=== PATIENT | female | born 1945 | race Caucasian/White ===

== ENCOUNTER 2023-01-04 14:50 | Emergency (ER) | payer OTHER ==
--- OUTSIDE RECORDS SUMMARY | 2023-01-04 14:58 | XMS REPORT | Continuity of Care Document ---
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 Ibuprofen 2021-03 Yes 400mg Take 400 John sey 200 MG oral 0-05 mg by Seybold Cap 10:57: mouth 2 - 02 times Externa daily l Doxylamine 2021-03 Yes Take by Christi ey Succinate, 0-05 mouth Seybold Sleep, 10:57: nightly - (SLEEP AID 02 Externa OR) l Aspirin 81 2021-03 Yes 81mg Take 81 mg K elsey MG oral 0-05 by mouth Seybold Tablet 10:57: daily - Delayed 02 Externa Response l Ibuprofen 2021-03 Yes 400mg Take 400 John sey 200 MG oral 0-05 mg by Seybold Cap 10:57: mouth 2 - 02 times Externa daily l Doxylamine 2021-03 Yes Take by Christi ey Succinate, 0-05 mouth Seybold Sleep, 10:57: nightly - (SLEEP AID 02 Externa OR) l HYDROcodone 2021-03 Yes [id number] 1{tbl} Q.[id number] Take 1 [place] -Acetaminop 0-03 [id number] tablet by Anapsis hen 10-325 00:00: 3D mouth - MG oral 00 every 8 Externa Tablet hours as l needed for pain Ezetimibe 2021-03 Yes 10mg Take 1 [place] 10 MG oral 0-03 tablet (10 Sey bold Tablet 00:00: mg total) - 00 by mouth Externa daily l HYDROcodone 2021-03 Yes [id number] 1{tbl} Q.[id number] Take 1 [place] -Acetaminop 0-03 [id number] tablet by Seybold hen 10-325 00:00: 3D mouth - MG oral 00 every 8 Externa Tablet hours as l needed for pain Ezetimibe 2021-03 Yes 10mg Take 1 [place] 10 MG oral 0-03 tablet (10 Sey bold Tablet 00:00: mg total) - 00 by mouth Externa daily l HYDROcodone 2021-03 Yes [id number] 1{tbl} Q.[id number] Take 1 [place] -Acetaminop 0-03 [id number] tablet by Seybold hen 10-325 00:00: 3D mouth - MG oral 00 every 8 Externa Tablet hours as l needed for pain Ezetimibe 2021-03 Yes 10mg Take 1 [place] 10 MG oral 0-03 tablet (10 Sey bold Tablet 00:00: mg total) - 00 by mouth Externa daily l Pantoprazol Yes 40mg TAKE 1 Christi ey e Sodium 40 9-20 TABLET (40 Se ybold MG oral 00:00: MG TOTAL) - Tablet 00 BY MOUTH Externa Delayed DAILY l Response Alprazolam Yes .25mg Q.5D Take 1 Christi ey 0.25 MG 9-20 tablet Seybold oral Tablet 00:00: (0.25 mg - 00 total) by Externa mouth 2 l times daily as needed for sleep Pantoprazol 0 Yes 40mg TAKE 1 Christi ey e Sodium 40 9-20 TABLET (40 Se ybold MG oral 00:00: MG TOTAL) - Tablet 00 BY MOUTH Externa Delayed DAILY l Response Alprazolam Yes .25mg Q.5D Take 1 Christi ey 0.25 MG 9-20 tablet Seybold oral Tablet 00:00: (0.25 mg - 00 total) by Externa mouth 2 l times daily as needed for sleep Pantoprazol 2021-0 Yes 40mg TAKE 1 Christi ey e Sodium 40 9-20 TABLET (40 Se ybold MG oral 00:00: MG TOTAL) - Tablet 00 BY MOUTH Externa Delayed DAILY l Response Alprazolam 0 Yes .25mg Q.5D Take 1 Christi ey 0.25 MG 9-20 tablet Seybold oral Tablet 00:00: (0.25 mg - 00 total) by Externa mouth 2 l times daily as needed for sleep predniSONE 0 Yes 2.5mg Take 1 Christi ey 2.5 MG oral 9-12 tablet Seybol d Tablet 00:00: (2.5 mg - 00 total) by Externa mouth l daily FLUTICASONE 0 Yes INSTILL John sey PROPIONATE, 12-04 TWO (2) Seybo ld NASAL, 50 00:00: SPRAY(S) - MCG/ACT 00 INTO EACH Externa nasal NOSTRIL l Suspension ONCE A DAY IN THE MORNING. Pregabalin 2021-0 Yes 1 po q HS Ke lsey (Lyrica) 25 12-04 x 7 days, Sey bold MG oral 00:00: then 1 po - Capsule 00 BID Externa l Acetaminoph 2021- No TAKE 1 John sey en-Codeine 12-04 10-05 TABLET BY y bold #3 300-30 00:00: 00:00 MOUTH - MG oral 00 :00 EVERY 8 Externa Tablet HOURS l NEEDED FOR PAIN Acyclovir 0 Yes TAKE [place] 800 MG oral 12-03 ONE-HALF Seyb old Tablet 00:00: (03/31) - 00 TABLETS Externa (400 MG l TOTAL) BY MOUTH 5 TIMES DAILY. Acyclovir 2021-0 Yes TAKE [place] 800 MG oral 12-03 ONE-HALF Seyb old Tablet 00:00: (03/31) - 00 TABLETS Externa (400 MG l TOTAL) BY MOUTH 5 TIMES DAILY. Acyclovir 2021-0 Yes TAKE [place] 800 MG oral 9- ONE-HALF Seyb old Tablet 00:00: (03/31) - 00 TABLETS Externa (400 MG l TOTAL) BY MOUTH 5 TIMES DAILY. Acyclovir 2021-0 Yes TAKE [place] 800 MG oral - ONE-HALF Seyb old Tablet 00:00: (03/31) - 00 TABLETS Externa (400 MG l TOTAL) BY MOUTH 5 TIMES DAILY. Leflunomide 2021-0 2021- No 10mg Take 1 John sey (Arava) 10 8-24 10-05 tablet (10 Se ybold MG oral 00:00: 00:00 mg total) - Tablet 00 :00 by mouth Externa daily l Clopidogrel 2021-0 Yes TAKE 1 Christi ey Bisulfate 8-21 (ONE) Seybold 75 MG oral 00:00: TABLET BY - Tablet 00 MOUTH Externa DAILY l Clopidogrel 2021-0 Yes TAKE 1 Christi ey Bisulfate 8-21 (ONE) Seybold 75 MG oral 00:00: TABLET BY - Tablet 00 MOUTH Externa DAILY l Clopidogrel 2021-0 Yes TAKE 1 Christi ey Bisulfate 8-21 (ONE) Seybold 75 MG oral 00:00: TABLET BY - Tablet 00 MOUTH Externa DAILY l methylPREDN 0 2021- No 1{melony} Take 1 melony Newsome ISolone 8-18 10-05 by mouth Seybold (Medrol) 4 00:00: 00:00 See Admin - MG oral 00 :00 Instructio [employer] a Tablet ns Use as l Therapy directed. Pack Tramadol Yes TAKE ONE Kelse y HCl 50 MG 7-11 (1) TO TWO Seyb old oral Tablet 00:00: (2) - 00 TABLET(S) Externa BY MOUTH l TWICE A DAY. ROPINIROLE 2021-0 Yes 2mg Take 1 Kelse y HYDROCHLORI 6-20 tablet (2 Sey bold DE 2 MG 00:00: mg total) - oral Tablet 00 by mouth Exte rna nightly l Lisinopril 2021-0 Yes 10mg Take 1 Kelse y 10 MG oral 6-20 tablet (10 Sey bold Tablet 00:00: mg total) - 00 by mouth Externa daily Last l refill. Please call to schedule follow up appointmen t. ROPINIROLE 2021-0 Yes 2mg Take 1 Kelse y HYDROCHLORI 6-20 tablet (2 Sey bold DE 2 MG 00:00: mg total) - oral Tablet 00 by mouth Exte rna nightly l Lisinopril 2021-0 Yes 10mg Take 1 Kelse y 10 MG oral 6-20 tablet (10 Sey bold Tablet 00:00: mg total) - 00 by mouth Externa daily Last l refill. Please call to schedule follow up appointmen t. ROPINIROLE 2021-0 Yes 2mg Take 1 Kelse y HYDROCHLORI 6-20 tablet (2 Sey bold DE 2 MG 00:00: mg total) - oral Tablet 00 by mouth Exte rna nightly l Lisinopril 2021-0 Yes 10mg Take 1 Kelse y 10 MG oral 6-20 tablet (10 Sey bold Tablet 00:00: mg total) - 00 by mouth Externa daily Last l refill. Please call to schedule follow up kyara florentino Aspirin 81 2021-0 Yes 81mg Take 81 mg K elsey MG oral 6-06 by mouth Seybold Tablet 14:03: daily Delayed 06 Response Ibuprofen 2021-0 Yes 400mg Take 400 John sey 200 MG oral 6-06 mg by Seybold Cap 14:03: mouth 2 06 times daily Doxylamine Yes Take by Christi ey Succinate, 6-06 mouth Seybold Sleep, 14:03: nightly (SLEEP AID 06 OR) methylPREDN 2021-0 Yes [id number] 1{melony} Take 1 melony [place] ISolone 6-06 [id number] by mouth Seybol d (Medrol) 4 00:00: See Admin MG oral 00 Instructio Tablet ns Use as Therapy directed. Pack methylPREDN 2021- No [id number] 1{meloyn} Take 1 melony [place] ISolone 6-06 10-05 [id number] by mouth Seybo ld (Medrol) 4 00:00: 00:00 See Admin - MG oral 00 :00 [employer] a Tablet ns Use as l Therapy directed. Pack FLUTICASONE Yes INSTILL John sey PROPIONATE, 5-24 TWO (2) Seybo ld NASAL, 50 00:00: SPRAY(S) MCG/ACT 00 INTO EACH nasal NOSTRIL Suspension ONCE A DAY IN THE MORNING. Alprazolam Yes .25mg Q.5D TAKE 1 Christi ey 0.25 MG 5-09 TABLET Seybold oral Tablet 00:00: (0.25 MG 00 TOTAL) BY MOUTH NEEDED IN THE MORNING AND 1 TABLET (0.25 MG TOTAL) NEEDED IN THE EVENING. Tramadol Yes TAKE ONE Kelse y HCl 50 MG 5-09 (1) TO TWO Seyb old oral Tablet 00:00: (2) 00 TABLET(S) BY MOUTH TWICE A DAY. Acetaminoph Yes TAKE 1 Christi ey en-Codeine 5-09 TABLET BY Seyb old #3 300-30 00:00: MOUTH MG oral 00 EVERY 8 Tablet HOURS NEEDED FOR PAIN Trazodone Yes TAKE 1 [place] HCl 100 MG 4-25 TABLET BY Seyb old oral Tablet 00:00: MOUTH ONCE 00 DAILY AT BEDTIME Trazodone 2021-0 Yes TAKE 1 [place] HCl 100 MG 4-25 TABLET BY Seyb old oral Tablet 00:00: MOUTH ONCE 00 DAILY AT BEDTIME Trazodone 2021-0 Yes TAKE 1 [place] HCl 100 MG 4-25 TABLET BY Seyb old oral Tablet 00:00: MOUTH ONCE - 00 DAILY AT Externa BEDTIME l HYDROcodone Yes [id number] 1{tbl} Q.[id number] Take 1 [place] -Acetaminop 4-14 [id number] tablet by Seybold hen 10-325 00:00: 3D mouth MG oral 00 every 8 Tablet hours as needed for pain HYDROcodone Yes [id number] 1{tbl} Q.[id number] Take 1 [place] -Acetaminop 4-14 [id number] tablet by Seybold hen 10-325 00:00: 3D mouth MG oral 00 every 8 Tablet hours as needed for pain Alprazolam 2021- No .25mg Q.5D TAKE 1 John sey 0.25 MG 4-08 -09 TABLET Seybold oral Tablet 00:00: 00:00 (0.25 MG 00 :00 TOTAL) BY MOUTH NEEDED IN THE MORNING AND 1 TABLET (0.25 MG TOTAL) NEEDED IN THE EVENING. Acyclovir Yes TAKE 1 [place] 800 MG oral 3-31 TABLET BY Sey bold Tablet 00:00: MOUTH 5 00 TIMES DAILY AND THEN NEEDED Acyclovir Yes TAKE 1 [place] 800 MG oral 3-31 TABLET BY Sey bold Tablet 00:00: MOUTH 5 00 TIMES DAILY AND THEN NEEDED Tramadol 2021-0 2021- No TAKE ONE Christi ey HCl 50 MG 3-31 05-09 (1) TO TWO Sey bold oral Tablet 00:00: 00:00 (2) 00 :00 TABLET(S) BY MOUTH TWICE A DAY. ROPINIROLE Yes 2mg TAKE 1 Kelse y HYDROCHLORI 3-20 TABLET (2 Sey bold DE 2 MG 00:00: MG TOTAL) oral Tablet 00 BY MOUTH NIGHTLY Pantoprazol Yes TAKE ONE Ke lsey e Sodium 40 3-20 (1) Seybold MG oral 00:00: TABLET(S) Tablet 00 BY MOUTH Delayed ONCE A Response DAY. ROPINIROLE Yes 2mg TAKE 1 Kelse y HYDROCHLORI 3-20 TABLET (2 Sey bold DE 2 MG 00:00: MG TOTAL) oral Tablet 00 BY MOUTH NIGHTLY Pantoprazol Yes TAKE ONE Ke lsey e Sodium 40 3-20 (1) Seybold MG oral 00:00: TABLET(S) Tablet 00 BY MOUTH Delayed ONCE A Response DAY. Citalopram Yes TAKE ONE John y Hydrobromid 3-16 (1) Seybold e 20 MG 00:00: TABLET(S) oral Tablet 00 BY MOUTH DAILY AT BEDTIME TOGETHER WITH A 10 MG FOR A TOTAL OF 30 MG. Citalopram Yes TAKE ONE John y Hydrobromid 3-16 (1) Seybold e 10 MG 00:00: TABLET(S) oral Tablet 00 BY MOUTH DAILY AT BEDTIME TOGETHER WITH A 20 MG FOR A TOTAL OF 30 MG DAILY. Citalopram Yes TAKE ONE John aquinoy Hydrobromid 3-16 (1) Seybold e 20 MG 00:00: TABLET(S) oral Tablet 00 BY MOUTH DAILY AT BEDTIME TOGETHER WITH A 10 MG FOR A TOTAL OF 30 MG. Citalopram Yes TAKE ONE John aquinoy Hydrobromid 3-16 (1) Seybold e 10 MG 00:00: TABLET(S) oral Tablet 00 BY MOUTH DAILY AT BEDTIME TOGETHER WITH A 20 MG FOR A TOTAL OF 30 MG DAILY. Citalopram Yes TAKE ONE John aquinoy Hydrobromid 3-16 (1) Seybold e 20 MG 00:00: TABLET(S) - oral Tablet 00 BY MOUTH Exte rna DAILY AT l BEDTIME TOGETHER WITH A 10 MG FOR A TOTAL OF 30 MG. Citalopram Yes TAKE ONE John sey Hydrobromid 3-16 (1) Seybold e 10 MG 00:00: TABLET(S) - oral Tablet 00 BY MOUTH Exte rna DAILY AT l BEDTIME TOGETHER WITH A 20 MG FOR A TOTAL OF 30 MG DAILY. Citalopram Yes TAKE ONE John sey Hydrobromid 3-16 (1) Seybold e 10 MG 00:00: TABLET(S) - oral Tablet 00 BY MOUTH Exte rna DAILY AT l BEDTIME TOGETHER WITH A 20 MG FOR A TOTAL OF 30 MG DAILY. Citalopram 2021-0 Yes TAKE ONE John sey Hydrobromid 3-16 (1) Seybold e 10 MG 00:00: TABLET(S) - oral Tablet 00 BY MOUTH Exte rna DAILY AT l BEDTIME TOGETHER WITH A 20 MG FOR A TOTAL OF 30 MG DAILY. Levothyroxi 2021-0 Yes [id number] TAKE ONE [place] ne Sodium 3-08 (1) Seybold 88 MCG oral 00:00: TABLET(S) Tablet 00 BY MOUTH DAILY. Levothyroxi 2021-0 Yes [id number] TAKE ONE [place] ne Sodium 3-08 (1) Seybold 88 MCG oral 00:00: TABLET(S) Tablet 00 BY MOUTH DAILY. Levothyroxi 2021-0 Yes [id number] TAKE ONE [place] ne Sodium 3-08 (1) Seybold 88 MCG oral 00:00: TABLET(S) - Tablet 00 BY MOUTH Externa DAILY. l Levothyroxi 2021-0 Yes [id number] TAKE ONE [place] ne Sodium 3-08 (1) Seybold 88 MCG oral 00:00: TABLET(S) - Tablet 00 BY MOUTH Externa DAILY. l Levothyroxi 2021-0 Yes [id number] TAKE ONE [place] ne Sodium 3-08 (1) Seybold 88 MCG oral 00:00: TABLET(S) - Tablet 00 BY MOUTH Externa DAILY. l Tizanidine 2021-0 Yes 4mg Q.[id number] Take 1 [place] HCl 4 MG 3-07 [id number] tablet (4 Seybold oral Tablet 00:00: 3D mg total) 00 by mouth every 8 hours as needed FLUTICASONE 2021-0 Yes 100ug Use 2 Christi ey PROPIONATE, 3-07 sprays Seybol d NASAL, 50 00:00: (100 mcg MCG/ACT 00 total) in nasal each Suspension nostril in the morning. Tizanidine 2-0 Yes 4mg Q.[id number] Take 1 [place] HCl 4 MG 3-07 [id number] tablet (4 Seybold oral Tablet 00:00: 3D mg total) 00 by mouth every 8 hours as needed Tizanidine 2-0 Yes 4mg Q.[id number] Take 1 [place] HCl 4 MG 3-07 [id number] tablet (4 Seybold oral Tablet 00:00: 3D mg total) - 00 by mouth Externa every 8 l hours as needed Tizanidine 2021-0 Yes 4mg Q.[id number] Take 1 [place] HCl 4 MG 3-07 [id number] tablet (4 Seybold oral Tablet 00:00: 3D mg total) - 00 by mouth Externa every 8 l hours as needed Tizanidine 2021-0 Yes 4mg Q.[id number] Take 1 [place] HCl 4 MG 3-07 [id number] tablet (4 Seybold oral Tablet 00:00: 3D mg total) - 00 by mouth Externa every 8 l hours as needed Lisinopril Yes TAKE 1 Kelse y 10 MG oral 2-23 TABLET (10 Sey bold Tablet 00:00: MG TOTAL) 00 BY MOUTH DAILY Lisinopril 0 Yes TAKE 1 Kelse y 10 MG oral 2-23 TABLET (10 Sey bold Tablet 00:00: MG TOTAL) 00 BY MOUTH DAILY Ibuprofen Yes 400mg Take 400 John sey 200 MG oral 2-18 mg by Seybold Cap 08:54: mouth 2 51 times daily Doxylamine Yes Take by Christi ey Succinate, 2-18 mouth Seybold Sleep, 08:54: nightly (SLEEP AID 51 OR) Aspirin Yes 81mg Take 81 mg Christi ey (KARYN 2-18 by mouth Seybold ASPIRIN EC 08:48: daily LOW DOSE) 52 81 MG OR TBEC Amlodipine Yes [id number] 2.5mg TAKE 1 [place] Besylate 1-17 TABLET Seybold 2.5 MG oral 00:00: (2.5 MG Tablet 00 TOTAL) BY MOUTH EVERY MORNING Amlodipine 2021- Yes [id number] 2.5mg TAKE 1 [place] Besylate 1-17 TABLET Seybold 2.5 MG oral 00:00: (2.5 MG Tablet 00 TOTAL) BY MOUTH EVERY MORNING Amlodipine 2021-0 Yes [id number] 2.5mg TAKE 1 [place] Besylate 1-17 TABLET Seybold 2.5 MG oral 00:00: (2.5 MG - Tablet 00 TOTAL) BY Externa MOUTH l EVERY MORNING Amlodipine Yes [id number] 2.5mg TAKE 1 [place] Besylate 1-17 TABLET Seybold 2.5 MG oral 00:00: (2.5 MG - Tablet 00 TOTAL) BY Externa MOUTH l EVERY MORNING Amlodipine Yes [id number] 2.5mg TAKE 1 [place] Besylate 1-17 TABLET Seybold 2.5 MG oral 00:00: (2.5 MG - Tablet 00 TOTAL) BY Externa MOUTH l EVERY MORNING Citalopram Yes Take 1 Kelse y Hydrobromid 1-14 tablet by Sey bold e 10 MG 00:00: mouth oral Tablet 00 daily at bedtime together with a 20 mg for a total of 30 mg daily. Citalopram Yes Take 1 Kelse y Hydrobromid 1-14 tablet by Sey bold e 10 MG 00:00: mouth oral Tablet 00 daily at bedtime together with a 20 mg for a total of 30 mg daily. Citalopram 2021- No Take 1 Christi ey Hydrobromid 1-14 10-05 tablet by Se ybold e 10 MG 00:00: 00:00 mouth - oral Tablet 00 :00 daily at Exte rna bedtime l together with a 20 mg for a total of 30 mg daily. Doxylamine Yes Take by Christi ey Succinate, 1-10 mouth Seybold Sleep, 15:49: nightly (SLEEP AID 09 OR) Aspirin Yes 81mg Take 81 mg Christi ey (KARYN 1-10 by mouth Seybold ASPIRIN EC 15:49: daily LOW DOSE) 08 81 MG OR TBEC Ibuprofen Yes 400mg Take 400 John sey 200 MG oral 1-10 mg by Seybold Cap 15:49: mouth 2 08 times daily Hydroxychlo Yes [id number] 200mg Take 1 [place] roquine 1-10 tablet Seybold Sulfate 200 00:00: (200 mg MG oral 00 total) by Tablet mouth 2 times daily predniSONE Yes [id number] Take 2 tab [place] 5 MG oral 1-10 for 1 week Seyb old Tablet 00:00: then 1 2 00 for 1 week then 1 tab for 1 week then 1/2 day predniSONE Yes [id number] Take 2 tab [place] 5 MG oral 1-10 for 1 week Seyb old Tablet 00:00: then 03/31 00 for 1 week then 1 tab for 1 week then 1/2 day predniSONE 2021-0 Yes [id number] Take 2 tab [place] 5 MG oral 1-10 for 1 week Seyb old Tablet 00:00: then 03/31 00 for 1 week then 1 tab for 1 week then 1/2 day Levothyroxi 0 Yes [id number] TAKE ONE [place] ne Sodium 1-06 (1) Seybold 88 MCG oral 00:00: TABLET(S) Tablet 00 BY MOUTH DAILY. Levothyroxi 0 Yes [id number] TAKE ONE [place] ne Sodium 1-06 (1) Seybold 88 MCG oral 00:00: TABLET(S) Tablet 00 BY MOUTH DAILY. Levothyroxi Yes [id number] TAKE ONE [place] ne Sodium 1-06 (1) Seybold 88 MCG oral 00:00: TABLET(S) Tablet 00 BY MOUTH DAILY. Levothyroxi 2022- No [id number] TAKE ONE [place] ne Sodium 1-06 10-05 (1) Seybold 88 MCG oral 00:00: 00:00 TABLET(S) - Tablet 00 :00 BY MOUTH Externa DAILY. l Levothyroxi Yes [id number] TAKE ONE [place] ne Sodium 1-05 (1) Seybold 88 MCG oral 00:00: TABLET(S) Tablet 00 BY MOUTH DAILY. HYDROcodone 2020-03 Yes [id number] 1{tbl} Q8H Take 1 [place] -Acetaminop 2-28 tablet by George tapia hen 10-325 00:00: mouth MG oral 00 every 8 Tablet hours as needed for pain FLUTICASONE 2020-03 Yes USE TWO John sey PROPIONATE, 2-17 (2) Seybold NASAL, 50 00:00: SPRAY(S) MCG/ACT 00 IN EACH nasal NOSTRIL Suspension ONCE A DAY. Pantoprazol 2020-03 Yes TAKE ONE Ke lsey e Sodium 40 2-17 (1) Seybold MG oral 00:00: TABLET(S) Tablet 00 BY MOUTH Delayed ONCE A Response DAY. Citalopram 2020-03 Yes TAKE ONE John sey Hydrobromid 2-13 (1) Seybold e 10 MG 00:00: TABLET(S) oral Tablet 00 BY MOUTH DAILY AT BEDTIME TOGETHER WITH A 20 MG FOR A TOTAL OF 30 MG DAILY. Citalopram 2020-03 Yes TAKE ONE John sey Hydrobromid 2-09 (1) Seybold e 20 MG 00:00: TABLET(S) oral Tablet 00 BY MOUTH DAILY AT BEDTIME TOGETHER WITH A 10 MG FOR A TOTAL OF 30 MG. Atorvastati 2020-03 Yes [id number] 40mg TAKE 1 [place] n Calcium 1-26 TABLET (40 Seyb old 40 MG oral 00:00: MG TOTAL) Tablet 00 BY MOUTH DAILY Atorvastati 2020-03 Yes [id number] 40mg TAKE 1 [place] n Calcium 1-26 TABLET (40 Seyb old 40 MG oral 00:00: MG TOTAL) Tablet 00 BY MOUTH DAILY Atorvastati 2020-03 Yes [id number] 40mg TAKE 1 [place] n Calcium 1-26 TABLET (40 Seyb old 40 MG oral 00:00: MG TOTAL) Tablet 00 BY MOUTH DAILY Atorvastati 2020-03 Yes [id number] 40mg TAKE 1 [place] n Calcium 1-26 TABLET (40 Seyb old 40 MG oral 00:00: MG TOTAL) - Tablet 00 BY MOUTH Externa DAILY l Atorvastati 2020-03 Yes [id number] 40mg TAKE 1 [place] n Calcium 1-26 TABLET (40 Seyb old 40 MG oral 00:00: MG TOTAL) - Tablet 00 BY MOUTH Externa DAILY l Atorvastati 2020-03 Yes [id number] 40mg TAKE 1 [place] n Calcium 1-26 TABLET (40 Seyb old 40 MG oral 00:00: MG TOTAL) - Tablet 00 BY MOUTH Externa DAILY l Tramadol 2020-03 Yes TAKE ONE Kelse y HCl 50 MG -24 (1) TO TWO Seyb old oral Tablet 00:00: (2) 00 TABLET(S) BY MOUTH TWICE A DAY. Ibuprofen 2020-03 Yes 400mg Take 400 John sey 200 MG oral 1-15 mg by Seybold Cap 14:58: mouth 2 38 times daily Doxylamine 2020-03 Yes Take by Christi ey Succinate, 1-15 mouth Seybold Sleep, 14:58: nightly (SLEEP AID 38 OR) Melatonin 2020-03- No Take by Christi ey 10 MG oral 1-15 11-15 mouth Seybold Tab 14:58: 00:00 38 :00 Aspirin 2020-03 Yes 81mg Take 81 mg Christi ey (KARYN 1-15 by mouth Seybold ASPIRIN EC 14:53: daily LOW DOSE) 48 81 MG OR TBEC Citalopram 2020-03 Yes TAKE ONE John sey Hydrobromid 1-15 (1) Seybold e 10 MG 00:00: TABLET(S) oral Tablet 00 BY MOUTH DAILY AT BEDTIME TOGETHER WITH A 20 MG FOR A TOTAL OF 30 MG DAILY. Levothyroxi 2020-03 Yes [id number] Take one [place] ne Sodium 1-09 tablet Seybold 88 MCG oral 00:00: daily Tablet 00 Alprazolam 2020-03 Yes TAKE ONE John sey 0.25 MG 1-08 (1) Seybold oral Tablet 00:00: TABLET(S) 00 BY MOUTH TWICE A DAY NEEDED. Alprazolam 2020-03 Yes TAKE ONE John sey 0.25 MG 1-08 (1) Seybold oral Tablet 00:00: TABLET(S) 00 BY MOUTH TWICE A DAY NEEDED. Trazodone 2020-03 Yes TAKE 1 [place] HCl 100 MG 0-25 TABLET BY Seyb old oral Tablet 00:00: MOUTH ONCE 00 DAILY AT BEDTIME Trazodone 2020-03 Yes TAKE 1 [place] HCl 100 MG 0-25 TABLET BY Seyb old oral Tablet 00:00: MOUTH ONCE 00 DAILY AT BEDTIME Tramadol 2020-03 Yes TAKE ONE Kelse y HCl 50 MG 0-21 (1) TO TWO Seyb old oral Tablet 00:00: (2) 00 TABLET(S) BY MOUTH TWICE A DAY. HYDROcodone 2020-03 Yes 1{tbl} Q8H Take 1 Ke lsey -Acetaminop 0-21 tablet by Sey bold hen 10-325 00:00: mouth MG oral 00 every 8 Tablet hours as needed for pain methylPREDN 2020-03 Yes [id number] 1{melony} Take 1 melony [place] ISolone 0-12 [id number] by mouth Seybol d (Medrol) 4 00:00: See Admin MG oral 00 Instructio Tablet ns Use as Therapy directed. Pack methylPREDN 2020-03 2022- No [id number] 1{melony} Take 1 melony [place] ISolone 0-12 01-10 [id number] by mouth Seybo ld (Medrol) 4 00:00: 00:00 See Admin MG oral 00 :00 Instructio Tablet ns Use as Therapy directed. Pack Citalopram 2020-03 Yes Take 1 at Ke lsey Hydrobromid 0-10 HS Seybold e 20 MG 00:00: together oral Tablet 00 with a 10 mg for a total of 30 mg. Ezetimibe 2020-03 Yes 10mg Take 1 [place] 10 MG oral 0-08 tablet (10 Sey bold Tablet 00:00: mg total) 00 by mouth daily Ezetimibe 2020-03 Yes 10mg Take 1 [place] 10 MG oral 0-08 tablet (10 Sey bold Tablet 00:00: mg total) 00 by mouth daily Ezetimibe 2020-03 Yes 10mg Take 1 [place] 10 MG oral 0-08 tablet (10 Sey bold Tablet 00:00: mg total) 00 by mouth daily Ezetimibe 2020-03 Yes 10mg Take 1 [place] 10 MG oral 0-08 tablet (10 Sey bold Tablet 00:00: mg total) 00 by mouth daily Aspirin 2020-03 Yes 81mg Take 81 mg Christi ey (KARYN 0-01 by mouth Seybold ASPIRIN EC 14:31: daily LOW DOSE) 19 81 MG OR TBEC Ibuprofen 2020-03 Yes 400mg Take 400 John sey 200 MG oral 0-01 mg by Seybold Cap 14:31: mouth 2 19 times daily Melatonin 2020-03 Yes Take by Kelse y 10 MG oral 0-01 mouth Seybold Tab 14:31: 19 methylPREDN 2020-03 Yes [id number] 1{melony} Take 1 melony Newsome ISolone 0-01 [id number] by mouth Seybol d (Medrol) 4 00:00: See Admin MG oral 00 Instructio Tablet ns Use as Therapy directed. Pack Pantoprazol Yes TAKE ONE Ke lsey e Sodium 40 9-16 (1) Seybold MG oral 00:00: TABLET(S) Tablet 00 BY MOUTH Delayed ONCE A Response DAY. Pantoprazol Yes TAKE ONE Ke lsey e Sodium 40 9-16 (1) Seybold MG oral 00:00: TABLET(S) Tablet 00 BY MOUTH Delayed ONCE A Response DAY. Citalopram Yes 20mg Take 1 Kelse y Hydrobromid 9-14 tablet (20 Se ybold e 20 MG 00:00: mg total) oral Tablet 00 by mouth daily Cevimeline Yes TAKE 1 TO Ke lsey HCl 30 MG 9-11 3 CAPSULES Seyb old oral 00:00: BY MOUTH Capsule 00 NEEDED FOR DRY MOUTH Cevimeline Yes TAKE 1 TO Ke lsey HCl 30 MG 9-11 3 CAPSULES Seyb old oral 00:00: BY MOUTH Capsule 00 NEEDED FOR DRY MOUTH Tramadol Yes TAKE ONE Kelse y HCl 50 MG 8-30 (1) TO TWO Seyb old oral Tablet 00:00: (2) 00 TABLET(S) BY MOUTH TWICE A DAY. Lisinopril Yes 10mg TAKE 1 Kelse y 10 MG oral 8-25 TABLET (10 Sey bold Tablet 00:00: MG TOTAL) 00 BY MOUTH DAILY Lisinopril Yes 10mg TAKE 1 Kelse y 10 MG oral 8-25 TABLET (10 Sey bold Tablet 00:00: MG TOTAL) 00 BY MOUTH DAILY Lisinopril Yes 10mg TAKE 1 Kelse y 10 MG oral 8-25 TABLET (10 Sey bold Tablet 00:00: MG TOTAL) 00 BY MOUTH DAILY HYDROcodone Yes 1{tbl} Q8H Take 1 Ke lsey -Acetaminop 8-23 tablet by Sey bold hen 10-325 00:00: mouth MG oral 00 every 8 Tablet hours as needed for pain Amlodipine Yes [id number] 2.5mg TAKE 1 [place] Besylate 7-23 TABLET Seybold 2.5 MG oral 00:00: (2.5 MG Tablet 00 TOTAL) BY MOUTH EVERY MORNING Amlodipine Yes [id number] 2.5mg TAKE 1 [place] Besylate 7-23 TABLET Seybold 2.5 MG oral 00:00: (2.5 MG Tablet 00 TOTAL) BY MOUTH EVERY MORNING Amlodipine Yes [id number] 2.5mg TAKE 1 [place] Besylate 7-23 TABLET Seybold 2.5 MG oral 00:00: (2.5 MG Tablet 00 TOTAL) BY MOUTH EVERY MORNING Chlorhexidi Yes RINSE Kelse y ne 7-07 MOUTH WITH Seybold Gluconate 00:00: 15ML (1 0.12 % 00 CAPFUL) mouth/throa FOR 30 t Solution SECONDS MORNING AND EVENING AFTER TOOTHBRUSH ING. EXPECTORAT E AFTER RINSING, DO NOT SWALLOW. Clindamycin Yes TAKE ONE Ke lsey HCl 300 MG 10-03 (1) Seybold oral 00:00: CAPSULE BY Capsule 00 MOUTH EVERY EIGHT HOURS UNTIL ALL TAKEN. THIS MEDICATION MAY CAUSE GASTROINTE STINAL UPSET, IF SYMPTOMS OCCUR CALL T Chlorhexidi Yes RINSE Liz hansen 10-03 MOUTH WITH Seybold Gluconate 00:00: 15ML (1 0.12 % 00 CAPFUL) mouth/throa FOR 30 t Solution SECONDS MORNING AND EVENING AFTER TOOTHBRUSH ING. EXPECTORAT E AFTER RINSING, DO NOT SWALLOW. Clindamycin Yes TAKE ONE Ke lsey HCl 300 MG 10-03 (1) Seybold oral 00:00: CAPSULE BY Capsule 00 MOUTH EVERY EIGHT HOURS UNTIL ALL TAKEN. THIS MEDICATION MAY CAUSE GASTROINTE STINAL UPSET, IF SYMPTOMS OCCUR CALL T Chlorhexidi Yes RINSE Liz hansen 10-03 MOUTH WITH Seybold Gluconate 00:00: 15ML (1 0.12 % 00 CAPFUL) mouth/throa FOR 30 t Solution SECONDS MORNING AND EVENING AFTER TOOTHBRUSH ING. EXPECTORAT E AFTER RINSING, DO NOT SWALLOW. Clindamycin Yes TAKE ONE Ke lsey HCl 300 MG 10-03 (1) Seybold oral 00:00: CAPSULE BY Capsule 00 MOUTH EVERY EIGHT HOURS UNTIL ALL TAKEN. THIS MEDICATION MAY CAUSE GASTROINTE STINAL UPSET, IF SYMPTOMS OCCUR CALL T Chlorhexidi Yes RINSE Liz hansen 10-03 MOUTH WITH Seybold Gluconate 00:00: 15ML (1 0.12 % 00 CAPFUL) mouth/throa FOR 30 t Solution SECONDS MORNING AND EVENING AFTER TOOTHBRUSH ING. EXPECTORAT E AFTER RINSING, DO NOT SWALLOW. Clindamycin Yes TAKE ONE Ke lsey HCl 300 MG 10-03 (1) Seybold oral 00:00: CAPSULE BY Capsule 00 MOUTH EVERY EIGHT HOURS UNTIL ALL TAKEN. THIS MEDICATION MAY CAUSE GASTROINTE STINAL UPSET, IF SYMPTOMS OCCUR CALL T Chlorhexidi Yes RINSE Liz hansen 7-07 MOUTH WITH Seybold Gluconate 00:00: 15ML (1 - 0.12 % 00 CAPFUL) Externa mouth/throa FOR 30 l t Solution SECONDS MORNING AND EVENING AFTER TOOTHBRUSH ING. EXPECTORAT E AFTER RINSING, DO NOT SWALLOW. Clindamycin Yes TAKE ONE Ke lsey HCl 300 MG 10-03 (1) Seybold oral 00:00: CAPSULE BY - Capsule 00 MOUTH Externa EVERY l EIGHT HOURS UNTIL ALL TAKEN. THIS MEDICATION MAY CAUSE GASTROINTE STINAL UPSET, IF SYMPTOMS OCCUR CALL T Chlorhexidi Yes RINSE Liz hansen 7- MOUTH WITH Seybold Gluconate 00:00: 15ML (1 - 0.12 % 00 CAPFUL) Externa mouth/throa FOR 30 l t Solution SECONDS MORNING AND EVENING AFTER TOOTHBRUSH ING. EXPECTORAT E AFTER RINSING, DO NOT SWALLOW. Clindamycin Yes TAKE ONE Ke lsey HCl 300 MG 10-03 (1) Seybold oral 00:00: CAPSULE BY - Capsule 00 MOUTH Externa EVERY l EIGHT HOURS UNTIL ALL TAKEN. THIS MEDICATION MAY CAUSE GASTROINTE STINAL UPSET, IF SYMPTOMS OCCUR CALL T Chlorhexidi Yes RINSE Liz hansen 7- MOUTH WITH Seybold Gluconate 00:00: 15ML (1 - 0.12 % 00 CAPFUL) Externa mouth/throa FOR 30 l t Solution SECONDS MORNING AND EVENING AFTER TOOTHBRUSH ING. EXPECTORAT E AFTER RINSING, DO NOT SWALLOW. Clindamycin Yes TAKE ONE Ke lsey HCl 300 MG 10-03 (1) Seybold oral 00:00: CAPSULE BY - Capsule 00 MOUTH Externa EVERY l EIGHT HOURS UNTIL ALL TAKEN. THIS MEDICATION MAY CAUSE GASTROINTE STINAL UPSET, IF SYMPTOMS OCCUR CALL T Chlorhexidi Yes RINSE Liz hansen 7-07 MOUTH WITH Seybold Gluconate 00:00: 15ML (1 - 0.12 % 00 CAPFUL) Externa mouth/throa FOR 30 l t Solution SECONDS MORNING AND EVENING AFTER TOOTHBRUSH ING. EXPECTORAT E AFTER RINSING, DO NOT SWALLOW. Clindamycin Yes TAKE ONE Ke lsey HCl 300 MG 10-03 (1) Seybold oral 00:00: CAPSULE BY - Capsule 00 MOUTH Externa EVERY l EIGHT HOURS UNTIL ALL TAKEN. THIS MEDICATION MAY CAUSE GASTROINTE STINAL UPSET, IF SYMPTOMS OCCUR CALL T Chlorhexidi Yes RINSE Kelse y ne 7- MOUTH WITH Seybold Gluconate 00:00: 15ML (1 - 0.12 % 00 CAPFUL) Externa mouth/throa FOR 30 l t Solution SECONDS MORNING AND EVENING AFTER TOOTHBRUSH ING. EXPECTORAT E AFTER RINSING, DO NOT SWALLOW. Clindamycin Yes TAKE ONE Ke lsey HCl 300 MG 10-03 (1) Seybold oral 00:00: CAPSULE BY - Capsule 00 MOUTH Externa EVERY l EIGHT HOURS UNTIL ALL TAKEN. THIS MEDICATION MAY CAUSE GASTROINTE STINAL UPSET, IF SYMPTOMS OCCUR CALL T Chlorhexidi Yes RINSE Kelse y ne 7- MOUTH WITH Seybold Gluconate 00:00: 15ML (1 - 0.12 % 00 CAPFUL) Externa mouth/throa FOR 30 l t Solution SECONDS MORNING AND EVENING AFTER TOOTHBRUSH ING. EXPECTORAT E AFTER RINSING, DO NOT SWALLOW. Clindamycin Yes TAKE ONE Ke lsey HCl 300 MG 10-03 (1) Seybold oral 00:00: CAPSULE BY - Capsule 00 MOUTH Externa EVERY l EIGHT HOURS UNTIL ALL TAKEN. THIS MEDICATION MAY CAUSE GASTROINTE STINAL UPSET, IF SYMPTOMS OCCUR CALL T Chlorhexidi Yes RINSE Kelse y ne 7- MOUTH WITH Seybold Gluconate 00:00: 15ML (1 0.12 % 00 CAPFUL) mouth/throa FOR 30 t Solution SECONDS MORNING AND EVENING AFTER TOOTHBRUSH ING. EXPECTORAT E AFTER RINSING, DO NOT SWALLOW. Clindamycin Yes TAKE ONE Ke lsey HCl 300 MG 10-03 (1) Seybold oral 00:00: CAPSULE BY Capsule 00 MOUTH EVERY EIGHT HOURS UNTIL ALL TAKEN. THIS MEDICATION MAY CAUSE GASTROINTE STINAL UPSET, IF SYMPTOMS OCCUR CALL T ROPINIROLE Yes 2mg TAKE 1 Kelse y HYDROCHLORI 6-27 TABLET (2 Sey bold DE 2 MG 00:00: MG TOTAL) oral Tablet 00 BY MOUTH NIGHTLY ROPINIROLE 2020- Yes 2mg TAKE 1 Kelse y HYDROCHLORI 6-27 TABLET (2 Sey bold DE 2 MG 00:00: MG TOTAL) oral Tablet 00 BY MOUTH NIGHTLY ROPINIROLE Yes 2mg TAKE 1 Kelse y HYDROCHLORI 6-27 TABLET (2 Sey bold DE 2 MG 00:00: MG TOTAL) oral Tablet 00 BY MOUTH NIGHTLY Valacyclovi Yes [id number] 500mg Take 1 [place] r HCl 500 6-15 tablet Seybold MG oral 00:00: (500 mg Tablet 00 total) by mouth 2 times daily 1 tablet p.o twice daily for 3-5 days as needed per occurrence . Valacyclovi Yes [id number] 500mg Take 1 [place] r HCl 500 6-15 tablet Seybold MG oral 00:00: (500 mg Tablet 00 total) by mouth 2 times daily 1 tablet p.o twice daily for 3-5 days as needed per occurrence . Valacyclovi Yes [id number] 500mg Take 1 [place] r HCl 500 6-15 tablet Seybold MG oral 00:00: (500 mg Tablet 00 total) by mouth 2 times daily 1 tablet p.o twice daily for 3-5 days as needed per occurrence . Valacyclovi Yes [id number] 500mg Take 1 [place] r HCl 500 6-15 tablet Seybold MG oral 00:00: (500 mg Tablet 00 total) by mouth 2 times daily 1 tablet p.o twice daily for 3-5 days as needed per occurrence . Valacyclovi Yes [id number] 500mg Take 1 [place] r HCl 500 6-15 tablet Seybold MG oral 00:00: (500 mg - Tablet 00 total) by Externa mouth 2 l times daily 1 tablet p.o twice daily for 3-5 days as needed per occurrence . Valacyclovi Yes [id number] 500mg Take 1 [place] r HCl 500 6-15 tablet Seybold MG oral 00:00: (500 mg - Tablet 00 total) by Externa mouth 2 l times daily 1 tablet p.o twice daily for 3-5 days as needed per occurrence . Valacyclovi Yes [id number] 500mg Take 1 [place] r HCl 500 6-15 tablet Seybold MG oral 00:00: (500 mg - Tablet 00 total) by Externa mouth 2 l times daily 1 tablet p.o twice daily for 3-5 days as needed per occurrence . Valacyclovi 0 Yes [id number] 500mg Take 1 [place] r HCl 500 6-15 tablet Seybold MG oral 00:00: (500 mg - Tablet 00 total) by Externa mouth 2 l times daily 1 tablet p.o twice daily for 3-5 days as needed per occurrence . Valacyclovi Yes [id number] 500mg Take 1 [place] r HCl 500 6-15 tablet Seybold MG oral 00:00: (500 mg - Tablet 00 total) by Externa mouth 2 l times daily 1 tablet p.o twice daily for 3-5 days as needed per occurrence . Valacyclovi Yes [id number] 500mg Take 1 [place] r HCl 500 6-15 tablet Seybold MG oral 00:00: (500 mg Tablet 00 total) by mouth 2 times daily 1 tablet p.o twice daily for 3-5 days as needed per occurrence . Valacyclovi 2023- No [id number] 500mg Take 1 [place] r HCl 500 6-15 06-13 tablet Seybold MG oral 00:00: 00:00 (500 mg - Tablet 00 :00 total) by Externa mouth 2 l times daily 1 tablet p.o twice daily for 3-5 days as needed per occurrence . Acyclovir Yes TAKE 1 [facility] 800 MG oral 6-07 TABLET BY Sey bold Tablet 00:00: MOUTH 5 00 TIMES DAILY AND THEN NEEDED Acyclovir Yes TAKE 1 [place] 800 MG oral 6-07 TABLET BY Sey bold Tablet 00:00: MOUTH 5 00 TIMES DAILY AND THEN NEEDED Acyclovir Yes TAKE 1 [place] 800 MG oral 6-07 TABLET BY Sey bold Tablet 00:00: MOUTH 5 00 TIMES DAILY AND THEN NEEDED Alprazolam 2020- No TAKE ONE Ke lsey 0.25 MG 6-07 10-08 (1) Seybold oral Tablet 00:00: 00:00 TABLET(S) 00 :00 BY MOUTH TWICE A DAY NEEDED. Tizanidine Yes TAKE ONE John sey HCl 4 MG 6-01 (1) Seybold oral Tablet 00:00: TABLET(S) 00 BY MOUTH EVERY EIGHT HOURS NEEDED FOR PAIN. Acetaminoph Yes TAKE 1 Christi ey en-Codeine 6-01 TABLET BY Seyb old #3 300-30 00:00: MOUTH MG oral 00 EVERY 8 Tablet HOURS NEEDED FOR PAIN Tizanidine 0 Yes TAKE ONE John sey HCl 4 MG 6-01 (1) Seybold oral Tablet 00:00: TABLET(S) 00 BY MOUTH EVERY EIGHT HOURS NEEDED FOR PAIN. Acetaminoph 0 Yes TAKE 1 Christi ey en-Codeine 6-01 TABLET BY Seyb old #3 300-30 00:00: MOUTH MG oral 00 EVERY 8 Tablet HOURS NEEDED FOR PAIN Tizanidine 0 Yes TAKE ONE John sey HCl 4 MG 6-01 (1) Seybold oral Tablet 00:00: TABLET(S) 00 BY MOUTH EVERY EIGHT HOURS NEEDED FOR PAIN. Acetaminoph Yes TAKE 1 Christi ey en-Codeine 6-01 TABLET BY Seyb old #3 300-30 00:00: MOUTH MG oral 00 EVERY 8 Tablet HOURS NEEDED FOR PAIN Clopidogrel 0 Yes 75mg TAKE 1 Christi ey Bisulfate 5-25 (ONE) Seybold 75 MG oral 00:00: TABLET BY Tablet 00 MOUTH DAILY Clopidogrel 2020-0 1- No 75mg TAKE 1 John sey Bisulfate 5-25 11-15 (ONE) Seybold 75 MG oral 00:00: 00:00 TABLET BY Tablet 00 :00 MOUTH DAILY Trazodone 0 Yes TAKE 1 [place] HCl 100 MG 4-26 TABLET BY Seyb old oral Tablet 00:00: MOUTH ONCE 00 DAILY AT BEDTIME OFLOXACIN, 0 Yes 4 drops Christi ey OPHTH, 0.3 3-24 left ear Seybo ld % 00:00: bid for 7 ophthalmic 00 days Solution Clobetasol 2020-0 Yes 3 drops Christi ey Propionate 3-24 right ear Seyb old 0.05 % 00:00: bid prn apply 00 itching externally Solution OFLOXACIN, 0 Yes 4 drops Christi ey OPHTH, 0.3 3-24 left ear Seybo ld % 00:00: bid for 7 ophthalmic 00 days Solution Clobetasol 2020-0 Yes 3 drops Christi ey Propionate 3-24 right ear Seyb old 0.05 % 00:00: bid prn apply 00 itching externally Solution OFLOXACIN, 2020-0 Yes 4 drops Christi ey OPHTH, 0.3 3-24 left ear Seybo ld % 00:00: bid for 7 ophthalmic 00 days Solution Clobetasol 2020-0 Yes 3 drops Christi ey Propionate 3-24 right ear Seyb old 0.05 % 00:00: bid prn apply 00 itching externally Solution OFLOXACIN, 2020-0 Yes 4 drops Christi ey OPHTH, 0.3 3-24 left ear Seybo ld % 00:00: bid for 7 ophthalmic 00 days Solution Clobetasol 2020-0 Yes 3 drops Christi ey Propionate 3-24 right ear Seyb old 0.05 % 00:00: bid prn apply 00 itching externally Solution OFLOXACIN, 2020-0 Yes 4 drops Christi ey OPHTH, 0.3 3-24 left ear Seybo ld % 00:00: bid for 7 - ophthalmic 00 days Externa Solution l Clobetasol 2020-0 Yes 3 drops Christi ey Propionate 3-24 right ear Seyb old 0.05 % 00:00: bid prn - apply 00 itching Externa externally l Solution OFLOXACIN, 2020-0 Yes 4 drops Christi ey OPHTH, 0.3 3-24 left ear Seybo ld % 00:00: bid for 7 - ophthalmic 00 days Externa Solution l Clobetasol 2020-0 Yes 3 drops Christi ey Propionate 3-24 right ear Seyb old 0.05 % 00:00: bid prn - apply 00 itching Externa externally l Solution OFLOXACIN, 2020-0 Yes 4 drops Christi ey OPHTH, 0.3 3-24 left ear Seybo ld % 00:00: bid for 7 - ophthalmic 00 days Externa Solution l Clobetasol 2020-0 Yes 3 drops Christi ey Propionate 3-24 right ear Seyb old 0.05 % 00:00: bid prn - apply 00 itching Externa externally l Solution OFLOXACIN, 2020-0 Yes 4 drops Christi ey OPHTH, 0.3 3-24 left ear Seybo ld % 00:00: bid for 7 - ophthalmic 00 days Externa Solution l OFLOXACIN, 2020-0 Yes 4 drops Christi ey OPHTH, 0.3 3-24 left ear Seybo ld % 00:00: bid for 7 - ophthalmic 00 days Externa Solution l OFLOXACIN, Yes 4 drops Christi ey OPHTH, 0.3 3-24 left ear Seybo ld % 00:00: bid for 7 - ophthalmic 00 days Externa Solution l OFLOXACIN, Yes 4 drops Christi ey OPHTH, 0.3 3-24 left ear Seybo ld % 00:00: bid for 7 ophthalmic 00 days Solution Clobetasol Yes 3 drops Christi ey Propionate 3-24 right ear Seyb old 0.05 % 00:00: bid prn apply 00 itching externally Solution Atorvastati Yes [id number] 40mg TAKE 1 [place] n Calcium 3-01 TABLET (40 Seyb old 40 MG oral 00:00: MG TOTAL) Tablet 00 BY MOUTH DAILY Atorvastati Yes [id number] 40mg TAKE 1 [place] n Calcium 3-01 TABLET (40 Seyb old 40 MG oral 00:00: MG TOTAL) Tablet 00 BY MOUTH DAILY Ezetimibe 2020- No 10mg Take 1 Kelse y (Zetia) 10 1-07 10-07 tablet (10 Se ybold MG oral Tab 00:00: 00:00 mg total) 00 :00 by mouth daily Gabapentin 2019-03 Yes [id number] TAKE ONE [place] 300 MG oral 2-05 (1) Seybold Cap 00:00: CAPSULE(S) 00 BY MOUTH ONCE A DAY AT BEDTIME. Gabapentin 2019-03- No [id number] TAKE ONE [place] 300 MG oral 2-05 11-15 (1) Seybold Cap 00:00: 00:00 CAPSULE(S) 00 :00 BY MOUTH ONCE A DAY AT BEDTIME. FLUTICASONE 2019-03 Yes USE TWO Ke lsey PROPIONATE, 2-01 (2) Seybold NASAL, 50 00:00: SPRAY(S) MCG/ACT 00 IN EACH nasal NOSTRIL Suspension ONCE A DAY. FLUTICASONE 2019-03 Yes USE TWO Ke lsey PROPIONATE, 2-01 (2) Seybold NASAL, 50 00:00: SPRAY(S) MCG/ACT 00 IN EACH nasal NOSTRIL Suspension ONCE A DAY. Levothyroxi 2019-03 Yes [id number] Take one [place] ne Sodium 1-05 tablet Seybold 88 MCG oral 00:00: daily Tab 00 Citalopram 2020-0 Yes [id number] 10mg Take 1 K elsey Hydrobromid 9-22 tablet (10 Se ybold e 10 MG 00:00: mg total) oral Tab 00 by mouth daily Cyanocobala 2020-0 Yes 1000ug Inject Ke lsey min (VIT 6-29 1,000 mcg Seybol d B12) 1000 00:00: as MCG/ML 00 directed injection once a Solution month Cyanocobala 2019-0 Yes 1000ug Inject Ke lsey min (VIT 6-29 1,000 mcg Seybol d B12) 1000 00:00: as MCG/ML 00 directed injection once a Solution month Cyanocobala 2019-0 Yes 1000ug Inject Ke lsey min (VIT 6-29 1,000 mcg Seybol d B12) 1000 00:00: as MCG/ML 00 directed injection once a Solution month Cyanocobala 0 Yes 1000ug Inject Ke lsey min (VIT 6-29 1,000 mcg Seybol d B12) 1000 00:00: as MCG/ML 00 directed injection once a Solution month Cyanocobala 0 Yes 1000ug Inject Ke lsey min (VIT 6-29 1,000 mcg Seybol d B12) 1000 00:00: as - MCG/ML 00 directed Externa injection once a l Solution month Cyanocobala 2019-0 Yes 1000ug Inject Ke lsey min (VIT 6-29 1,000 mcg Seybol d B12) 1000 00:00: as - MCG/ML 00 directed Externa injection once a l Solution month Cyanocobala 2019-0 Yes 1000ug Inject Ke lsey min (VIT 6-29 1,000 mcg Seybol d B12) 1000 00:00: as - MCG/ML 00 directed Externa injection once a l Solution month Cyanocobala 2019-0 Yes 1000ug Inject Ke lsey min (VIT 6-29 1,000 mcg Seybol d B12) 1000 00:00: as - MCG/ML 00 directed Externa injection once a l Solution month Cyanocobala 2019-0 Yes 1000ug Inject Ke lsey min (VIT 6-29 1,000 mcg Seybol d B12) 1000 00:00: as - MCG/ML 00 directed Externa injection once a l Solution month Cyanocobala 2020-0 Yes 1000ug Inject Ke lsey min (VIT 6-29 1,000 mcg Seybol d B12) 1000 00:00: as MCG/ML 00 directed injection once a Solution month Cyanocobala 2022- No 1000ug Inject K elsey min (VIT 6-29 06-13 1,000 mcg Seybo ld B12) 1000 00:00: 00:00 as - MCG/ML 00 :00 directed Externa injection once a l Solution month Diclofenac Yes 2g Apply 2 g [facility] Sodium 2-28 topically Seybold (VOLTAREN) 00:00: 2 times 1 % 00 daily transdermal Gel Diclofenac 2019-0 Yes 2g Apply 2 g [facility] Sodium 2-28 topically Seybold (VOLTAREN) 00:00: 2 times 1 % 00 daily transdermal Gel Diclofenac 2020-0 Yes 2g Apply 2 g [facility] Sodium 2-28 topically Seybold (VOLTAREN) 00:00: 2 times 1 % 00 daily transdermal Gel Diclofenac 2020-0 Yes 2g Apply 2 g [facility] Sodium 2-28 topically Seybold (VOLTAREN) 00:00: 2 times 1 % 00 daily transdermal Gel Diclofenac 2020-0 Yes 2g Apply 2 g [facility] Sodium 2-28 topically Seybold (VOLTAREN) 00:00: 2 times - 1 % 00 daily Externa transdermal l Gel Diclofenac 2019-0 Yes 2g Apply 2 g [facility] Sodium 2-28 topically Seybold (VOLTAREN) 00:00: 2 times - 1 % 00 daily Externa transdermal l Gel Diclofenac 2019-0 Yes 2g Apply 2 g [facility] Sodium 2-28 topically Seybold (VOLTAREN) 00:00: 2 times - 1 % 00 daily Externa transdermal l Gel Diclofenac 2020-0 Yes 2g Apply 2 g [facility] Sodium 2-28 topically Seybold (VOLTAREN) 00:00: 2 times 1 % 00 daily transdermal Gel ALPRAZolam Yes .25mg Take 0.[address] [facility] (XANAX) 5-23 mg by [facility] MG 09:52: mouth Medical tablet 04 every Center night as needed. traZODone 2018-0 Yes 100mg QD Take [address] [facility] (DESYREL) 5-23 mg by [facility] 100 MG 09:52: mouth Medical tablet 04 nightly. Center aspirin 81 Yes 81mg QD Take [address] MG EC 5-23 by mouth [facility] tablet 09:52: daily. Medical 04 Center citalopram 0 Yes 40mg QD Take [address] [facility] (CELEXA) 40 5-23 by mouth [facility] MG tablet 09:52: daily. Medica l 04 [place] levothyroxi Yes 100ug QD Take [address] ne 5-23 mcg by [facility] (SYNTHROID, 09:52: mouth Medic al LEVOTHROID) 04 daily. Center 100 MCG tablet pantoprazol Yes 40mg QD Take [address] [facility] e 5-23 by mouth [facility] (PROTONIX) 09:52: daily. Medic al 40 MG 04 Center tablet acyclovir Yes Take by [facility] (ZOVIRAX[facility]-23 [facility] 200 MG 09:52: every 4 Medical capsule 04 (four) Center hours while awake. ALPRAZolam Yes 1mg Take [address] [facility] (XANAX) 1 5-23 by mouth [facility] MG tablet 09:52: every Medical 04 night as Center needed for Anxiety. amLODIPine Yes 2.5mg QD Take 2.[address] [facility] [address] [facility] (NORVASC) 5-23 mg by [facility] 2.5 MG 09:52: mouth Medical tablet 04 daily. [place] atorvastati Yes 40mg QD Take [address] [facility] n (LIPITOR) 5-23 by mouth [facility] 40 MG 09:52: daily. Medical tablet 04 [place] ciprofloxac Yes 500mg Q.5D Take [address] in HCl 5-23 mg by [facility] (CIPRO) 500 09:52: mouth 2 Med ical MG tablet 04 (two) Center times daily. clobetasol 2018-0 Yes Q.5D Apply [facility] (CLOBEX) 5-23 topically [facility] 0.05 % 09:52: 2 (two) Medical lotion 04 times Center daily. clopidogrel Yes 75mg QD Take [address] [facility] (PLAVIX) 75 5-23 by mouth [facility] mg tablet 09:52: daily. Medica l 04 [place] cyanocobala Yes Inject as [facility] min, 5-23 directed. [facility] vitamin 09:52: Medical B-12, (B-12 04 Center COMPLIANCE INJ) diclofenac 2019-0 Yes Q.25D Apply [facility] % Gel 5-23 topically [facility] 09:52: 4 (four) Medical 04 times Center daily. fluticasone 2019-0 Yes 1{spray QD [address] [facility] propionate 5-23 } Nasal [facility] (FLONASE) 09:52: route Medical 50 04 daily. Center mcg/actuati on nasal spray HYDROcodone 2019-0 Yes 1{tbl} Take [address] [facility] [address] [facility] -acetaminop 5-23 tablet by Cristian escobedo (NORCO 09:52: mouth Medica l 5-325) 04 every 6 Center 5-325 mg (six) per tablet hours as needed for Pain. hydroxychlo 2019-0 Yes QD Take by [facility] roquine 5-23 [facility] (PLAQUENIL) 09:52: daily. Medi greg 200 mg 04 Center tablet ibuprofen 2019-0 Yes 200mg Take [address] [facility] (ADVIL,MOTR 5-23 mg by [facility] IN) 200 MG 09:52: mouth Medica l tablet 04 every 6 Center (six) hours as needed for Pain. lisinopril 2019-0 Yes 10mg QD Take [address] (PRINIVIL,Z 5-23 by mouth [facility] ESTRIL) 10 09:52: daily. Medic al MG tablet 04 Center rOPINIRole 2019-0 Yes 1mg [id number] Take [address] [facility] (REQUIP) 1 5-23 [id number] by mouth 3 [facility] MG tablet 09:52: 3D (three) Medic al 04 times Center daily. tiZANidine 2019-0 Yes 4mg Take [address] [facility] [address] [facility] 1 MG 5-23 by mouth [facility] halftab 09:52: every 6 Medical half tablet 04 (six) Center hours as needed. traMADol 2019-0 Yes 50mg Take [address] [facility] (ULTRAM) 50 5-23 by mouth [facility] mg tablet 09:52: every 6 Medic al 04 (six) Center hours as needed for Pain. diphenhydra 2019-0 Yes Take by [facility] mine HCl 5-23 mouth. [facility] (BENADRYL 09:52: Medical ALLERGY 04 Center ORAL) diphenhydra 2019-0 Yes Take by [facility] mine HCl 5-23 mouth. [facility] (ZZZQUIL 09:52: Medical ORAL) Center Vital Signs Vital Name Observation Time Observation Value Comments Source Systolic blood 2022-09-09 20:31:00 121 mm[Hg] [facility] Seybold - pressure External Diastolic blood 2022-09-09 20:31:00 54 mm[Hg] Kelse y Seybold - pressure External Heart rate 2022-09-09 20:31:00 87 /min [facility] S eybold - External Body temperature 2022-09-09 20:31:00 36.56 Ana Christi ey Seybold - External Respiratory rate 2022-09-09 20:31:00 15 /min Christi ey Seybold - External Body height 2022-09-09 20:31:00 157.5 cm [facility] Maldonado eybold - External Body weight 2022-09-09 20:31:00 62.596 kg [facility] Maldonado eybold - External BMI 2022-09-09 20:31:00 25.24 kg/m2 [facility] Maldonado eybold - External Oxygen saturation in 2022-09-09 20:31:00 99 /min [facility] Aquinoybold - Arterial blood by External Pulse oximetry Systolic blood 2022-07-07 21:14:00 130 mm[Hg] [facility] Seybold - pressure External Diastolic blood 2022-07-07 21:14:00 58 mm[Hg] Kelse y Seybold - pressure External Heart rate 2022-07-07 21:14:00 62 /min [facility] Maldonado eybold - External Body temperature 2022-07-07 21:14:00 36.44 Ana Christi ey Seybold - External Respiratory rate 2022-07-07 21:14:00 16 /min Christi ey Seybold - External Body height 2022-07-07 21:14:00 157.5 cm [facility] Maldonado eybold - External Body weight 2022-07-07 21:14:00 61.598 kg [facility] S eybold - External BMI 2022-07-07 21:14:00 24.84 kg/m2 [facility] S eybold - External Oxygen saturation in 2022-07-07 21:14:00 94 /min [facility] Seybold - Arterial blood by External Pulse oximetry Body height 2022-01-01 15:57:00 157.5 cm [facility] Maldonado eybold - External Body weight 2022-01-01 15:57:00 65.318 kg [facility] Maldonado eybold - External BMI 2022-01-01 15:57:00 26.34 kg/m2 [facility] Maldonado eybold - External Systolic blood 2021-04-08 21:44:00 142 mm[Hg] [facility] Seybold pressure Diastolic blood 2021-04-08 21:44:00 58 mm[Hg] Kelse y Seybold pressure Heart rate 2021-04-08 21:44:00 78 /min [place] S eybold Respiratory rate 2021-04-08 21:44:00 16 /min Christi ey Seybold Body height 2021-04-08 21:44:00 157.5 cm [facility] S eybold Body weight 2021-04-08 21:44:00 63.685 kg [facility] Maldonado eybold BMI 2021-04-08 21:44:00 25.68 kg/m2 [facility] S eybold Systolic blood 2021-02-11 20:51:00 142 mm[Hg] [facility] Seybold pressure Diastolic blood 2021-02-11 20:51:00 56 mm[Hg] Kelse y Seybold pressure Heart rate 2021-02-11 20:51:00 74 /min [facility] Maldonado eybold Body temperature 2021-02-11 20:51:00 37 Ana Christi ey Seybold Respiratory rate 2021-02-11 20:51:00 16 /min Christi ey Seybold Body height 2021-02-11 20:51:00 157.5 cm [facility] Maldonado eybold Body weight 2021-02-11 20:51:00 62.596 kg [facility] Maldonado eybold BMI 2021-02-11 20:51:00 25.24 kg/m2 [facility] Maldonado eybold Oxygen saturation in 2021-02-11 20:51:00 99 /min [facility] Aquinoybold Arterial blood by Pulse oximetry Height 2013-02-02 04:00:00 157.48 CM Weight 2013-02-02 04:00:00 54.43 KG Procedures Procedure Date / Time Performing Clinician Source Performed LUMBAR SPINE 2 VIEWS 2021-09-02 19:38:29 Lachelle Schwarz BILAT SHOULDER 3 VIEW 2020-12-28 20:26:42 Lachelle Schwarz (ORTHO) LEFT HEART CARDIAC CATH 2013-02-04 00:00:00 [facility] LT HEART ANGIOCARDIOGRAM 2013-02-04 00:00:00 [facility] COR ARTERIOGRAM-2 CATH 2013-02-04 00:00:00 [facility] APPLICATION OF SPLINT 2013-02-02 00:00:00 [facility] Encounters Start End Encounter Admission Attending Care Care Encounter Source Date/Time Date/Time Type Type Clinicians Facility Department ID 2023-01-01 2023-01-01 Outpatient MERCEDEZ WILSON [id number] [place] 00:00:00 00:00:00 EMMANUEL Seybol d 2022-12-12 2022-12-12 Outpatient MERCEDEZ ATKINSON [id number] [place] 00:00:00 00:00:00 DONYALE Seybol d 2022-12-12 2022-12-12 Outpatient MERCEDEZ DSOUZA [id number] [place] 00:00:00 00:00:00 VICK Seybol d 2022-12-04 2022-12-04 Outpatient MERCEDEZ WILSON [id number] [place] 00:00:00 00:00:00 EMMANUEL Seybol d 2022-11-21 2022-11-21 Outpatient MERCEDEZ ATKINSON [id number] [place] 00:00:00 00:00:00 DONYALE Seybol d 2022-11-17 2022-11-17 Outpatient MERCEDEZ OZUNA [id number] [place] 00:00:00 00:00:00 MEGAN Seybol d 2022-11-03 2022-11-03 Outpatient MERCEDEZ DSOUZA [id number] [place] 00:00:00 00:00:00 VICK Seybol d 2022-10-22 2022-10-22 Outpatient MERCEDEZ DSOUZA [id number] [place] 00:00:00 00:00:00 VICK Seybol d 2022-10-20 2022-10-20 Outpatient LAITHMERCEDEZ TAPIA [id number] [place] 00:00:00 00:00:00 MEGAN Seybol d 2022-09-17 2022-09-17 Outpatient MERCEDEZ DSOUZA [id number] [place] 00:00:00 00:00:00 VICK Seybol d 2022-09-15 2022-09-15 Outpatient PREZAMERCEDEZ Maldonado [id number] [place] 00:00:00 00:00:00 EMMANUEL Seybol d 2022-09-15 2022-09-15 Outpatient PREMERCEDEZ JONES [id number] [place] 00:00:00 00:00:00 EMMANUEL Seybol d 2022-09-15 2022-09-15 Outpatient MERCEDEZ NEWSOME [id number] [place] 00:00:00 00:00:00 Seybol d 2022-09-15 2022-09-15 Outpatient MERCEDEZ WILSON [id number] [place] 00:00:00 00:00:00 EMMANUEL Seybol d 2022-09-15 2022-09-15 Outpatient PREZAMERCEDEZ Maldonado [id number] [place] 00:00:00 00:00:00 EMMANUEL Seybol d 2022-09-10 2022-09-10 Outpatient MERCEDEZ DSOUZA [id number] [place] 00:00:00 00:00:00 VICK Seybol d 2022-09-10 2022-09-10 Outpatient MERCEDEZ DSOUZA [id number] [place] 00:00:00 00:00:00 VICK Seybol d 2022-09-10 2022-09-10 Outpatient MERCEDEZ CARMEN [id number] [place] 00:00:00 00:00:00 ONI Seybol d 2022-09-10 2022-09-10 Outpatient MERCEDEZ LYNN [id number] [place] 00:00:00 00:00:00 MNOIQUE Seybol d 2022-09-09 2022-09-09 Outpatient MERCEDEZ OZUNA [id number] [place] 15:15:00 15:15:00 MEGAN Seybol d 2022-09-09 2022-09-09 Outpatient LAITHMERCEDEZ TAPIA [id number] [place] 15:00:00 15:00:00 MEGAN Seybol d 2022-09-09 2022-09-09 Outpatient MERCEDEZ DSOUZA [id number] [place] 00:00:00 00:00:00 VICK Seybol d 2022-09-09 2022-09-09 Outpatient MERCEDEZ NEWSOME [id number] [place] 00:00:00 00:00:00 Seybol d 2022-09-09 2022-09-09 Outpatient MERCEDEZ LYNN [id number] [place] 00:00:00 00:00:00 MONIQUE Seybol d 2022-09-07 2022-09-07 Outpatient MERCEDEZ LYNN [id number] [place] 00:00:00 00:00:00 MONIQUE Seybol d 2022-08-28 2022-08-28 Outpatient MERCEDEZ OZUNA [id number] [place] 15:30:00 15:30:00 MEGAN Seybol d 2022-08-19 2022-08-19 Outpatient MERCEDEZ LYNN [id number] [place] 00:00:00 00:00:00 MONIQUE Seybol d 2022-08-17 2022-08-17 Outpatient MERCEDEZ ATKINSON [id number] [place] 00:00:00 00:00:00 DONYALE Seybol d 2022-08-14 2022-08-14 Outpatient MIRZAITEA [facility] NEWSOME [id number] [place] 00:00:00 00:00:00 DAVONTE HANSEN 2022-08-14 2022-08-14 Outpatient MERCEDEZ ATKINSON [id number] [place] 00:00:00 00:00:00 DONYALE Seybol d 2022-08-10 2022-08-10 Outpatient MERCEDEZ LYNN [id number] [place] 00:00:00 00:00:00 MONIQUE Seybol d 2022-08-08 2022-08-08 Outpatient MERCEDEZ DSOUZA [id number] [place] 00:00:00 00:00:00 VICK Seybol d 2022-07-31 2022-07-31 Outpatient MIRZAITEHRA [facility]OME [id number] [place] 00:00:00 00:00:00 DAVONTE HANSEN willie 2022-07-27 2022-07-27 Outpatient MERCEDEZ ATKINSON [id number] [place] 00:00:00 00:00:00 DONYALE Seybol d 2022-07-23 2022-07-23 Outpatient MERCEDEZ DSOUZA [id number] [place] 00:00:00 00:00:00 VICK Seybol d 2022-07-23 2022-07-23 Outpatient CURTISMERCEDEZ [id number] [place] 00:00:00 00:00:00 YARY Seybo ld 2022-07-21 2022-07-21 Outpatient MERCEDEZ CARMEN [id number] [place] 00:00:00 00:00:00 ONI Seybol d 2022-07-17 2022-07-17 Outpatient MERCEDEZ LYNN [id number] [place] 00:00:00 00:00:00 MONIQUE Seybol d 2022-07-16 2022-07-16 Outpatient MERCEDEZ DSOUZA [id number] [place] 00:00:00 00:00:00 VICK Seybol d 2022-07-16 2022-07-16 Outpatient MERCEDEZ LYNN [id number] [place] 00:00:00 00:00:00 MONIQUE Seybol d 2022-07-07 2022-07-07 Outpatient LAB90 MERCEDEZ NEWSOME [id number] [place] 17:25:00 17:25:00 Seybol d 2022-07-07 2022-07-07 Outpatient MERCEDEZ CARMEN [id number] [place] 15:45:00 15:45:00 ONI Seybol d 2022-07-05 2022-07-05 Outpatient MERCEDEZ DSOUZA [id number] [place] 00:00:00 00:00:00 VICK Seybol d 2022-07-03 2022-07-03 Outpatient MERCEDEZ ATKINSON [id number] [place] 00:00:00 00:00:00 DONYALE Seybol d 2022-06-11 2022-06-11 Outpatient BA NEWSOME [id number] [place] 00:00:00 00:00:00 MD PRADEEP Seybol d 2022-06-10 2022-06-10 Outpatient MERCEDEZ LYNN [id number] [place] 00:00:00 00:00:00 MONIQUE Seybol d 2022-06-10 2022-06-10 Outpatient MERCEDEZ ATKINSON [id number] [place] 00:00:00 00:00:00 DONYALE Seybol d 2022-06-10 2022-06-10 Outpatient MERCEDEZ CURTIS [id number] [place] 00:00:00 00:00:00 YARY Seybo ld 2022-06-10 2022-06-10 Outpatient MERCEDEZ DSOUAZ [id number] [place] 00:00:00 00:00:00 VICK Seybol d 2022-06-05 2022-06-05 Outpatient MERCEDEZ LYNN [id number] [place] 00:00:00 00:00:00 MONIQUE Seybol d 2022-06-05 2022-06-05 Outpatient MERCEDEZ ATKINSON [id number] [place] 00:00:00 00:00:00 DONYALE Seybol d 2022-05-28 2022-05-28 Outpatient MERCEDEZ CURTIS [id number] [place] 00:00:00 00:00:00 YARY Seybo ld 2022-05-28 2022-05-28 Outpatient MERCEDEZ DSOUZA [id number] [place] 00:00:00 00:00:00 VICK Seybol d 2022-05-28 2022-05-28 Outpatient MERCEDEZ ATKINSON [id number] [place] 00:00:00 00:00:00 DONYALE Seybol d 2022-05-16 2022-05-16 Outpatient MERCEDEZ DSOUZA [id number] [place] 15:00:00 15:00:00 VICK Seybol d 2022-05-15 2022-05-15 Outpatient BA NEWSOME [id number] [place] 00:00:00 00:00:00 MD PRADEEP Seybol d 2022-05-13 2022-05-13 Outpatient MERCEDEZ LYNN [id number] [place] 00:00:00 00:00:00 MONIQUE Seybol d 2022-05-13 2022-05-13 Outpatient MERCEDEZ ATKINSON [id number] [place] 00:00:00 00:00:00 DONYALE Seybol d 2022-05-08 2022-05-08 Outpatient MIRZAITEHRA [facility] NEWSOME [id number] [place] 15:00:00 15:00:00 DAVONTE HANSEN 2022-05-08 2022-05-08 Outpatient MERCEDEZ LYNN [id number] [place] 00:00:00 00:00:00 MONIQUE Seybol d 2022-05-05 2022-05-05 Outpatient MERCEDEZ DSOUZA [id number] [place] 00:00:00 00:00:00 VICK Seybol d 2022-05-05 2022-05-05 Outpatient MERCEDEZ DAVIS [id number] [place] 00:00:00 00:00:00 WESAM Seybol d 2022-05-05 2022-05-05 Outpatient JAROD COTTON [id number] [place] 00:00:00 00:00:00 Seybol d 2022-05-05 2022-05-05 Outpatient JAROD COTTON [id number] [place] 00:00:00 00:00:00 Seybol d 2022-05-05 2022-05-05 Outpatient MERCEDEZ DSOUZA [id number] [place] 00:00:00 00:00:00 VICK Seybol d 2022-05-02 2022-05-02 Outpatient MERCEDEZ DSOUZA [id number] [place] 16:30:00 16:30:00 VICK Seybol d 2022-04-15 2022-04-15 Outpatient AB NEWSOME [id number] [place] 00:00:00 00:00:00 MD PRADEEP Seybol d 2022-04-14 2022-04-14 Outpatient SHANEMERCEDEZ [id number] [place] 00:00:00 00:00:00 MONIQUE Seybol d 2022-04-14 2022-04-14 Outpatient MERCEDEZ CURTIS [id number] [place] 00:00:00 00:00:00 YARY Seybo ld 2022-04-02 2022-04-02 Outpatient JAROD COTTON [id number] [place] 00:00:00 00:00:00 Seybol d 2022-04-02 2022-04-02 Outpatient MIRZAPHILIP NEWSOME [id number] [place] 00:00:00 00:00:00 DAVONTE HANSEN George tapia 2022-04-02 2022-04-02 Outpatient MERCEDEZ DSOUZA [id number] [place] 00:00:00 00:00:00 VICK Seybol d 2022-03-17 2022-03-17 Outpatient GLENNYZAPHILIP NEWSOME [id number] [place] 00:00:00 00:00:00 MARIUM HANSENKvng tapia 2022-03-17 2022-03-17 Outpatient MERCEDEZ DSOUZA [id number] [place] 00:00:00 00:00:00 VICK Seybol d 2022-03-17 2022-03-17 Outpatient MERCEDEZ ATKINSON [id number] [place] 00:00:00 00:00:00 DONYALE Seybol d 2022-03-15 2022-03-15 Outpatient MERCEDEZ ATKINSON [id number] [place] 00:00:00 00:00:00 DONYALE Seybol d 2022-03-15 2022-03-15 Outpatient MIRZAITELEXY NEWSOME [id number] [place] 00:00:00 00:00:00 DAVONTE HANSEN George bold 2022-02-05 2022-02-05 Outpatient JAROD COTTON [id number] [place] 14:00:00 14:00:00 Seybol d 2022-01-31 2022-01-31 Outpatient ONWUCHURUBA MERCEDEZ MERCEDEZ [id number] [place] 16:00:00 16:00:00 SHO bold 2022-01-31 2022-01-31 Outpatient LIANNA [facility] NEWSOME [id number] [place] 15:30:00 15:30:00 VICK Seybol d 2022-01-23 2022-01-23 Outpatient ZAIDAURORAKishore MER[facility]EZ NEWSOME [id number] [place] 00:00:00 00:00:00 DAVONTE HANSEN bold 2022-01-22 2022-01-22 Outpatient MERCEDEZ NEWSOME [id number] [place] 15:30:00 15:30:00 Seybol d 2022-01-22 2022-01-22 Outpatient MERCEDEZ NEWSOME [id number] [place] 14:30:00 14:30:00 Seybol d 2022-01-22 2022-01-22 Outpatient MERCEDEZ NEWSOME [id number] [place] 14:00:00 14:00:00 Seybol d 2022-01-22 2022-01-22 Outpatient MERCEDEZ NEWSOME [id number] [place] 13:00:00 13:00:00 Seybol d 2022-01-22 2022-01-22 Outpatient GLENNYDEVAURORAKishore [facility]EZ NEWSOME [id number] [place] 00:00:00 00:00:00 DAVONTE HANSEN bold 2022-01-01 2022-01-01 Outpatient MERCEDEZ VALLEJO [id number] [place] 10:40:00 10:40:00 OLADAPO Seybol d 2022-01-01 2022-01-01 Outpatient MERCEDEZ NEWSOME [id number] [place] 10:35:00 10:35:00 Seybol d 2021-12-31 2021-12-31 Outpatient MERCEDEZ NEWSOME [id number] [place] 15:15:00 15:15:00 Seybol d 2021-12-16 2021-12-16 Outpatient MERCEDEZ VALLEJO [id number] [place] 13:50:00 13:50:00 OLADAPO Seybol d 2021-12-13 2021-12-13 Outpatient MERCEDEZ VALLEJO [id number] [place] 00:00:00 00:00:00 OLADAPO Seybol d 2021-12-06 2021-12-06 Outpatient MERCEDEZ DSOUZA [id number] [place] 00:00:00 00:00:00 VICK Seybol d 2021-12-04 2021-12-04 Outpatient MERCEDEZ NEWSOME [id number] [place] 10:40:00 10:40:00 Seybol d 2021-12-04 2021-12-04 Office Yury Barbararony BEAUCHAMP [id number] [place] 09:30:00 10:00:00 Visit MEDICAL 350.1.13.13 Seybold DIAGNOSTI 1.2.7.2.686 [facility] [id number] 2021-11-25 2021-11-25 Outpatient MERCEDEZ DSOUZA [id number] [place] 16:00:00 16:00:00 VICK Seybol d 2021-11-20 2021-11-20 Telemedici YURY Dsouza [id number] [place] 15:45:00 15:56:33 [facility] 350.1.13.13 Se ybold 1.2.7.2.686 [id number] 2021-11-13 2021-11-13 Outpatient MERCEDEZ SCHWARZ [id number] [place] 00:00:00 00:00:00 LACHELLE Seybol d 2021-11-05 2021-11-05 Outpatient MERCEDEZ NEWSOME [id number] [place] 15:20:00 15:20:00 Seybol d 2021-11-05 2021-11-05 Outpatient MERCEDEZ NEWSOME [id number] [place] 14:40:00 14:40:00 Seybol d 2021-10-21 2021-10-21 Outpatient MERCEDEZ NEWSOME [id number] [place] 16:00:00 16:00:00 Seybol d 2021-10-21 2021-10-21 Outpatient MERCEDEZ NEWSOME [id number] [place] 15:00:00 15:00:00 Seybol d 2021-10-08 2021-10-08 Outpatient TRED45 MERCEDEZ NEWSOME [id number] [place] 15:45:00 15:45:00 Seybol d 2021-10-08 2021-10-08 Outpatient ZAIDITELEXY [facility]EZ NEWSOME [id number] [place] 15:30:00 15:30:00 NEDAVONTE 2021-09-13 2021-09-13 Outpatient MERCEDEZ SCHWARZ [id number] [place] 15:30:00 15:30:00 LACHELLE Seybol d 2021-09-02 2021-09-02 Outpatient MERCEDEZ NEWSOME [id number] [place] 14:30:00 14:30:00 Seybol d 2021-09-02 2021-09-02 Office LESIA Schwarz [id number] [place] 14:00:00 14:20:00 Visit Lachelle Unger MEDICAL & 350.1.13.13 Seybold DIAGNOSTI 1.2.7.2.686 [facility] [place] [id number] 2021-08-04 2021-08-04 Telemedici CHRISTEL BISHOP [id number] [place] 16:15:00 16:15:00 ne [facility] 350.1.13.13 Se ybold 1.2.7.2.686 [id number] 2021-08-04 2021-08-04 Outpatient MERCEDEZ GOLDSTEIN [id number] [place] 13:55:00 13:55:00 EVISIT Seybol d 2021-07-26 2021-07-26 Outpatient MERCEDEZ DSOUZA [id number] [place] 15:00:00 15:00:00 VICK Seybol d 2021-07-26 2021-07-26 Outpatient MERCEDEZ DSOUZA [id number] [place] 00:00:00 00:00:00 VICK Seybol d 2021-06-15 2021-06-15 Outpatient MERCEDEZ ATKINSON [id number] [place] 00:00:00 00:00:00 DONYALE Seybol d 2021-06-12 2021-06-12 Outpatient MERCEDEZ LYNN [id number] [place] 00:00:00 00:00:00 MONIQUE Seybol d 2021-06-11 2021-06-11 Outpatient MERCEDEZ LYNN [id number] [place] 00:00:00 00:00:00 MONIQUE Seybol d 2021-06-10 2021-06-10 Outpatient NOAHMERCEDEZ POON [id number] [place] 15:00:00 15:00:00 FAYYAZ Seybol d 2021-06-09 2021-06-09 Outpatient MERCEDEZ CISNEROS [id number] [place] 00:00:00 00:00:00 ROCKY Seybol d 2021-06-03 2021-06-03 Outpatient MERCEDEZ CURTIS [id number] [place] 00:00:00 00:00:00 YARY Seybo ld 2021-06-03 2021-06-03 Outpatient MERCEDEZ DSOUZA [id number] [place] 00:00:00 00:00:00 VICK Seybol d 2021-06-03 2021-06-03 Outpatient MERCEDEZ DSOUZA [id number] [place] 00:00:00 00:00:00 VICK Seybol d 2021-06-03 2021-06-03 Outpatient MERCEDEZ LYNN [id number] [place] 00:00:00 00:00:00 MONIQUE Seybol d 2021-05-22 2021-05-22 Outpatient MIRZAITEHRA MERCEDEZ NEWSOME [id number] [place] 00:00:00 00:00:00 DAVONTE HANSEN 2021-05-21 2021-05-21 Outpatient DQA23-HEQ MERCEDEZ NEWSOME [id number] [place] 08:50:00 08:50:00 Seybol d 2021-05-21 2021-05-21 Outpatient TESTINGMERCEDEZ [id number] [place] 08:30:00 08:30:00 [facility] 2021-05-21 2021-05-21 Outpatient MERCEDEZ LYNN [id number] [place] 00:00:00 00:00:00 MONIQUE Seybol d 2021-05-21 2021-05-21 Outpatient SHANE, MERCEDEZ NEWSOME [id number] [place] 00:00:00 00:00:00 MONIQUE Seybol d 2021-05-21 2021-05-21 Outpatient SHANE, MERCEDEZ NEWSOME [id number] [place] 00:00:00 00:00:00 MONIQUE Seybol d 2021-05-20 2021-05-20 Outpatient MIRZAITEA MERCEDEZ NEWSOME [id number] [place] 00:00:00 00:00:00 JADE, DAVONTE Topete bold 2021-05-19 2021-05-19 Outpatient AHMERCEDEZ POON [id number] [place] 00:00:00 00:00:00 FAYYAZ Seybol d 2021-05-17 2021-05-17 Outpatient MERCEDEZ LYNN [id number] [place] 15:30:00 15:30:00 MONIQUE Seybol d 2021-05-17 2021-05-17 Outpatient MERCEDEZ LYNN [id number] [place] 09:30:00 09:30:00 MONIQUE Seybol d 2021-05-16 2021-05-16 Outpatient SHANE, MERCEDEZ NEWSOME [id number] [place] 00:00:00 00:00:00 MONIQUE Seybol d 2021-05-16 2021-05-16 Outpatient MERCEDEZ CUENCA [id number] [place] 00:00:00 00:00:00 FAYYAZ Seybol d 2021-05-11 2021-05-11 Outpatient MERCEDEZ CUENCA [id number] [place] 00:00:00 00:00:00 FAYYAZ Seybol d 2021-05-04 2021-05-04 Outpatient MERCEDEZ DSOUZA [id number] [place] 00:00:00 00:00:00 VICK Seybol d 2021-04-23 2021-04-23 Outpatient GLENNYZAPHILIP NEWSOME [id number] [place] 15:30:00 15:30:00 JADE, JAYNECLAIR Topete bold 2021-04-22 2021-04-22 Outpatient MERCEDEZ NEWSOME [id number] [place] 00:00:00 00:00:00 Seybol d 2021-04-19 2021-04-19 Outpatient SHANE MERCEDEZ NEWSOME [id number] [place] 00:00:00 00:00:00 MONIQUE Seybol d 2021-04-19 2021-04-19 Outpatient MERCEDEZ LYNN MERCEDEZ [id number] [place] 00:00:00 00:00:00 MONIQUE Seybol d 2021-04-18 2021-04-18 Outpatient MERCEDEZ NEWSOME [id number] [place] 15:40:00 15:40:00 Seybol d 2021-04-18 2021-04-18 Outpatient MERCEDEZ NEWSOME [id number] [place] 15:20:00 15:20:00 Seybol d 2021-04-17 2021-04-17 Outpatient MIRZAITEHRA MERCEDEZ NEWSOME [id number] [place] 15:30:00 15:30:00 DAVONTE HANSEN shalini willie 2021-04-16 2021-04-16 Outpatient MERCEDEZ LYNN [id number] [place] 00:00:00 00:00:00 MONIQUE Seybol d 2021-04-15 2021-04-15 Outpatient MIRZAITEHRA MERCEDEZ NEWSOEM [id number] [place] 00:00:00 00:00:00 DAVONTE HANSEN willie 2021-04-12 2021-04-12 Outpatient SHANE MERCEDEZ NEWSOME [id number] [place] 16:45:00 16:45:00 MONIQUE Seybol d 2021-04-12 2021-04-12 Outpatient MERCEDEZ LYNN [id number] [place] 00:00:00 00:00:00 MONIQUE Seybol d 2021-04-12 2021-04-12 Outpatient MERCEDEZ LYNN [id number] [place] 00:00:00 00:00:00 MONIQUE Seybol d 2021-04-11 2021-04-11 Outpatient MERCEDEZ CUENCA [id number] [place] 00:00:00 00:00:00 FAYYAZ Seybol d 2021-04-09 2021-04-09 Outpatient MERCEDEZ CISNEROS [id number] [place] 00:00:00 00:00:00 ROCKY Seybol d 2021-04-08 2021-04-08 Office LESIA Cuenca [id number] [place] 15:30:00 16:00:00 Visit roman HERNANDEZ [facility].1.13.13 Seybold DIAGNOSTI 1.2.7.2.686 [place] [id number] 2021-04-03 2021-04-03 Outpatient MERCEDEZ LYNN [id number] [place] 00:00:00 00:00:00 MONIQUE Seybol d 2021-04-03 2021-04-03 Outpatient MERCEDEZ LYNN [id number] [place] 00:00:00 00:00:00 MONIQUE Seybol d 2021-04-02 2021-04-02 Outpatient MERCEDEZ CISNEROS [id number] [place] 00:00:00 00:00:00 ROCKY Seybol d 2021-03-27 2021-03-27 Outpatient MERCEDEZ CUENCA [id number] [place] 00:00:00 00:00:00 FAYYAZ Seybol d 2021-03-26 2021-03-26 Outpatient MERCEDEZ DSOUZA [id number] [place] 00:00:00 00:00:00 VICK Seybol d 2021-03-26 2021-03-26 Outpatient MERCEDEZ CUENCA [id number] [place] 00:00:00 00:00:00 FAYYAZ Seybol d 2021-03-20 2021-03-20 Outpatient MERCEDEZ DSOUZA [id number] [place] 00:00:00 00:00:00 VICK Seybol d 2021-03-15 2021-03-15 Outpatient MERCEDEZ CURTIS [id number] [place] 00:00:00 00:00:00 YARY Seybo ld 2021-03-15 2021-03-15 Outpatient MERCEDEZ ATKINSON [id number] [place] 00:00:00 00:00:00 DONYALE Seybol d 2021-03-14 2021-03-14 Outpatient MERCEDEZ VIERA [id number] [place] 14:45:00 14:45:00 KEMAL Seybo ld 2021-03-11 2021-03-11 Outpatient MERCEDEZ DSOUZA [id number] [place] 15:30:00 15:30:00 VICK Seybol d 2021-03-11 2021-03-11 Outpatient SCHWARZMERCEDEZ [id number] [place] 15:00:00 15:00:00 LACHELLE Seybol d 2021-03-10 2021-03-10 Outpatient MERCEDEZ CISNEROS [id number] [place] 00:00:00 00:00:00 ROCKY Seybol d 2021-03-07 2021-03-07 Outpatient MERCEDEZ LYNN [id number] [place] 00:00:00 00:00:00 MONIQUE Seybol d 2021-03-05 2021-03-05 Outpatient MERCEDEZ CISNEROS [id number] [place] 00:00:00 00:00:00 ROCKY Seybol d 2021-02-20 2021-02-20 Outpatient MERCEDEZ DSOUZA [id number] [place] 00:00:00 00:00:00 VICK Seybol d 2021-02-20 2021-02-20 Outpatient GLENNYZAPHILIP NEWSOME [id number] [place] 00:00:00 00:00:00 DAVONTE HANSEN willie 2021 2021 Outpatient MERCEDEZ DSOUZA [id number] [place] 00:00:00 00:00:00 VICK Seybol d 2021-02-15 2021-02-15 Outpatient MIRZAITEHRA MERCEDEZ NEWSOME [id number] [place] 00:00:00 00:00:00 DAVONTE HANSEN bold 2021-02-11 2021-02-11 Office LESIA Lynn [id number] [place] 14:43:26 15:13:26 Visit Monique HERNANDEZ & 350.1.13.13 Seybold DIAGNOSTI 1.2.7.2.686 [facility] [id number] 2021-02-08 2021-02-08 Outpatient MERCEDEZ LYNN [id number] [place] 14:00:00 14:00:00 MONIQUE Seybol d 2021-02-08 2021-02-08 Outpatient MERCEDEZ LYNN [id number] [place] 13:30:00 13:30:00 MONIQUE Seybol d 2021-02-08 2021-02-08 Outpatient MERCEDEZ SCHWARZ [id number] [place] 11:40:00 11:40:00 LACHELLE Seybol d 2021-02-04 2021-02-04 Outpatient LAB45 MERCEDEZ NEWSOME [id number] [place] 17:00:00 17:00:00 Seybol d 2021-01-23 2021-01-23 Outpatient MERCEDEZ DSOUZA [id number] [place] 00:00:00 00:00:00 VICK Seybol d 2021-01-08 2021-01-08 Outpatient MERCEDEZ SCHWARZ [id number] [place] 00:00:00 00:00:00 LACHELLE Seybol d 2021-01-06 2021-01-06 Outpatient MERCEDEZ CISNEROS [id number] [place] 00:00:00 00:00:00 ROCKY Seybol d 2021-01-03 2021-01-03 Outpatient MERCEDEZ CISNEROS [id number] [place] 00:00:00 00:00:00 ROCKY Seybol d 2020-12-28 2020-12-28 Outpatient MERCEDEZ NEWSOME [id number] [place] 15:15:00 15:15:00 Seybol d 2020-12-28 2020-12-28 Office LESIA Schwarz [id number] [place] 14:09:20 14:29:20 Visit Lachelle Unger MEDICAL & 350.1.13.13 Seybold DIAGNOSTI 1.2.7.2.686 [facility] [id number] 2020-12-11 2020-12-11 Outpatient MERCEDEZ CISNEROS [id number] [place] 00:00:00 00:00:00 ROCKY Seybol d 2020-12-10 2020-12-10 Outpatient MERCEDEZ NEWSOME [id number] [place] 15:00:00 15:00:00 Seybol d 2020-12-10 2020-12-10 Outpatient MERCEDEZ MERCEDEZ [id number] [place] 13:00:00 13:00:00 Seybol d 2020-11-05 2020-11-05 Outpatient MERCEDEZ DSOUZA MERCEDEZ [id number] [place] 15:30:00 15:30:00 VICK Seybol d 2020-10-11 2020-10-11 Outpatient MERCEDEZ CISNEROS MERCEDEZ [id number] [place] 15:45:00 15:45:00 ROCKY Seybol d 2020-10-10 2020-10-10 Outpatient MIRZAITEHRA MERCEDEZ MERCEDEZ [id number] [place] 15:30:00 15:30:00 JADE MARIUMKvng tapia 2013-02-02 2013-02-05 Outpatient E MAGI, [facility] TELE [id number] [place] 03:02:00 19:03:00 [facility] Results Test Description Test Time Test Comments Results Result Comments Source URINALYSIS W/ MICROSCOPIC 2017-05-28 02:42:00 Test Item Value Reference Range Interpretation Comme nts COLOR (BEAKER) (test code = 470) Yellow CLARITY (BEAKER) (test code = 469) Clear SPECIFIC GRAVITY UA (BEAKER) (test code = 468) 1.010 1.001-1 .035 PH UA (BEAKER) (test code = 467) 7.5 5.0-8.0 PROTEIN UA (BEAKER) (test code = 464) Negative Negative GLUCOSE UA (BEAKER) (test code = 365) Negative Negative KETONES UA (BEAKER) (test code = 371) Negative Negative BILIRUBIN UA (BEAKER) (test code = 462) Negative Negative BLOOD UA (BEAKER) (test code = 461) Negative Negative NITRITE UA (BEAKER) (test code = 465) Negative Negative LEUKOCYTE ESTERASE UA (BEAKER) (test code = 466) Negative Negat nirav UROBILINOGEN UA (BEAKER) (test code = 463) 0.2 mg/dL 0.2-1.0 BACTERIA (BEAKER) (test code = 517) None Seen RBC UA-MANUAL (BEAKER) (test code = 1659) None Seen /HPF WBC UA-MANUAL (BEAKER) (test code = 1661) <5 /HPF SQUAMOUS EPITHELIAL MANUAL (BEAKER) (test code = 1663) None Seen /H PF SOURCE(BEAKER) (test code = 2795) RAD, ABDOMEN/KUB 1 VIEW [id number] 02:40:00Reason for exam:->EMESISReason for exam:->ABDOMINAL PAINFINAL REPORT Exam: Abdomen 2 views Comparison: None. Reason for exam: Abdominalpain and emesis. Findings: Two views of the abdomen were obtained. There is a moderate to large amount of retained stool in the colon. There is no bowel obstruction. There is no free subdiaphragmatic air. There are surgical clips in the right upper quadrant and left pelvis. The visualized lung bases are clear. Impression: Moderate to large amount of retained stool. No bowel obstruction. Signed: Claudia Lawrence MDReport Verified Date/Time: 05/28/2017 02:40:49 Reading Location: [address] TransitionalReading Room COMPREHENSIVE METABOLIC [id number] 01:47:00 Test Item Value Reference Range Interpretation Comments TOTAL PROTEIN 7.0 gm/dL 6.0-8.5 (BEAKER) (test code = 770) ALBUMIN (BEAKER) 3.9 g/dL 3.5-5.0 (test code = 1145) ALKALINE PHOSPHATASE 87 U/L 30-115 (BEAKER) (test code = 346) BILIRUBIN TOTAL 0.3 mg/dL 0.1-1.2 (BEAKER) (test code = 377) SODIUM (BEAKER) (test 140 meq/L 135-148 code = 381) POTASSIUM (BEAKER) 3.4 meq/L 3.6-5.5 L (test code = 379) CHLORIDE (BEAKER) 105 meq/L 98-106 (test code = 382) CO2 (BEAKER) (test 25 meq/L 20-29 code = 355) BLOOD UREA NITROGEN 7 mg/dL 10-26 L (BEAKER) (test code = 354) CREATININE (BEAKER) 0.80 mg/dL 0.50-1.20 (test code = 358) GLUCOSE RANDOM 129 mg/dL 70-110 H (BEAKER) (test code = 652) CALCIUM (BEAKER) 9.2 mg/dL 8.5-10.5 (test code = 697) AST (SGOT) (BEAKER) 11 U/L 5-40 (test code = 353) ALT (SGPT) (BEAKER) 12 U/L 5-50 (test code = 347) EGFR (BEAKER) (test 71 mL/min/1.73 ESTIMA SHARMILA GFR IS code = 1092) sq m NOT ACCURATE CREATININE CLEARANCE IN PREDICTING GLOMERULAR FILTRATION RATE . ESTIMATED GFR I S NOT APPLICABLE FOR DIALYSIS PATIEN TS. [id number] 01:45:00 Test Item Value Reference Range Interpretation Comments LIPASE (BEAKER) (test code = 749) 17 U/L 6-51 [id number] 01:41:00 Test Item Value Reference Range Interpretation Comments PHOSPHORUS (BEAKER) (test code = 2.3 mg/dL 2.5-4.5 L 604) [id number] 01:36:00 Test Item Value Reference Range Interpretation Comments MAGNESIUM (BEAKER) (test code = 2.0 mg/dL 1.5-3.0 627) [id number] 01:36:00 Test Item Value Reference Range Interpretation Comments AMYLASE (BEAKER) (test code = 349) 52 U/L 30-110 CBC W/PLT COUNT & AUTO [id number] 01:25:00 Test Item Value Reference Range Interpretation Comments WHITE BLOOD CELL COUNT (BEAKER) 5.2 K/ L 4.0-10.0 (test code = 775) RED BLOOD CELL COUNT (BEAKER) 3.96 M/ L 4.00-5.00 L (test code = 761) HEMOGLOBIN (BEAKER) (test code = 11.4 GM/DL 12.0-15.0 L 410) HEMATOCRIT (BEAKER) (test code = 33.9 % 36.0-45.0 L 411) MEAN CORPUSCULAR VOLUME (BEAKER) 85.7 fL 82.0-99.0 (test code = 753) MEAN CORPUSCULAR HEMOGLOBIN 28.9 pg 27.0-33.0 (BEAKER) (test code = 751) MEAN CORPUSCULAR HEMOGLOBIN CONC 33.7 GM/DL 32.0-36.0 (BEAKER) (test code = 752) RED CELL DISTRIBUTION WIDTH 13.0 % 10.3-14.2 (BEAKER) (test code = 412) PLATELET COUNT (BEAKER) (test 323 K/CU MM 150-430 code = 756) MEAN PLATELET VOLUME (BEAKER) 7.3 fL 6.5-10.5 (test code = 754) NUCLEATED RED BLOOD CELLS 0 /100 WBC 0-0 (BEAKER) (test code = 413) NEUTROPHILS RELATIVE PERCENT 61 % (BEAKER) (test code = 429) LYMPHOCYTES RELATIVE PERCENT 29 % (BEAKER) (test code = 430) MONOCYTES RELATIVE PERCENT 7 % (BEAKER) (test code = 431) EOSINOPHILS RELATIVE PERCENT 2 % (BEAKER) (test code = 432) BASOPHILS RELATIVE PERCENT 1 % (BEAKER) (test code = 437) NEUTROPHILS ABSOLUTE COUNT 3.20 K/ L 1.80-8.00 (BEAKER) (test code = 670) LYMPHOCYTES ABSOLUTE COUNT 1.50 K/ L 1.48-4.50 (BEAKER) (test code = 414) MONOCYTES ABSOLUTE COUNT (BEAKER) 0.30 K/ L 0.00-1.30 (test code = 415) EOSINOPHILS ABSOLUTE COUNT 0.10 K/ L 0.00-0.50 (BEAKER) (test code = 416) BASOPHILS ABSOLUTE COUNT (BEAKER) 0.00 K/ L 0.00-0.20 (test code = 417)
[2023-01-04 15:58] LABS: Specific Gravity 1.008 (1.005-1.030); Urine Bacteria <20 /HPF (<20); Urine Bilirubin NEGATIVE (Negative); Urine Blood 3+ (Negative); Urine Clarity Extremely Turbid (Clear); Urine Color Dark-Yellow (Yellow); Urine Glucose NEGATIVE (Negative); Urine Protein TRACE (Negative); Urine RBC >50 /HPF (None Seen); Urine Urobilinogen Normal (Normal); Urine WBC Clump Many /HPF (None Seen); Urine pH 5.5 (5.0-7.0)
--- NOTE | 2023-01-04 17:09 | EDPHYS ---
Physician Documentation [facility] Name: Kayla Tamayo Age: 77 yrs Sex: Female : 1945 Arrival Date: 01/04/2023 Time: 14:50 Bed 12 Private MD: Carl Berg ED Physician Julio Cesar Kelly HPI: 01/04 17:42 This 77 yrs old Female presents to ER via Ambulatory with complaints of Urinary Problem.kb 17:42 The patient presents with urinary symptoms, dysuria, frequency, urgency. Onset: The kb symptoms/episode began/occurred 1 week(s) ago. Modifying factors: The symptoms are alleviated by nothing, the symptoms are aggravated by urinating. Associated signs and symptoms: Pertinent positives: dysuria, urinary frequency, Pertinent negatives: fever. Severity of symptoms: At their worst the symptoms were moderate, in the emergency department the symptoms are unchanged. The patient has not experienced similar symptoms in the past. The patient has not recently seen a physician. Pt reports urinary frequency, urgency, dysuria for one week. States she started taking AZO but is still having symptoms. Historical: - Allergies: 15:01 Morphine; hb 15:01 PENICILLINS; hb 15:01 Codeine; hb 15:01 Salogens; hb 15:01 Sulfa (Sulfonamide Antibiotics); hb 15:06 leflunomide; hb 15:06 oxybutynin; hb - Home Meds: 15:01 Acyclovir Oral [Active]; hb 15:08 alprazolam 0.25 mg Oral tablet 2 times per day [Active]; amlodipine 2.5 mg tablet daily hb [Active]; aspirin 81 mg Oral tablet,chewable [Active]; atorvastatin 40 mg oral tablet daily [Active]; citalopram 20 mg tablet daily [Active]; ezetimibe 10 mg oral tablet daily [Active]; fluticasone propionate 50 mcg/actuation intranasal spray, suspension daily [Active]; hydrocodone-acetaminophen 10-325 mg Oral tablet every 8 hours [Active]; ibuprofen 200 mg Oral capsule twice a day [Active]; levothyroxine 88 mcg capsule [Active]; lisinopril 10 mg Oral tablet daily [Active]; pantoprazole 40 mg oral tablet, delayed release (enteric coated) daily [Active]; prednisone 2.5 mg Oral tablet daily [Active]; pregabalin 25 mg Oral capsule 2 times per day [Active]; ropinirole 2 mg oral tablet 2 tabs nightly [Active]; tizanidine 4 mg oral tablet as needed [Active]; tramadol 50 mg Oral tablet 100 mg 2 times per day [Active]; trazodone 100 mg Oral tablet nightly [Active]; - Immunization history:: Adult Immunizations up to date. - Social history:: Smoking status: Patient denies any tobacco usage or history of. ROS: 17:41 Constitutional: Negative for fever, chills, and weight loss, kb 17:41 : Positive for urinary symptoms, urinary frequency, burning with urination, urgency, 17:41 All other systems are negative, Exam: 17:41 Constitutional: This is a well developed, well nourished patient who is awake, alert, kb and in no acute distress. Head/Face: Normocephalic, atraumatic. ENT: Moist Mucous membranes Cardiovascular: Regular rate Respiratory: Respirations even and unlabored. No increased work of breathing. Talking in full sentences Abdomen/GI: Soft, non-tender. No distention Skin: Warm, dry with normal turgor. Normal color. MS/ Extremity: Pulses equal, no cyanosis. Neurovascular intact. Full, normal range of motion. Neuro: Awake and alert, GCS 15, oriented to person, place, time, and situation. Moves all extremities. Normal gait. Vital Signs: 14:59 BP 107 / 55; Pulse 62; Resp 16; Temp 97.9(TE); Pulse Ox 95% on R/A; Weight 58.97 kg; hb Height 5 ft. 2 in. ; Pain 10/10; 14:59 Body Mass Index 23.78 (58.97 kg, 157.48 cm) hb 14:59 Pain Scale: Adult hb MDM: 15:03 Patient medically screened. kb 17:41 Differential diagnosis: uti, pyelonephritis, kidney stone. Data reviewed: vital signs, kb nurses notes. Test considered but Not performed: Labs: cbc, basic considered, but pt is afebrile, nontoxic in appearance and tolerating po intake. Will treat with oral antibiotics. CT: CT considered, but pt has no flank pain. Counseling: I had a detailed discussion with the patient and/or guardian regarding the historical points, exam findings, and any diagnostic results supporting the discharge/admit diagnosis, lab results, the need for outpatient follow up, a family practitioner, to return to the emergency department if symptoms worsen or persist or if there are any questions or concerns that arise at home. 01/04 15:03 Order name: Urinalysis w/ reflexes; Complete Time: 16:29 kb 01/04 16:31 Order name: Urine Culture EDMS Administered Medications: 17:32 Drug: Ciprofloxacin PO 500 mg PO once Route: PO; ll1 17:34 Follow up: Response: No adverse reaction ll1 17:32 Drug: Acetaminophen PO 1000 mg PO once Route: PO; ll1 17:34 Follow up: Response: No adverse reaction ll1 Disposition: 18:09 Co-signature as Attending Physician, Julio Cesar Kelly MD I reviewed the patient's care rn provided by the Advanced Practice Provider and agree with the diagnosis and treatment plan. Disposition Summary: 01/04/23 17:08 Discharge Ordered Notes: Location: Home kb Condition: Stable kb Diagnosis - UTI/ Urinary tract infection, site not specified kb Followup: kb - With: Emergency Department - When: As needed - Reason: Worsening of condition Followup: kb - With: Private Physician - When: 2 - 3 days - Reason: Recheck today's complaints, Continuance of care, Re-evaluation by your physician Discharge Instructions: - Discharge Summary Sheet kb - Urinary Tract Infection, Adult, [id number] kb Forms: - Medication Reconciliation Form kb - Thank You Letter kb - Antibiotic Education kb - Prescription Opioid Use kb - Patient Portal Instructions kb - Leadership Thank You Letter kb Prescriptions: - Cipro 500 mg Oral Tablet - take 1 tablet ORAL route every 12 hours for 7 days; 14 tablet; Refills: 0, kb Product Selection Permitted Signatures: Dispatcher [employer] EDMS Roselyn Oswald, MATILDA HASSAN-Julio Cesar Latif MD MD rn Baxter, Heather, RN Chris Roche RN RN ll1
--- NOTE | 2023-01-04 17:09 | ER ---
Nurse's Notes [facility] Name: Kayla Tamayo Age: 77 yrs Sex: Female : 1945 Arrival Date: 01/04/2023 Time: 14:50 Bed 12 Private MD: Carl Berg Diagnosis: UTI/ Urinary tract infection, site not specified Presentation: 01/04 14:59 Chief complaint: Suprapubic pain and pain with urination x 10 days, dizziness x 3 days. hb Coronavirus screen: At this time, the client does not indicate any symptoms associated with coronavirus-19. Ebola Screen: No symptoms or risks identified at this time. Initial Sepsis Screen: Does the patient meet any 2 criteria? No. Patient's initial sepsis screen is negative. Does the patient have a suspected source of infection? No. Patient's initial sepsis screen is negative. Risk Assessment: Do you want to hurt yourself or someone else? Patient reports no desire to harm self or others. Onset of symptoms was December 27, 2022. 14:59 Method Of Arrival: Ambulatory hb 14:59 Acuity: ESTRELLA 3 hb Triage Assessment: 17:30 General: Appears in no apparent distress. Behavior is calm, cooperative, appropriate ll1 for age. Pain: Complains of pain in pelvis Quality of pain is described as aching. Neuro: Reports dizziness, headache. : Reports burning with urination. Historical: - Allergies: 15:01 Morphine; hb 15:01 PENICILLINS; hb 15:01 Codeine; hb 15:01 Salogens; hb 15:01 Sulfa (Sulfonamide Antibiotics); hb 15:06 leflunomide; hb 15:06 oxybutynin; hb - Home Meds: 15:01 Acyclovir Oral [Active]; hb 15:08 alprazolam 0.25 mg Oral tablet 2 times per day [Active]; amlodipine 2.5 mg tablet daily hb [Active]; aspirin 81 mg Oral tablet,chewable [Active]; atorvastatin 40 mg oral tablet daily [Active]; citalopram 20 mg tablet daily [Active]; ezetimibe 10 mg oral tablet daily [Active]; fluticasone propionate 50 mcg/actuation intranasal spray, suspension daily [Active]; hydrocodone-acetaminophen 10-325 mg Oral tablet every 8 hours [Active]; ibuprofen 200 mg Oral capsule twice a day [Active]; levothyroxine 88 mcg capsule [Active]; lisinopril 10 mg Oral tablet daily [Active]; pantoprazole 40 mg oral tablet, delayed release (enteric coated) daily [Active]; prednisone 2.5 mg Oral tablet daily [Active]; pregabalin 25 mg Oral capsule 2 times per day [Active]; ropinirole 2 mg oral tablet 2 tabs nightly [Active]; tizanidine 4 mg oral tablet as needed [Active]; tramadol 50 mg Oral tablet 100 mg 2 times per day [Active]; trazodone 100 mg Oral tablet nightly [Active]; - Immunization history:: Adult Immunizations up to date. - Social history:: Smoking status: Patient denies any tobacco usage or history of. Screenin:33 [facility] ED Fall Risk Assessment (Adult) Score/Fall Risk Level 0 - 2 = Low Risk ll1 Oriented to surroundings, Maintained a safe environment, Educated pt \T\ family on fall prevention, incl call for assistance when getting out of bed, Hourly rounding (assess needs \T\ fall precautionary measures) done. Abuse screen: Denies threats or abuse. Nutritional screening: No deficits noted. Tuberculosis screening: No symptoms or risk factors identified. Assessment: 17:32 Reassessment: No changes from previously documented assessment. Patient and/or family ll1 updated on plan of care and expected duration. Pain level reassessed. Patient is alert, oriented x 3, equal unlabored respirations, skin warm/dry/pink. Vital Signs: 14:59 BP 107 / 55; Pulse 62; Resp 16; Temp 97.9(TE); Pulse Ox 95% on R/A; Weight 58.97 kg; hb Height 5 ft. 2 in. ; Pain 10/10; 14:59 Body Mass Index 23.78 (58.97 kg, 157.48 cm) hb 14:59 Pain Scale: Adult hb ED Course: 14:55 Patient arrived in ED. mr 14:55 Carl Berg DO is Private Physician. mr 15:01 Triage completed. hb 15:02 [facility] kb 15:03 Julio Cesar Kelly MD is Attending Physician. kb 15:06 Arm band placed on. hb 15:20 Urinalysis w/ reflexes Sent. hb 17:34 Patient has correct armband on for positive identification. Bed in low position. Call ll1 light in reach. Provided Education on: n/a. 17:34 No provider procedures requiring assistance completed. Patient did not have IV access ll1 during this emergency room visit. Administered Medications: 17:32 Drug: Ciprofloxacin PO 500 mg PO once Route: PO; ll1 17:34 Follow up: Response: No adverse reaction ll1 17:32 Drug: Acetaminophen PO 1000 mg PO once Route: PO; ll1 17:34 Follow up: Response: No adverse reaction ll1 Medication: 17:35 VIS not applicable for this client. ll1 Outcome: 17:08 Discharge ordered by . kb 17:34 Discharged to home ambulatory, ll1 17:34 Condition: stable 17:34 Discharge instructions given to patient, family, Instructed on discharge instructions, follow up and referral plans. medication usage, Demonstrated understanding of instructions, follow-up care, medications, Prescriptions given X 1, 17:35 Patient left the ED. ll1 Signatures: Roselyn Oswald, MO-C TRUCK CHAUFFEUR-Keysha Newton, Reg Reg mr Alyssa Oglesby, RN RN Chris Knox RN RN ll1
[2023-01-04] MEDS ORDERED: CIPROFLOXACIN HCL 500 MG TAB ONE (17:40)
[2023-01-04] MEDS ORDERED: ACETAMINOPHEN 500 MG TAB ONE (17:40)
[2023-01-04 18:18] VITALS: BP 107/55; TEMP 97.9; O2SAT 95
== END 2023-01-04 17:35 | disposition home or self-care (01) ==
LOC: ER 14:50
DX: N39.0 Urinary tract infection, site not specified (principal); Z88.0 Allergy status to penicillin; Z88.2 Allergy status to sulfonamides; Z88.5 Allergy status to narcotic agent; Z88.8 Allergy status to other drugs, medicaments and biological substances
CPT/HCPCS: 81001; 87086; 87088; 99283

== ENCOUNTER 2023-01-26 15:37 | Emergency (ER) | payer OTHER ==
--- OUTSIDE RECORDS SUMMARY | 2023-01-26 15:44 | XMS REPORT | Continuity of Care Document ---
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 bold oral Tablet [...] MOUTH Delayed ONCE A Response DAY. ROPINIROLE 0 Yes 2mg TAKE 1 Kelse y HYDROCHLORI 3-20 TABLET (2 Sey bold DE 2 MG 00:00: MG TOTAL) oral Tablet 00 BY MOUTH NIGHTLY Pantoprazol 0 Yes TAKE ONE Ke lsey e Sodium 40 3-20 (1) Seybold MG oral 00:00: TABLET(S) Tablet 00 BY MOUTH Delayed ONCE A Response DAY. Citalopram Yes TAKE ONE John sey Hydrobromid 3-16 (1) Seybold e 20 MG [...] John sey Hydrobromid 3-16 (1) Seybold e 20 MG [...] John sey Hydrobromid 3-16 (1) Seybold e 20 MG [...] 30 MG DAILY. Citalopram Yes TAKE ONE Jonh sey Hydrobromid 3-16 (1) Seybold e 10 [...] A TOTAL OF 30 MG DAILY. Levothyroxi Yes [id number] TAKE ONE [place] ne Sodium 3-08 (1) Seybold 88 MCG oral 00:00: TABLET(S) Tablet 00 BY MOUTH DAILY. Levothyroxi 0 Yes [id number] TAKE ONE [place] ne Sodium 3-08 (1) Seybold 88 MCG oral 00:00: TABLET(S) Tablet 00 BY MOUTH DAILY. Levothyroxi 0 Yes [id number] TAKE ONE [place] ne Sodium 3-08 (1) Seybold 88 MCG oral 00:00: TABLET(S) - Tablet 00 BY MOUTH Externa DAILY. l Levothyroxi 2022-0 Yes [id number] TAKE ONE [place] ne Sodium 3-08 (1) Seybold 88 MCG oral 00:00: TABLET(S) - Tablet 00 BY MOUTH Externa DAILY. l Levothyroxi 2022-0 Yes [id number] TAKE ONE [place] ne Sodium 3-08 (1) Seybold 88 MCG oral 00:00: TABLET(S) - Tablet 00 BY MOUTH Externa DAILY. l Tizanidine 2022-0 Yes 4mg [id number] Take 1 [place] HCl 4 MG 3-07 [id number] tablet (4 Seybold oral Tablet 00:00: 3D mg total) 00 by mouth every 8 hours as needed FLUTICASONE 2022-0 Yes 100ug Use 2 Christi ey PROPIONATE, 3-07 sprays Seybol d NASAL, 50 00:00: (100 mcg MCG/ACT 00 total) in nasal each Suspension nostril in the morning. Tizanidine 2022-0 Yes 4mg Q.[id number] Take 1 [place] HCl 4 MG 3-07 [id number] tablet (4 Seybold oral Tablet 00:00: 3D mg total) 00 by mouth every 8 hours as needed Tizanidine 2022-0 Yes 4mg [id number] Take 1 [place] HCl 4 MG 3-07 [id number] tablet (4 Seybold oral Tablet 00:00: 3D mg total) - 00 by mouth Externa every 8 l hours as needed Tizanidine 2022-0 Yes 4mg Q.[id number] Take 1 [place] HCl 4 MG 3-07 [id number] tablet (4 Seybold oral Tablet 00:00: 3D mg total) - 00 by mouth Externa every 8 l hours as needed Tizanidine 2022-0 Yes 4mg Q.[id number] Take 1 [place] HCl 4 MG 3-07 [id number] tablet (4 Seybold oral Tablet 00:00: 3D mg total) - 00 by mouth Externa every 8 l hours as needed Lisinopril 2022-0 Yes TAKE 1 Kelse y 10 MG oral 2-23 TABLET (10 Sey bold Tablet 00:00: MG TOTAL) 00 BY MOUTH DAILY Lisinopril 2022-0 Yes TAKE 1 Kelse y 10 MG [...] 52 81 MG OR TBEC Amlodipine Yes [id number] 2.5mg TAKE 1 [place] Besylate 1-17 TABLET Seybold 2.5 MG oral 00:00: (2.5 MG Tablet 00 TOTAL) BY MOUTH EVERY MORNING Amlodipine Yes [id number] 2.5mg TAKE 1 [place] Besylate 1-17 TABLET Seybold 2.5 MG oral 00:00: (2.5 MG Tablet 00 TOTAL) BY MOUTH EVERY MORNING Amlodipine Yes [id number] 2.5mg TAKE 1 [place] Besylate 1-17 TABLET Seybold 2.5 MG oral 00:00: (2.5 MG - Tablet 00 TOTAL) BY Externa MOUTH l EVERY MORNING Amlodipine Yes [id number] 2.5mg TAKE 1 [place] Besylate 1-17 TABLET Seybold 2.5 MG oral 00:00: (2.5 MG - Tablet 00 TOTAL) BY Externa MOUTH l EVERY MORNING Amlodipine Yes [id number] 2.5mg TAKE 1 [place] Besylate 1-17 TABLET [...] a total of 30 mg daily. Citalopram 2021-0 2021- No Take 1 Christi ey Hydrobromid 1-14 10-05 tablet by Se ybold e 10 MG 00:00: 00:00 mouth - oral Tablet 00 :00 daily at Exte rna bedtime l together with a 20 mg for a total of 30 mg daily. Doxylamine Yes Take by Christi ey Succinate, 1-10 mouth Seybold Sleep, 15:49: nightly (SLEEP AID 09 OR) Aspirin 2021-0 Yes 81mg Take 81 mg Christi ey (KARYN 1-10 by mouth Seybold ASPIRIN EC 15:49: daily LOW DOSE) 08 81 MG OR TBEC Ibuprofen Yes 400mg Take 400 John sey 200 MG oral 1-10 mg by Seybold Cap 15:49: mouth 2 08 times daily Hydroxychlo 2021-0 Yes [id number] 200mg Take 1 [place] roquine 1-10 tablet Seybold Sulfate 200 00:00: (200 mg MG oral 00 total) by Tablet mouth 2 times daily predniSONE 2021-0 Yes [id number] Take 2 tab [place] 5 MG oral 1-10 for 1 week Seyb old Tablet 00:00: then 03 30/2 00 for 1 week then 1 tab for 1 week then 1/2 day predniSONE 2021-0 Yes [id number] Take 2 tab [place] 5 MG oral 1-10 for 1 week Seyb old Tablet 00:00: then 1 1/2 00 for 1 week then 1 tab for 1 week then 1/2 day predniSONE 2021-0 Yes [id number] Take 2 tab [place] 5 MG oral 1-10 for 1 week Seyb old Tablet 00:00: then 1 /2 00 for 1 week then 1 tab for 1 week then 1/2 day Levothyroxi 2021-0 Yes [id number] TAKE ONE [place] ne Sodium 1-06 (1) Seybold 88 MCG oral 00:00: TABLET(S) Tablet 00 BY MOUTH DAILY. Levothyroxi 2021-0 Yes [id number] TAKE ONE [place] ne Sodium 1-06 (1) Seybold 88 MCG oral 00:00: TABLET(S) Tablet 00 BY MOUTH DAILY. Levothyroxi 2021-0 Yes [id number] TAKE ONE [place] ne Sodium 1-06 (1) Seybold 88 MCG oral 00:00: TABLET(S) Tablet 00 BY MOUTH DAILY. Levothyroxi 2021- No [id number] TAKE ONE [place] ne Sodium 1-06 10-05 (1) Seybold 88 MCG oral 00:00: 00:00 TABLET(S) - Tablet 00 :00 BY MOUTH Externa DAILY. l Levothyroxi Yes [id number] TAKE ONE [place] ne Sodium 1-05 (1) Seybold 88 MCG oral 00:00: TABLET(S) Tablet 00 BY MOUTH DAILY. HYDROcodone 2020-03 Yes [id number] 1{tbl} Q8H Take 1 [place] -Acetaminop 2-28 tablet by Sey bold hen 10-325 00:00: [...] DAY. Citalopram 2020-03 Yes TAKE ONE John y Hydrobromid 2-13 (1) Seybold e 10 MG 00:00: TABLET(S) oral Tablet 00 BY MOUTH DAILY AT BEDTIME TOGETHER WITH A 20 MG FOR A TOTAL OF 30 MG DAILY. Citalopram 2020-03 Yes TAKE ONE John george Hydrobromid 2-09 (1) Seybold e 20 MG 00:00: TABLET(S) oral Tablet 00 BY MOUTH DAILY AT BEDTIME TOGETHER WITH A 10 MG FOR A TOTAL OF 30 MG. Atorvastati 2020-03 Yes [id number] 40mg TAKE 1 [place] n Calcium 1-26 TABLET (40 Seyb old 40 MG oral 00:00: MG TOTAL) Tablet 00 BY MOUTH DAILY Atorvastati 2020-03 Yes [id number] 40mg TAKE 1 [place] n Calcium 1-26 TABLET (40 Seyb old 40 MG oral 00:00: MG TOTAL) Tablet 00 BY MOUTH DAILY Atorvastati 2020-03 Yes [id number] 40mg TAKE 1 [place] n Calcium 1-26 TABLET (40 Seyb old 40 MG oral 00:00: MG TOTAL) Tablet 00 BY MOUTH DAILY Atorvastati 2020-03 Yes [id number] 40mg TAKE 1 [place] n Calcium 1-26 TABLET (40 Seyb old 40 MG oral 00:00: MG TOTAL) - Tablet 00 BY MOUTH Externa DAILY l Atorvastati 2020-03 Yes [id number] 40mg TAKE 1 [place] n Calcium 1-26 TABLET (40 Seyb old 40 MG oral 00:00: MG TOTAL) - Tablet 00 BY MOUTH Externa DAILY l Atorvastati 2020-03 Yes [id number] 40mg TAKE 1 [place] n Calcium 1-26 TABLET (40 Seyb old 40 MG oral 00:00: MG TOTAL) - Tablet 00 BY MOUTH Externa DAILY l Tramadol 2020-03 Yes TAKE ONE Kelse y HCl 50 MG 1-24 (1) TO TWO Seyb old oral Tablet 00:00: (2) 00 TABLET(S) BY MOUTH TWICE A DAY. Ibuprofen 2020-03 Yes 400mg Take 400 John sey 200 MG oral 1-15 mg by Seybold Cap 14:58: mouth 2 38 times daily Doxylamine 2020-03 Yes Take by Christi ey Succinate, 1-15 mouth Seybold Sleep, 14:58: nightly (SLEEP AID 38 OR) Melatonin 2020-03- Take by Christi ey 10 MG oral [...] OF 30 MG DAILY. Levothyroxi 2020-03 Yes [id number] Take one [place] ne Sodium 1-09 tablet [...] as needed for pain methylPREDN 2020-03 Yes [id number] 1{melony} Take 1 melony [place] ISolone 0-12 [id number] by mouth Seybol d (Medrol) 4 00:00: See Admin MG oral 00 Instructio Tablet ns Use as Therapy directed. Pack methylPREDN 2020-032- No [id number] 1{melony} Take 1 melony [place] ISolone 0-12 01-10 [id number] by mouth Seybo ld (Medrol) 4 00:00: [...] Seybold Tab 14:31: 19 methylPREDN 2020-03 Yes [id number] 1{melony} Take 1 melony [place] ISolone 0-01 [id number] by mouth Seybol d (Medrol) 4 00:00: [...] hours as needed for pain Amlodipine Yes [id number] 2.5mg TAKE 1 [place] Besylate 7-23 TABLET Seybold 2.5 MG oral 00:00: (2.5 MG Tablet 00 TOTAL) BY MOUTH EVERY MORNING Amlodipine Yes [id number] 2.5mg TAKE 1 [place] Besylate 7-23 TABLET Seybold 2.5 MG oral 00:00: (2.5 MG Tablet 00 TOTAL) BY MOUTH EVERY MORNING Amlodipine Yes [id number] 2.5mg TAKE 1 [place] Besylate 7-23 TABLET Seybold 2.5 MG oral 00:00: (2.5 MG Tablet 00 TOTAL) BY MOUTH EVERY MORNING Chlorhexidi Yes RINSE Liz loya ne 7- MOUTH WITH Seybold Gluconate 00:00: [...] SYMPTOMS OCCUR CALL T Chlorhexidi Yes RINSE Johnse y ne 7- MOUTH WITH Seybold Gluconate 00:00: 15ML (1 0.12 % 00 CAPFUL) mouth/throa FOR 30 t Solution SECONDS MORNING AND EVENING AFTER TOOTHBRUSH ING. EXPECTORAT E AFTER RINSING, DO NOT SWALLOW. Clindamycin Yes TAKE ONE Ke lsey HCl 300 MG 7-07 (1) Seybold oral 00:00: CAPSULE BY Capsule 00 MOUTH EVERY EIGHT HOURS UNTIL ALL TAKEN. THIS MEDICATION MAY CAUSE GASTROINTE STINAL UPSET, IF SYMPTOMS OCCUR CALL T Chlorhexidi Yes RINSE Liz watters - MOUTH WITH Seybold Gluconate 00:00: 15ML (1 [...] OCCUR CALL T Chlorhexidi Yes RINSE Liz watters 10-03 MOUTH WITH Seybold Gluconate 00:00: 15ML [...] OCCUR CALL T Chlorhexidi Yes RINSE Liz watters 10-03 MOUTH WITH Seybold Gluconate 00:00: 15ML [...] OCCUR CALL T Chlorhexidi Yes RINSE Liz watters 10-03 MOUTH WITH Seybold Gluconate 00:00: 15ML (1 - 0.12 % 00 CAPFUL) Externa mouth/throa FOR 30 l t Solution SECONDS MORNING AND EVENING AFTER TOOTHBRUSH ING. EXPECTORAT E AFTER RINSING, DO NOT SWALLOW. Clindamycin Yes TAKE ONE Ke lsey HCl 300 MG 7-07 (1) Seybold oral 00:00: CAPSULE BY - Capsule 00 MOUTH Externa EVERY l EIGHT HOURS UNTIL ALL TAKEN. THIS MEDICATION MAY CAUSE GASTROINTE STINAL UPSET, IF SYMPTOMS OCCUR CALL T Chlorhexidi Yes RINSE Kelse shalini ne 7-07 MOUTH WITH Seybold Gluconate 00:00: 15ML (1 - 0.12 % 00 CAPFUL) Externa mouth/throa FOR 30 l t Solution SECONDS MORNING AND EVENING AFTER TOOTHBRUSH ING. EXPECTORAT E AFTER RINSING, DO NOT SWALLOW. Clindamycin Yes TAKE ONE Ke lsey HCl 300 MG 7-07 (1) Seybold oral 00:00: CAPSULE BY - Capsule 00 MOUTH Externa EVERY l EIGHT HOURS UNTIL ALL TAKEN. THIS MEDICATION MAY CAUSE GASTROINTE STINAL UPSET, IF SYMPTOMS OCCUR CALL T Chlorhexidi Yes RINSE Johnse y ne 7-07 MOUTH WITH Seybold Gluconate 00:00: 15ML (1 - 0.12 % 00 CAPFUL) Externa mouth/throa FOR 30 l t Solution SECONDS MORNING AND EVENING AFTER TOOTHBRUSH ING. EXPECTORAT E AFTER RINSING, DO NOT SWALLOW. Clindamycin Yes TAKE ONE Ke lsey HCl 300 MG - (1) Seybold oral 00:00: CAPSULE BY - Capsule 00 MOUTH Externa EVERY l EIGHT HOURS UNTIL ALL TAKEN. THIS MEDICATION MAY CAUSE GASTROINTE STINAL UPSET, IF SYMPTOMS OCCUR CALL T Chlorhexidi Yes RINSE Johnse shalini ne 7-07 MOUTH WITH Seybold Gluconate 00:00: 15ML (1 - 0.12 % 00 CAPFUL) Externa mouth/throa FOR 30 l t Solution SECONDS MORNING AND EVENING AFTER TOOTHBRUSH ING. EXPECTORAT E AFTER RINSING, DO NOT SWALLOW. Clindamycin Yes TAKE ONE Ke lsey HCl 300 MG 7-07 (1) Seybold oral 00:00: CAPSULE BY - Capsule 00 MOUTH Externa EVERY l EIGHT HOURS UNTIL ALL TAKEN. THIS MEDICATION MAY CAUSE GASTROINTE STINAL UPSET, IF SYMPTOMS OCCUR CALL T Chlorhexidi Yes RINSE Kelse y ne 7-07 MOUTH WITH Seybold Gluconate 00:00: 15ML (1 - 0.12 % 00 CAPFUL) Externa mouth/throa FOR 30 l t Solution SECONDS MORNING AND EVENING AFTER TOOTHBRUSH ING. EXPECTORAT E AFTER RINSING, DO NOT SWALLOW. Clindamycin Yes TAKE ONE Ke lsey HCl 300 MG - (1) Seybold oral 00:00: CAPSULE BY - Capsule 00 MOUTH Externa EVERY l EIGHT HOURS UNTIL ALL TAKEN. THIS MEDICATION MAY CAUSE GASTROINTE STINAL UPSET, IF SYMPTOMS OCCUR CALL T Chlorhexidi Yes RINSE Kelse y ne 7-07 [...] T Chlorhexidi Yes RINSE Kelse y ne 7-07 [...] Tablet 00 BY MOUTH NIGHTLY Valacyclovi Yes [id number] 500mg Take 1 [place] r HCl 500 6-15 tablet Seybold MG oral 00:00: (500 mg Tablet 00 total) by mouth 2 times daily 1 tablet p.o twice daily for 3-5 days as needed per occurrence . Valacyclovi Yes [id number] 500mg Take 1 [place] r HCl 500 6-15 tablet Seybold MG oral 00:00: (500 mg Tablet 00 total) by mouth 2 times daily 1 tablet p.o twice daily for 3-5 days as needed per occurrence . Valacyclovi Yes [id number] 500mg Take 1 [place] r HCl 500 6-15 tablet Seybold MG oral 00:00: (500 mg Tablet 00 total) by mouth 2 times daily 1 tablet p.o twice daily for 3-5 days as needed per occurrence . Valacyclovi Yes [id number] 500mg Take 1 [place] r HCl 500 6-15 tablet Seybold MG oral 00:00: (500 mg Tablet 00 total) by mouth 2 times daily 1 tablet p.o twice daily for 3-5 days as needed per occurrence . Valacyclovi Yes [id number] 500mg Take 1 [place] r HCl 500 6-15 tablet Seybold MG oral 00:00: (500 mg - Tablet 00 total) by Externa mouth 2 l times daily 1 tablet p.o twice daily for 3-5 days as needed per occurrence . Valacyclovi Yes [id number] 500mg Take 1 [place] r HCl 500 6-15 tablet Seybold MG oral 00:00: (500 mg - Tablet 00 total) by Externa mouth 2 l times daily 1 tablet p.o twice daily for 3-5 days as needed per occurrence . Valacyclovi Yes [id number] 500mg Take 1 [place] r HCl 500 6-15 tablet Seybold MG oral 00:00: (500 mg - Tablet 00 total) by Externa mouth 2 l times daily 1 tablet p.o twice daily for 3-5 days as needed per occurrence . Valacyclovi Yes [id number] 500mg Take 1 [place] r HCl 500 6-15 tablet Seybold MG oral 00:00: (500 mg - Tablet 00 total) by Externa mouth 2 l times daily 1 tablet p.o twice daily for 3-5 days as needed per occurrence . Valacyclovi 0 Yes [id number] 500mg Take 1 [place] r HCl 500 6-15 tablet Seybold MG oral 00:00: (500 mg - Tablet 00 total) by Externa mouth 2 l times daily 1 tablet p.o twice daily for 3-5 days as needed per occurrence . Valacyclovi 2020-0 Yes [id number] 500mg Take 1 [place] r HCl 500 6-15 tablet Seybold MG oral 00:00: (500 mg Tablet 00 total) by mouth 2 times daily 1 tablet p.o twice daily for 3-5 days as needed per occurrence . Valacyclovi 2020-0 2023- No [id number] 500mg Take 1 [place] r HCl 500 [...] 00 TIMES DAILY AND THEN NEEDED Acyclovir 0 Yes TAKE 1 [place] 800 MG oral 6-07 TABLET BY Sey bold Tablet 00:00: MOUTH 5 00 TIMES DAILY AND THEN NEEDED Acyclovir 0 Yes TAKE 1 [place] 800 MG oral 6-07 TABLET BY Sey bold Tablet 00:00: MOUTH 5 00 TIMES DAILY AND THEN NEEDED Alprazolam 0 2020- No TAKE ONE Ke lsey 0.25 [...] 8 Tablet HOURS NEEDED FOR PAIN Tizanidine Yes TAKE ONE John sey HCl [...] ophthalmic 00 days Externa Solution l OFLOXACIN, 2021-0 Yes 4 drops Christi ey OPHTH, 0.3 [...] apply 00 itching externally Solution Atorvastati Yes [id number] 40mg TAKE 1 [place] n Calcium 3-01 TABLET (40 Seyb old 40 MG oral 00:00: MG TOTAL) Tablet 00 BY MOUTH DAILY Atorvastati Yes [id number] 40mg TAKE 1 [place] n Calcium 3-01 TABLET (40 Seyb old 40 MG oral 00:00: MG TOTAL) Tablet 00 BY MOUTH DAILY Ezetimibe 2020- No 10mg Take 1 Kelse y (Zetia) 10 1-07 10-07 tablet (10 Se ybold MG oral Tab 00:00: 00:00 mg total) 00 :00 by mouth daily Gabapentin 2019-03 Yes [id number] TAKE ONE [place] 300 MG oral 2-05 (1) Seybold Cap 00:00: CAPSULE(S) 00 BY MOUTH ONCE A DAY AT BEDTIME. Gabapentin 2019-03- No [id number] TAKE ONE [place] 300 MG oral 2-05 [...] Suspension ONCE A DAY. Levothyroxi 2019-03 Yes [id number] Take one [place] ne Sodium 1-05 tablet Seybold 88 MCG oral 00:00: daily Tab 00 Citalopram Yes [id number] 10mg Take 1 K elsey Hydrobromid 9-22 tablet (10 Se ybold e 10 MG 00:00: mg total) oral Tab 00 by mouth daily Cyanocobala 2019-0 Yes 1000ug Inject Ke lsey [...] Solution month Cyanocobala 2022- No 1000ug Inject Torie chan min (VIT 6- 1,000 mcg Seybo ld B12) 1000 00:00: 00:00 as - MCG/ML 00 :00 directed Externa injection once a l Solution month Diclofenac 2019- Yes 2g Apply 2 g Ke lsey [...] 04 every Center night as needed. traZODone Yes 100mg QD Take [address] [facility] (DESYREL) 5-23 mg by [facility] 100 MG 09:52: mouth Medical tablet 04 nightly. Center aspirin 81 2018- Yes 81mg QD Take [address] MG EC 5-23 by mouth [facility] tablet 09:52: daily. Medical 04 Center citalopram Yes 40mg QD Take [address] (CELEXA) 40 5-23 by mouth Luke s MG tablet 09:52: daily. Medica l 04 Center levothyroxi Yes 100ug QD Take 100 C [...] MG 09:52: mouth Medical tablet 04 daily. [place] atorvastati Yes 40mg QD Take [address] [facility] n (LIPITOR) 5-23 by mouth Luke s 40 MG 09:52: daily. Medical tablet 04 [place] ciprofloxac Yes 500mg Q.5D Take [address] in HCl 5-23 mg by [facility] (CIPRO) 500 09:52: mouth 2 Med ical MG tablet 04 (two) Center times daily. clobetasol 0 Yes Q.5D Apply [facility] (CLOBEX) 5-23 topically [facility] 0.05 % 09:52: 2 (two) Medical lotion 04 times Center daily. clopidogrel Yes 75mg QD Take [address] [facility] (PLAVIX) 75 5-23 by mouth Luke s mg tablet 09:52: daily. Medica l 04 [place] cyanocobala Yes Inject as [facility] [...] 09:52: daily. Medic al MG tablet 04 [place] rOPINIRole 2019-0 Yes 1mg Q.[id number] Take [address] [facility] (REQUIP) 1 5-23 [id number] by mouth 3 [facility] MG tablet 09:52: [...] 5-23 mouth. [facility] (ZZZQUIL 09:52: Medical ORAL) 04 Center ALPRAZolam Yes .25mg Take 0.[address] (XANAX) 5-23 mg by [facility] 0.25 MG 09:52: mouth Medical tablet 04 every Center night as needed. traZODone Yes 100mg QD Take [address] [facility] (DESYREL) 5-23 mg by [facility] 100 MG 09:52: mouth Medical tablet 04 nightly. [place] aspirin 81 Yes 81mg QD Take [address] MG EC 5-23 by mouth [facility] tablet 09:52: daily. Medical 04 Center citalopram Yes 40mg QD Take [address] (CELEXA) 40 5-23 by mouth Luke s MG tablet 09:52: daily. Medica l 04 [place] levothyroxi Yes 100ug QD Take [address] ne 5-23 mcg by [facility] (SYNTHROID, 09:52: mouth Medic al LEVOTHROID) 04 daily. [place] 100 MCG tablet pantoprazol Yes 40mg QD [...] MG 09:52: mouth Medical tablet 04 daily. [place] atorvastati Yes 40mg QD Take [address] [facility] n (LIPITOR) 5-23 by mouth Luke s 40 MG 09:52: daily. Medical tablet 04 [place] ciprofloxac 0 Yes 500mg Q.5D Take [address] in HCl 5-23 mg by [facility] (CIPRO) 500 09:52: mouth 2 Med ical MG tablet 04 (two) Center times daily. clobetasol 2018-0 Yes Q.5D Apply [facility] (CLOBEX) 5-23 topically [facility] 0.05 % 09:52: 2 (two) Medical lotion 04 times Center daily. clopidogrel 2019-0 Yes 75mg QD Take [address] [facility] (PLAVIX) 75 5-23 by mouth Luke s mg tablet 09:52: daily. Medica l 04 Center cyanocobala 2018-0 Yes Inject as [facility] min, 5-23 directed. [facility] vitamin 09:52: Medical B-12, (B-12 04 Center COMPLIANCE INJ) diclofenac 2018-0 Yes Q.25D Apply [facility] % Gel 5-23 topically [facility] 09:52: 4 (four) Medical 04 times Center daily. fluticasone 2019-0 Yes 1{spray QD [address] [facility] propionate 5-23 } Nasal [facility] (FLONASE) 09:52: route Medical 50 04 daily. Center mcg/actuati on nasal spray HYDROcodone 2018-0 Yes 1{tbl} Take [address] -acetaminop 5-23 tablet by Cristian escobedo (NORCO 09:52: mouth Medica l 5-325) 04 every 6 Center 5-325 mg (six) per tablet hours as needed for Pain. hydroxychlo 2019-0 Yes QD Take by [facility] roquine 5-23 mouth [facility] (PLAQUENIL) 09:52: daily. Medi greg 200 mg 04 Center tablet ibuprofen 2018-0 Yes 200mg Take [address] [facility] (ADVIL,MOTR 5-23 mg by [facility] IN) 200 MG 09:52: mouth Medica l tablet 04 every 6 Center (six) hours as needed for Pain. lisinopril 2019-0 Yes 10mg QD Take [address] (PRINIVIL,Z 5-23 by mouth Luke [facility] ESTRIL) 10 09:52: daily. Medic al MG tablet 04 Center rOPINIRole 2019-0 Yes 1mg Q.[id number] Take [address] [facility] (REQUIP) 1 5-23 [id number] by mouth 3 [facility] MG tablet 09:52: [...] Center hours as needed for Pain. diphenhydra 2018-0 Yes Take by [facility] mine HCl 5-23 mouth. [facility] (BENADRYL 09:52: Medical ALLERGY 04 Center ORAL) diphenhydra 2018-0 Yes Take by [facility] mine HCl 5-23 mouth. [facility] (ZZZQUIL 09:52: Medical ORAL) 04 Center Immunizations Ordered Immunization Filled Date Status Comments Sour ce Name Immunization Name Pneumococcal Vaccine, 2018-01-14 Completed John sey Seybold Polysaccharide 00:00:00 Pneumococcal Vaccine, 2018-01-14 Completed John sey Seybold Polysaccharide 00:00:00 Pneumococcal Vaccine, 2018-01-14 Completed John sey Seybold Polysaccharide 00:00:00 Pneumococcal Vaccine, 2018-01-14 Completed John sey Seybold Polysaccharide 00:00:00 Pneumococcal Vaccine, 2018-01-14 Completed John sey Seybold Polysaccharide 00:00:00 Pneumococcal Vaccine, 2018-01-14 Completed Ojhn sey Seybold Polysaccharide 00:00:00 - External Pneumococcal Vaccine, 2018-01-14 Completed John sey Seybold Polysaccharide 00:00:00 - External Pneumococcal Vaccine, 2018-01-14 Completed John sey Seybold Polysaccharide 00:00:00 - External Pneumococcal Vaccine, 2018-01-14 Completed John sey Seybold Polysaccharide 00:00:00 - External Pneumococcal Vaccine, 2018-01-14 Completed John sey Seybold Polysaccharide 00:00:00 - External Pneumococcal Vaccine, 2018-01-14 Completed John sey Seybold Polysaccharide 00:00:00 - External Pneumococcal Vaccine, 2016-06-13 Completed John sey Seybold Conjugate 13 00:00:00 Pneumococcal Vaccine, 2016-06-13 Completed John sey Seybold Conjugate 13 00:00:00 Pneumococcal Vaccine, 2016-06-13 Completed John sey Seybold Conjugate 13 00:00:00 Pneumococcal Vaccine, 2016-06-13 Completed John sey Seybold Conjugate 13 00:00:00 Pneumococcal Vaccine, 2016-06-13 Completed John sey Seybold Conjugate 13 00:00:00 Pneumococcal Vaccine, 2016-06-13 Completed John sey Seybold Conjugate 13 00:00:00 - External Pneumococcal Vaccine, 2016-06-13 Completed John sey Seybold Conjugate 13 00:00:00 - External Pneumococcal Vaccine, 2016-06-13 Completed John sey Seybold Conjugate 13 00:00:00 - External Pneumococcal Vaccine, 2016-06-13 Completed John sey Seybold Conjugate 13 00:00:00 - External Pneumococcal Vaccine, 2016-06-13 Completed John sey Seybold Conjugate 13 00:00:00 - External Pneumococcal Vaccine, 2016-06-13 Completed John sey Seybold Conjugate 13 00:00:00 - External Tdap- (Boostrix, 2016-02-04 Completed [place] S eybold Adacel) 00:00:00 Tdap- (Boostrix, 2016-02-04 Completed [place] S eybold Adacel) 00:00:00 Tdap- (Boostrix, 2016-02-04 Completed [place] S eybold Adacel) 00:00:00 Tdap- (Boostrix, 2016-02-04 Completed [place] S eybold Adacel) 00:00:00 Tdap- (Boostrix, 2016-02-04 Completed [place] S eybold Adacel) 00:00:00 Tdap- (Boostrix, 2016-02-04 Completed [place] S eybold Adacel) 00:00:00 - External Tdap- (Boostrix, 2016-02-04 Completed [place] S eybold Adacel) 00:00:00 - External Tdap- (Boostrix, 2016-02-04 Completed [place] S eybold Adacel) 00:00:00 - External Tdap- (Boostrix, 2016-02-04 Completed [place] S eybold Adacel) 00:00:00 - External Tdap- (Boostrix, 2016-02-04 Completed [place] S eybold Adacel) 00:00:00 - External Tdap- (Boostrix, 2016-02-04 Completed [place] S eybold Adacel) 00:00:00 - External Tdap- (Boostrix, Unknown Completed Mecredez S eybold Adacel) - External Pneumococcal Vaccine, Unknown Completed John sey Seybold Conjugate 13 - External Pneumococcal Vaccine, Unknown Completed John sey Seybold Polysaccharide - External Vital Signs Vital Name Observation Time Observation [...] Body height 2022-09-09 20:31:00 157.5 cm [facility] S eybold - External Body weight 2022-09-09 20:31:00 62.596 kg [facility] S eybold - External BMI 2022-09-09 20:31:00 25.24 kg/m2 [place] S eybold - External Oxygen saturation in 2022-09-09 20:31:00 99 /min [facility] Seybold - Arterial blood by External Pulse oximetry Systolic blood 2022-07-07 21:14:00 130 mm[Hg] [facility] Seybold - pressure External Diastolic blood 2022-07-07 21:14:00 58 mm[Hg] Johnse y Seybold - pressure External Heart rate 2022-07-07 21:14:00 62 /min [place] S eybold - External Body temperature 2022-07-07 21:14:00 36.44 Ana Christi ey Seybold - External Respiratory rate 2022-07-07 21:14:00 16 /min Christi ey Seybold - External Body height 2022-07-07 21:14:00 157.5 cm [facility] S eybold - External Body weight 2022-07-07 21:14:00 61.598 kg [place] S eybold - External BMI 2022-07-07 21:14:00 24.84 kg/m2 Mercedez S eybold - External Oxygen saturation in 2022-07-07 21:14:00 94 /min Mercedez Seybold - Arterial blood by External Pulse oximetry Body height 2022-01-01 15:57:00 157.5 cm Mercedez S eybold - External Body weight 2022-01-01 15:57:00 65.318 kg Mercedez Maldonado eybold - External BMI 2022-01-01 15:57:00 26.34 kg/m2 Mercedez S eybold - External Systolic blood 2021-04-08 21:44:00 142 mm[Hg] Mercedez Seybold pressure Diastolic blood 2021-04-08 21:44:00 58 mm[Hg] Kelse y Seybold pressure Heart rate 2021-04-08 21:44:00 78 /min Mercedez S eybold Respiratory rate 2021-04-08 21:44:00 16 /min Christi ey Seybold Body height 2021-04-08 21:44:00 157.5 cm Mercedez S eybold Body weight 2021-04-08 21:44:00 63.685 kg Mercedez S eybold BMI 2021-04-08 21:44:00 25.68 kg/m2 Mercedez [...] saturation in 2021-02-11 20:51:00 99 /min Mercedez Clancy Arterial blood by Pulse oximetry Height 2013-02-02 04:00:00 157.48 CM Weight 2013-02-02 04:00:00 54.43 KG Procedures Procedure Date / Time Performing Clinician Source Performed LUMBAR SPINE 2 VIEWS 2021-09-02 19:38:29 Lachelle Schwarz BILAT SHOULDER 3 VIEW 2020-12-28 20:26:42 Lachelle Schwarz (ORTHO) LEFT HEART CARDIAC CATH 2013-02-04 00:00:00 [facility] LT HEART ANGIOCARDIOGRAM 2013-02-04 00:00:00 [facility] COR ARTERIOGRAM-2 CATH 2013-02-04 00:00:00 [facility] APPLICATION OF SPLINT 2013-02-02 00:00:00 [facility] Plan of Care Planned Activity Planned Date Details Comments Source Encounters Start End Encounter Admission Attending Care Care Encounter Source Date/Time Date/Time Type Type Clinicians Facility Department ID 2023-02-09 2023-02-09 Outpatient MIRDEVITEHRA MERCEDEZ RUTH [id number] [place] 15:15:00 15:15:00 DAVONTE WATTERS 2023-01-26 2023-01-26 Outpatient MERCEDEZ DSOUZA [id number] [place] 15:45:00 15:45:00 VICK Seybol d 2023-01-26 2023-01-26 Outpatient KATHERYN SHAH [id number] [place] 12:45:00 12:45:00 Seybol d 2023-01-26 2023-01-26 Outpatient MERCEDEZ WILSON [id number] [place] 00:00:00 00:00:00 EMMANUEL Seybol d 2023-01-26 2023-01-26 Outpatient MERCEDEZ DSOUZA [id number] [place] 00:00:00 00:00:00 VICK Seybol d 2023-01-16 2023-01-16 Outpatient MERCEDEZ DSOUZA [id number] [place] 00:00:00 00:00:00 VICK Seybol d 2023-01-12 2023-01-12 Outpatient MERCEDEZ DSOUZA [id number] [place] 00:00:00 00:00:00 VICK Seybol d 2023-01-11 2023-01-11 Outpatient MERCEDEZ DSOUZA [id number] [place] 00:00:00 00:00:00 VICK Seybol d 2023-01-09 2023-01-09 Outpatient MERCEDEZ DSOUZA [id number] [place] 00:00:00 00:00:00 VICK Seybol d 2023-01-01 2023-01-01 Outpatient MERCEDEZ WILSON [id number] [place] 00:00:00 00:00:00 EMMANUEL Seybol d 2022-12-12 2022-12-12 Outpatient MERCEDEZ ATKINSON [id number] [place] 00:00:00 00:00:00 DONYALE Seybol d 2022-12-12 2022-12-12 Outpatient MERCEDEZ DSOUZA [id number] [place] 00:00:00 00:00:00 VICK Seybol d 2022-12-04 2022-12-04 Outpatient MERCEDEZ WILSON [id number] [place] 00:00:00 00:00:00 EMMANUEL Seybol d 2022-11-21 2022-11-21 Outpatient MERCEDEZ ATKINSON [id number] [place] 00:00:00 00:00:00 DONYALE Seybol d 2022-11-17 2022-11-17 Outpatient LAITHMERCEDEZ Fox [id number] [place] 00:00:00 00:00:00 MEGAN Seybol d 2022-11-03 2022-11-03 Outpatient MERCEDEZ DSOUZA [id number] [place] 00:00:00 00:00:00 VICK Seybol d 2022-10-22 2022-10-22 Outpatient MERCEDEZ DSOUZA [id number] [place] 00:00:00 00:00:00 VICK Seybol d 2022-10-20 2022-10-20 Outpatient LAITHMERCEDEZ TAPIA [id number] [place] 00:00:00 00:00:00 MEGAN Seybol d 2022-09-17 2022-09-17 Outpatient MERCEDEZ DSOUZA [id number] [place] 00:00:00 00:00:00 VICK Seybol d 2022-09-15 2022-09-15 Outpatient MERCEDEZ WILSON [id number] [place] 00:00:00 00:00:00 EMMANUEL Seybol d 2022-09-15 2022-09-15 Outpatient MERCEDEZ WILSON [id number] [place] 00:00:00 00:00:00 EMMANUEL Seybol d 2022-09-15 2022-09-15 Outpatient MERCEDEZ RUTH [id number] [place] 00:00:00 00:00:00 Seybol d 2022-09-15 2022-09-15 Outpatient MERCEDEZ WILSON [id number] [place] 00:00:00 00:00:00 EMMANUEL Seybol d 2022-09-15 2022-09-15 Outpatient MERCEDEZ WILSON [id number] [place] 00:00:00 00:00:00 EMMANUEL Seybol d 2022-09-10 2022-09-10 Outpatient MERCEDEZ DSOUZA [id number] [place] 00:00:00 00:00:00 VICK Seybol d 2022-09-10 2022-09-10 Outpatient MERCEDEZ DSOUZA [id number] [place] 00:00:00 00:00:00 VICK Seybol d 2022-09-10 2022-09-10 Outpatient MERCEDEZ CARMEN [id number] [place] 00:00:00 00:00:00 ONI Seybol d 2022-09-10 2022-09-10 Outpatient MERCEDEZ LYNN [id number] [place] 00:00:00 00:00:00 MONIQUE Seybol d 2022-09-09 2022-09-09 Outpatient MERCEDEZ OZUNA [id number] [place] 15:15:00 15:15:00 MEGAN Seybol d 2022-09-09 2022-09-09 Outpatient MERCEDEZ OZUNA [id number] [place] 15:00:00 15:00:00 MEGAN Seybol d 2022-09-09 2022-09-09 Outpatient MERCEDEZ DSOUZA [id number] [place] 00:00:00 00:00:00 VICK Seybol d 2022-09-09 2022-09-09 Outpatient MERCEDEZ RUTH [id number] [place] 00:00:00 00:00:00 Seybol d 2022-09-09 2022-09-09 Outpatient MERCEDEZ LYNN [id number] [place] 00:00:00 00:00:00 MONIQUE Seybol d 2022-09-07 2022-09-07 Outpatient MERCEDEZ LYNN [id number] [place] 00:00:00 00:00:00 MONIQUE Seybol d 2022-08-28 2022-08-28 Outpatient MERCEDEZ OZUNA [id number] [place] 15:30:00 15:30:00 MEGAN Seybol d 2022-08-19 2022-08-19 Outpatient MERCEDEZ LYNN [id number] [place] 00:00:00 00:00:00 MONIQUE Seybol d 2022-08-17 2022-08-17 Outpatient MERCEDEZ ATKINSON [id number] [place] 00:00:00 00:00:00 DONYALE Seybol d 2022-08-14 2022-08-14 Outpatient MIRZAPHILIP RUTH [id number] [place] 00:00:00 00:00:00 DAVONTE WATTERS bold 2022-08-14 2022-08-14 Outpatient MERCEDEZ ATKINSON [id number] [place] 00:00:00 00:00:00 DONYALE Seybol d 2022-08-10 2022-08-10 Outpatient MERCEDEZ LYNN [id number] [place] 00:00:00 00:00:00 MONIQUE Seybol d 2022-08-08 2022-08-08 Outpatient MERCEDEZ DSOUZA [id number] [place] 00:00:00 00:00:00 VICK Seybol d 2022-07-31 2022-07-31 Outpatient MIRZAITELEXY RUTH [id number] [place] 00:00:00 00:00:00 DAVONTE WATTERS Sey bold 2022-07-27 2022-07-27 Outpatient MERCEDEZ ATKINSON [id number] [place] 00:00:00 00:00:00 DONYALE Seybol d 2022-07-23 2022-07-23 Outpatient MERCEDEZ DSOUZA [id number] [place] 00:00:00 00:00:00 VICK Seybol d 2022-07-23 2022-07-23 Outpatient MERCEDEZ CURTIS [id number] [place] 00:00:00 00:00:00 YARY Seybo ld 2022-07-21 2022-07-21 Outpatient MERCEDEZ CARMEN [id number] [place] 00:00:00 00:00:00 ONI Seybol d 2022-07-17 2022-07-17 Outpatient MERCEDEZ LYNN [id number] [place] 00:00:00 00:00:00 MONIQUE Seybol d 2022-07-16 2022-07-16 Outpatient MERCEDEZ DSOUZA [id number] [place] 00:00:00 00:00:00 VICK Seybol d 2022-07-16 2022-07-16 Outpatient MERCEDEZ LYNN [id number] [place] 00:00:00 00:00:00 MONIQUE Seybol d 2022-07-07 2022-07-07 Outpatient LAB90 MERCEDEZ RUTH [id number] [place] 17:25:00 17:25:00 Seybol d 2022-07-07 2022-07-07 Outpatient MERCEDEZ CARMEN [id number] [place] 15:45:00 15:45:00 ONI Seybol d 2022-07-05 2022-07-05 Outpatient MERCEDEZ DSOUZA [id number] [place] 00:00:00 00:00:00 VICK Seybol d 2022-07-03 2022-07-03 Outpatient MERCEDEZ ATKINSON [id number] [place] 00:00:00 00:00:00 DONYALE Seybol d 2022-06-11 2022-06-11 Outpatient BA RUTH [id number] [place] 00:00:00 00:00:00 MD PRADEEP Seybol d 2022-06-10 2022-06-10 Outpatient MERCEDEZ LYNN [id number] [place] 00:00:00 00:00:00 MONIQUE Seybol d 2022-06-10 2022-06-10 Outpatient MERCEDEZ ATKINSON [id number] [place] 00:00:00 00:00:00 DONYALE Seybol d 2022-06-10 2022-06-10 Outpatient MERCEDEZ CURTIS [id number] [place] 00:00:00 00:00:00 YARY Seybo ld 2022-06-10 2022-06-10 Outpatient MERCEDEZ DSOUZA [id number] [place] 00:00:00 00:00:00 VICK Seybol d 2022-06-05 2022-06-05 Outpatient MERCEDEZ LYNN [id number] [place] 00:00:00 00:00:00 MONIQUE Seybol d 2022-06-05 2022-06-05 Outpatient MERCEDEZ ATKINSON [id number] [place] 00:00:00 00:00:00 DONYALE Seybol d 2022-05-28 2022-05-28 Outpatient MERCEDEZ CURTIS [id number] [place] 00:00:00 00:00:00 YARY Seybo ld 2022-05-28 2022-05-28 Outpatient MERCEDEZ DSOUZA [id number] [place] 00:00:00 00:00:00 VICK Seybol d 2022-05-28 2022-05-28 Outpatient MERCEDEZ ATKINSON [id number] [place] 00:00:00 00:00:00 DONYALE Seybol d 2022-05-16 2022-05-16 Outpatient MERCEDEZ DSOUZA [id number] [place] 15:00:00 15:00:00 VICK Seybol d 2022-05-15 2022-05-15 Outpatient BA RUTH [id number] [place] 00:00:00 00:00:00 MD PRADEEP Seybol d 2022-05-13 2022-05-13 Outpatient MERCEDEZ LYNN [id number] [place] 00:00:00 00:00:00 MONIQUE Seybol d 2022-05-13 2022-05-13 Outpatient MERCEDEZ ATKINSON [id number] [place] 00:00:00 00:00:00 DONYALE Seybol d 2022-05-08 2022-05-08 Outpatient MIRJEFF RUTH [id number] [place] 15:00:00 15:00:00 JADEDAVONTE bold 2022-05-08 2022-05-08 Outpatient MERECDEZ LYNN [id number] [place] 00:00:00 00:00:00 MONIQUE Seybol d 2022-05-05 2022-05-05 Outpatient LIANNA, MERCEDEZ RUTH [id number] [place] 00:00:00 00:00:00 VICK Seybol d 2022-05-05 2022-05-05 Outpatient MOHAMEDMERCEDEZ [id number] [place] 00:00:00 00:00:00 WESAM Seybol d 2022-05-05 2022-05-05 Outpatient COTTON, JAROD RUTH [id number] [place] 00:00:00 00:00:00 Seybol d 2022-05-05 2022-05-05 Outpatient COTTON, JAROD RUTH [id number] [place] 00:00:00 00:00:00 Seybol d 2022-05-05 2022-05-05 Outpatient LIANNAMERCEDEZ WAHL [id number] [place] 00:00:00 00:00:00 VICK Seybol d 2022-05-02 2022-05-02 Outpatient MERCEDEZ DSOUZA [id number] [place] 16:30:00 16:30:00 VICK Seybol d 2022-04-15 2022-04-15 Outpatient MYKELSEYONL MERCEDEZ RUTH [id number] [place] 00:00:00 00:00:00 MD PRADEEP Seybol d 2022-04-14 2022-04-14 Outpatient CURTISMERCEDEZ [id number] [place] 00:00:00 00:00:00 YARY Seybo ld 2022-04-14 2022-04-14 Outpatient MERCEDEZ LYNN [id number] [place] 00:00:00 00:00:00 MONIQUE Seybol d 2022-04-02 2022-04-02 Outpatient COTTON, JAROD RUTH [id number] [place] 00:00:00 00:00:00 Seybol d 2022-04-02 2022-04-02 Outpatient MIRZAITEHRA MERCEDEZ RUTH [id number] [place] 00:00:00 00:00:00 DAVONTE WATTERS bold 2022-04-02 2022-04-02 Outpatient LIANNA, MERCEDEZ RUTH [id number] [place] 00:00:00 00:00:00 VICK Seybol d 2022-03-17 2022-03-17 Outpatient MIRZAITEHRA MERCEDEZ RUTH [id number] [place] 00:00:00 00:00:00 NEDAVONTE Seshalini bold 2022-03-17 2022-03-17 Outpatient LIANNAMERCEDEZ [id number] [place] 00:00:00 00:00:00 VICK Seybol d 2022-03-17 2022-03-17 Outpatient MERCEDEZ ATKINSON [id number] [place] 00:00:00 00:00:00 DONYALE Seybol d 2022-03-15 2022-03-15 Outpatient MERCEDEZ ATKINSON [id number] [place] 00:00:00 00:00:00 DONYALE Seybol d 2022-03-15 2022-03-15 Outpatient MIRZAITEHRA MERCEDEZ RUTH [id number] [place] 00:00:00 00:00:00 DAVONTE WATTERS Seshalini bold 2022-02-05 2022-02-05 Outpatient ENZOJOANIEAnuradha RUTH [id number] [place] 14:00:00 14:00:00 Seybol d 2022-01-31 2022-01-31 Outpatient ONWUCHURUBA MERCEDEZ RUTH [id number] [place] 16:00:00 16:00:00 , SHO Sey bold 2022-01-31 2022-01-31 Outpatient MERCEDEZ DSOUZA [id number] [place] 15:30:00 15:30:00 VIKC Seybol d 2022-01-23 2022-01-23 Outpatient MIRZAITEHRA MERCEDEZ RUTH [id number] [place] 00:00:00 00:00:00 DAVONTE WATTERS George bold 2022-01-22 2022-01-22 Outpatient MERCEDEZ RUTH [id number] [place] 15:30:00 15:30:00 Seybol d 2022-01-22 2022-01-22 Outpatient MERCEDEZGEORGE RUTH [id number] [place] 14:30:00 14:30:00 Seybol d 2022-01-22 2022-01-22 Outpatient MERCEDEZ RUTH [id number] [place] 14:00:00 14:00:00 Seybol d 2022-01-22 2022-01-22 Outpatient MERCEDEZ RUTH [id number] [place] 13:00:00 13:00:00 Seybol d 2022-01-22 2022-01-22 Outpatient MIRZAITEHRA MERCEDEZ RUTH [id number] [place] 00:00:00 00:00:00 DAVONTE WATTERS 2022-01-01 2022-01-01 Outpatient MERCEDEZ VALLEJO [id number] [place] 10:40:00 10:40:00 OLADAPO Seybol d 2022-01-01 2022-01-01 Outpatient MERCEDEZ RUTH [id number] [place] 10:35:00 10:35:00 Seybol d 2021-12-31 2021-12-31 Outpatient MERCEDEZ RUTH [id number] [place] 15:15:00 15:15:00 Seybol d 2021-12-16 2021-12-16 Outpatient MERCEDEZ VALLEJO [id number] [place] 13:50:00 13:50:00 OLADAPO Seybol d 2021-12-13 2021-12-13 Outpatient MERCEDEZ VALLEJO [id number] [place] 00:00:00 00:00:00 OLADAPO Seybol d 2021-12-06 2021-12-06 Outpatient MERCEDEZ DSOUZA [id number] [place] 00:00:00 00:00:00 VICK Seybol d 2021-12-04 2021-12-04 Outpatient MERCEDEZ RUTH [id number] [place] 10:40:00 10:40:00 Seybol d 2021-12-04 2021-12-04 Office Jarod Cotton [id number] [place] 09:30:00 10:00:00 Visit [facility] & 350.1.13.13 Seybold DIAGNOSTI [id number] [facility] [id number] 2021-11-25 2021-11-25 Outpatient MERCEDEZ DSOUZA [id number] [place] 16:00:00 16:00:00 VICK Seybol d 2021-11-20 2021-11-20 Telemedici YURY Dsouza [id number] [place] 15:45:00 15:56:33 ne [facility] [id number] Se ybold [id number] [id number] 2021-11-13 2021-11-13 Outpatient MERCEDEZ SCHWARZ [id number] [place] 00:00:00 00:00:00 LACHELLE Seybol d 2021-11-05 2021-11-05 Outpatient MERCEDEZ RUTH [id number] [place] 15:20:00 15:20:00 Seybol d 2021-11-05 2021-11-05 Outpatient MERCEDEZ RUTH [id number] [place] 14:40:00 14:40:00 Seybol d 2021-10-21 2021-10-21 Outpatient MERCEDEZ RUTH [id number] [place] 16:00:00 16:00:00 Seybol d 2021-10-21 2021-10-21 Outpatient MERCEDEZ RUTH [id number] [place] 15:00:00 15:00:00 Seybol d 2021-10-08 2021-10-08 Outpatient TRED45 MERCEDEZ RUTH [id number] [place] 15:45:00 15:45:00 Seybol d 2021-10-08 2021-10-08 Outpatient MIRZAITEHRA MERCEDEZ RUTH [id number] [place] 15:30:00 15:30:00 NEDAVONTE 2021-09-13 2021-09-13 Outpatient MERCEDEZ SCHWARZ [id number] [place] 15:30:00 15:30:00 LACHELLE Seybol d 2021-09-02 2021-09-02 Outpatient MERCEDEZ RUTH [id number] [place] 14:30:00 14:30:00 Seybol d 2021-09-02 2021-09-02 Office LESIA Schwarz [id number] [place] 14:00:00 14:20:00 Visit Lachelle [facility] & 350.1.13.13 Seybold DIAGNOSTI 1.2.7.2.686 [facility] [place] [id number] 2021-08-04 2021-08-04 Telemedici EDNACHRISTEL [id number] [id number] [place] 16:15:00 16:15:00 [facility] [id number] Se ybold [id number] [id number] 2021-08-04 2021-08-04 Outpatient MERCEDEZ GOLDSTEIN [id number] [place] 13:55:00 13:55:00 EVISIT Seybol d 2021-07-26 2021-07-26 Outpatient MERCEDEZ DSOUZA [id number] [place] 15:00:00 15:00:00 VICK Seybol d 2021-07-26 2021-07-26 Outpatient MERCEDEZ DSOUZA [id number] [place] 00:00:00 00:00:00 VICK Seybol d 2021-06-15 2021-06-15 Outpatient MERCEDEZ ATKINSON [id number] [place] 00:00:00 00:00:00 DONYALE Seybol d 2021-06-12 2021-06-12 Outpatient MERCEDEZ LYNN [id number] [place] 00:00:00 00:00:00 MONIQUE Seybol d 2021-06-11 2021-06-11 Outpatient MERCEDEZ LYNN [id number] [place] 00:00:00 00:00:00 MONIQUE Seybol d 2021-06-10 2021-06-10 Outpatient MERCEDEZ CUENCA [id number] [place] 15:00:00 15:00:00 FAYYAZ Seybol d 2021-06-09 2021-06-09 Outpatient MERCEDEZ CISNEROS [id number] [place] 00:00:00 00:00:00 ROCKY Seybol d 2021-06-03 2021-06-03 Outpatient CURTISMERCEDEZ SANCHEZ [id number] [place] 00:00:00 00:00:00 YARY Seybo ld 2021-06-03 2021-06-03 Outpatient MERCEDEZ DSOUZA [id number] [place] 00:00:00 00:00:00 VICK Seybol d 2021-06-03 2021-06-03 Outpatient MERCEDEZ DSOUZA [id number] [place] 00:00:00 00:00:00 VICK Seybol d 2021-06-03 2021-06-03 Outpatient MERCEDEZ LYNN [id number] [place] 00:00:00 00:00:00 MONIQUE Seybol d 2021-05-22 2021-05-22 Outpatient MIRZAPHILIP RUTH [id number] [place] 00:00:00 00:00:00 DAVONTE WATTERS 2021-05-21 2021-05-21 Outpatient ELO57-HRV MERCEDEZ RUTH [id number] [place] 08:50:00 08:50:00 Seybol d 2021-05-21 2021-05-21 Outpatient TESTINGMERCEDEZ [id number] [place] 08:30:00 08:30:00 [facility]-21 2021-05-21 Outpatient MERCEDEZ LYNN [id number] [place] 00:00:00 00:00:00 MONIQUE Seybol d 2021-05-21 2021-05-21 Outpatient MERCEDEZ LYNN [id number] [place] 00:00:00 00:00:00 MONIQUE Seybol d 2021-05-21 2021-05-21 Outpatient MERCEDEZ LYNN [id number] [place] 00:00:00 00:00:00 MONIQUE Seybol d 2021-05-20 2021-05-20 Outpatient MIRZAPHILIP RUTH [id number] [place] 00:00:00 00:00:00 DAVONTE WATTERS 2021-05-19 2021-05-19 Outpatient MERCEDEZ CUENCA [id number] [place] 00:00:00 00:00:00 FAYYAZ Seybol d 2021-05-17 2021-05-17 Outpatient MERCEDEZ LYNN [id number] [place] 15:30:00 15:30:00 MONIQUE Seybol d 2021-05-17 2021-05-17 Outpatient MERCEDEZ LYNN [id number] [place] 09:30:00 09:30:00 MONIQUE Seybol d 2021-05-16 2021-05-16 Outpatient MERCEDEZ LYNN [id number] [place] 00:00:00 00:00:00 MONIQUE Seybol d 2021-05-16 2021-05-16 Outpatient MERCEDEZ CUENCA [id number] [place] 00:00:00 00:00:00 FAYYAZ Seybol d 2021-05-11 2021-05-11 Outpatient MERCEDEZ CUENCA [id number] [place] 00:00:00 00:00:00 FAYYAZ Seybol d 2021-05-04 2021-05-04 Outpatient MERCEDEZ DSOUZA [id number] [place] 00:00:00 00:00:00 VICK Seybol d 2021-04-23 2021-04-23 Outpatient MIRZAITEHRA MERCEDEZ RUTH [id number] [place] 15:30:00 15:30:00 DAVONTE WATTERS 2021-04-22 2021-04-22 Outpatient MERCEDEZ RUTH [id number] [place] 00:00:00 00:00:00 Seybol d 2021-04-19 2021-04-19 Outpatient MERCEDEZ LYNN [id number] [place] 00:00:00 00:00:00 MONIQUE Seybol d 2021-04-19 2021-04-19 Outpatient MERCEDEZ LYNN [id number] [place] 00:00:00 00:00:00 MONIQUE Seybol d 2021-04-18 2021-04-18 Outpatient MERCEDEZ RUTH [id number] [place] 15:40:00 15:40:00 Seybol d 2021-04-18 2021-04-18 Outpatient MERCEDEZ RUTH [id number] [place] 15:20:00 15:20:00 Seybol d 2021-04-17 2021-04-17 Outpatient DESTINEE MERCEDEZ RUHT [id number] [place] 15:30:00 15:30:00 DAVONTE WATTERS 2021-04-16 2021-04-16 Outpatient SHANE MERCEDEZ RUTH [id number] [place] 00:00:00 00:00:00 MONIQUE Seybol d 2021-04-15 2021-04-15 Outpatient GREYKishore MERCEDEZ RUTH [id number] [place] 00:00:00 00:00:00 DAVONTE WATTERS 2021-04-12 2021-04-12 Outpatient MERCEDEZ LYNN [id number] [place] 16:45:00 16:45:00 MONIQUE Seybol d 2021-04-12 2021-04-12 Outpatient MERCEDEZ LYNN [id number] [place] 00:00:00 00:00:00 MONIQUE Seybol d 2021-04-12 2021-04-12 Outpatient MERCEDEZ LYNN [id number] [place] 00:00:00 00:00:00 MONIQUE Seybol d 2021-04-11 2021-04-11 Outpatient MERCEDEZ CUENCA [id number] [place] 00:00:00 00:00:00 SHUKRI Seybol d 2021-04-09 2021-04-09 Outpatient MERCEDEZ CISNEROS [id number] [place] 00:00:00 00:00:00 ROCKY Seybol d 2021-04-08 2021-04-08 Office LESIA Cuenca [id number] [place] 15:30:00 16:00:00 Visit Shukri HERNANDEZ & 350.1.13.13 Seybold DIAGNOSTI [id number] [facility] [id number] 2021-04-03 2021-04-03 Outpatient MERCEDEZ LYNN [id number] [place] 00:00:00 00:00:00 MONIQUE Seybol d 2021-04-03 2021-04-03 Outpatient MERCEDEZ LYNN [id number] [place] 00:00:00 00:00:00 MONIQUE Seybol d 2021-04-02 2021-04-02 Outpatient MERCEDEZ CISNEROS [id number] [place] 00:00:00 00:00:00 ROCKY Seybol d 2021-03-27 2021-03-27 Outpatient MERCEDEZ CUENCA [id number] [place] 00:00:00 00:00:00 FAYYAZ Seybol d 2021-03-26 2021-03-26 Outpatient LIANNAMERCEDEZ WAHL [id number] [place] 00:00:00 00:00:00 VICK Seybol d 2021-03-26 2021-03-26 Outpatient MERCEDEZ CUENCA [id number] [place] 00:00:00 00:00:00 FAYYAZ Seybol d 2021-03-20 2021-03-20 Outpatient MERCEDEZ DSOUZA [id number] [place] 00:00:00 00:00:00 VICK Seybol d 2021-03-15 2021-03-15 Outpatient CURTISMERCEDEZ SANCHEZ [id number] [place] 00:00:00 00:00:00 YARY Seybo ld 2021-03-15 2021-03-15 Outpatient MERCEDEZ ATKINSON [id number] [place] 00:00:00 00:00:00 DONYALE Seybol d 2021-03-14 2021-03-14 Outpatient MERCEDEZ VIERA [id number] [place] 14:45:00 14:45:00 KEMAL Seybo ld 2021-03-11 2021-03-11 Outpatient MERCEDEZ DSOUZA [id number] [place] 15:30:00 15:30:00 VICK Seybol d 2021-03-11 2021-03-11 Outpatient MERCEDEZ SCHWARZ [id number] [place] 15:00:00 15:00:00 LACHELLE Seybol d 2021-03-10 2021-03-10 Outpatient MERCEDEZ CISNEROS [id number] [place] 00:00:00 00:00:00 ROCKY Seybol d 2021-03-07 2021-03-07 Outpatient MERCEDEZ LYNN [id number] [place] 00:00:00 00:00:00 MONIQUE Seybol d 2021-03-05 2021-03-05 Outpatient MERCEDEZ CISNEROS [id number] [place] 00:00:00 00:00:00 ROCKY Seybol d 2021-02-20 2021-02-20 Outpatient MERCEDEZ DSOUZA [id number] [place] 00:00:00 00:00:00 VICK Seybol d 2021-02-20 2021-02-20 Outpatient DESTINEE RUTH [id number] [place] 00:00:00 00:00:00 DAVONTE WATTERS George tapia 2021 2021 Outpatient MERCEDEZ DSOUZA [id number] [place] 00:00:00 00:00:00 VICK Seybol d 2021-02-15 2021-02-15 Outpatient DESTINEE RUTH [id number] [place] 00:00:00 00:00:00 DAVONTE WATTERS willie 2021-02-11 2021-02-11 Office Shane LESIA BEAUCHAMP [id number] [place] 14:43:26 15:13:26 Visit Monique HERNANDEZ & [id number] Sey[facility] DIAGNOSTI [id number] [facility] [id number] 2021-02-08 2021-02-08 Outpatient MERCEDEZ LYNN [id number] [place] 14:00:00 14:00:00 MONIQUE Seybol d 2021-02-08 2021-02-08 Outpatient MERCEDEZ LYNN [id number] [place] 13:30:00 13:30:00 MONIQUE Seybol d 2021-02-08 2021-02-08 Outpatient MERCEDEZ SCHWARZ [id number] [place] 11:40:00 11:40:00 LACHELLE Seybol d 2021-02-04 2021-02-04 Outpatient LAB45 [facility]EZ RUTH [id number] [place] 17:00:00 17:00:00 Seybol d 2021-01-23 2021-01-23 Outpatient LIANNA, MERCEDEZ RUTH [id number] [place] 00:00:00 00:00:00 VICK Seybol d 2021-01-08 2021-01-08 Outpatient DANIELLA [facility] RUTH [id number] [place] 00:00:00 00:00:00 LACHELLE Seybol d 2021-01-06 2021-01-06 Outpatient AMELIA [facility] RUTH [id number] [place] 00:00:00 00:00:00 ROCKY Seybol d 2021-01-03 2021-01-03 Outpatient AMELIA [facility] RUTH [id number] [place] 00:00:00 00:00:00 ROCKY Seybol d 2020-12-28 2020-12-28 Outpatient MERCEDEZ RUTH [id number] [place] 15:15:00 15:15:00 Seybol d 2020-12-28 2020-12-28 Office LESIA Schwarz [id number] [place] 14:09:20 14:29:20 Visit Lachelle Unger [facility] & 350...13 Seybold DIAGNOSTI [id number] [facility] [id number] 2020-12-11 2020-12-11 Outpatient AMELIA, MERCEDEZ RUTH [id number] [place] 00:00:00 00:00:00 ROCKY Seybol d 2020-12-10 2020-12-10 Outpatient MERCEDEZ RUTH [id number] [place] 15:00:00 15:00:00 Seybol d 2020-12-10 2020-12-10 Outpatient MERCEDEZ RUTH [id number] [place] 13:00:00 13:00:00 Seybol d 2020-11-05 2020-11-05 Outpatient MERCEDEZ DSOUZA [id number] [place] 15:30:00 15:30:00 VICK Seybol d 2020-10-11 2020-10-11 Outpatient AMELIA, MERCEDEZ RUTH [id number] [place] 15:45:00 15:45:00 ROCKY Seybol d 2020-10-10 2020-10-10 Outpatient DESTINEE MERCEDEZ MER[facility]Z [id number] [place] 15:30:00 15:30:00 DAVONTE WATTERS 2013-02-02 2013-02-05 Outpatient MIGUEL EMERY TELE [id number] [place] 03:02:00 19:03:00 [facility] Results Test Description Test Time Test Comments [...] code = 2795) RAD, ABDOMEN/KUB 1 VIEW [id number] 02:40:00Reason for exam:->EMESISReason for exam:->ABDOMINAL PAINFINAL REPORT [...] MDReport Verified Date/Time: 05/28/2017 02:40:49 Reading Location: [address] TransitionalReading Room [facility] [id number] 01:47:00 Test Item Value Reference Range Interpretation [...] S NOT APPLICABLE FOR DIALYSIS PATIEN TS. [id number] 01:45:00 Test Item Value Reference Range Interpretation Comments LIPASE (BEAKER) (test code = 749) 17 U/L 6-51 [id number] 01:41:00 Test Item Value Reference Range Interpretation Comments PHOSPHORUS (BEAKER) (test code = 2.3 mg/dL 2.5-4.5 L 604) [id number] 01:36:00 Test Item Value Reference Range Interpretation Comments MAGNESIUM (BEAKER) (test code = 2.0 mg/dL 1.5-3.0 627) [id number] 01:36:00 Test Item Value Reference Range Interpretation Comments AMYLASE (BEAKER) (test code = 349) 52 U/L 30-110 CBC W/PLT COUNT & AUTO [id number] 01:25:00 Test Item Value Reference Range Interpretation [...]
[2023-01-26] MEDS ORDERED: ONDANSETRON 4 MG/2 ML VIAL ONE (16:46)
[2023-01-26] MEDS ORDERED: NA CHLORIDE 0.9% 1,000 ML ONE (16:46)
[2023-01-26 16:55] LABS: Lymphocytes % 24.4 % (15.3-44.8); MCV 85.8 fL (80-100); MPV 7.5 fL (7.6-11.3); Platelets 322 thou/uL (152-406); RBC Red Blood Cell Count 4.44 M/uL (3.86-4.86)
[2023-01-26 17:06] LABS: Specific Gravity 1.009 (1.005-1.030); Urine Bacteria <20 /HPF (<20); Urine Bilirubin NEGATIVE (Negative); Urine Blood Negative (Negative); Urine Clarity Clear (Clear); Urine Color Light-Yellow (Yellow); Urine Glucose NEGATIVE (Negative); Urine Protein NEGATIVE (Negative); Urine RBC <5 /HPF (None Seen); Urine Urobilinogen Normal (Normal); Urine pH 6.5 (5.0-7.0)
[2023-01-26 17:15] LABS: Albumin 4.2 g/dL (3.4-5.0); Bilirubin Total 0.5 mg/dL (0.2-1.0); Potassium 3.6 mEq/L (3.5-5.1); Protein, Total 8.1 g/dL (6.4-8.2)
--- NOTE | 2023-01-26 18:18 | ER ---
Nurse's Notes [facility] Name: Kayla Tamayo Age: 77 yrs Sex: Female : 1945 Arrival Date: 01/26/2023 Time: 15:37 Bed 8 Private MD: Diagnosis: Diarrhea, unspecified Presentation: 01/26 15:53 Chief complaint: Patient states: she has had diarrhea for 3 to 4 days now. patient also ap3 reports frequent urination. Coronavirus screen: At this time, the client does not indicate any symptoms associated with coronavirus-19. Ebola Screen: No symptoms or risks identified at this time. Initial Sepsis Screen: Does the patient meet any 2 criteria? No. Patient's initial sepsis screen is negative. Does the patient have a suspected source of infection? Yes: Dysuria/Frequency/Urgency/UTI. Risk Assessment: Do you want to hurt yourself or someone else? Patient reports no desire to harm self or others. Onset of symptoms was January 22, 2023. 15:53 Method Of Arrival: Ambulatory ap3 15:53 Acuity: ESTRELLA 3 ap3 Triage Assessment: 15:56 General: Appears in no apparent distress. Behavior is calm, cooperative, appropriate ap3 for age. Pain: Denies pain. Neuro: Level of Consciousness is awake, alert, obeys commands, Oriented to person, place, time. Cardiovascular: Patient's skin is warm and dry. Respiratory: Airway is patent Respiratory effort is even, unlabored, Respiratory pattern is regular, symmetrical. GI: Reports diarrhea, Patient currently denies abdominal pain. : Reports urinary frequency. 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 - Social history:: Smoking status: Patient denies any tobacco usage or history of. Screenin:57 [facility] ED Fall Risk Assessment (Adult) History of falling in the last 3 months, ap3 including since admission No falls in past 3 months (0 pts). Abuse screen: Denies threats or abuse. Nutritional screening: No deficits noted. Tuberculosis screening: No symptoms or risk factors identified. Assessment: 16:27 Reassessment: Pt ambulated to bathroom with steady gate. jl7 18:15 Reassessment: Dr. Jenkins at bedside discussing results and POC. jl7 18:30 Reassessment: Patient and/or family updated on plan of care and expected duration. Pain mb9 level reassessed. Patient is alert, oriented x 3, equal unlabored respirations, skin warm/dry/pink. Patient states feeling better. Patient states symptoms have improved. Vital Signs: 15:53 BP 155 / 87; Pulse 72; Resp 18; Temp 98.4; Pulse Ox 98% on R/A; Weight 58.97 kg; ap3 17:48 BP 159 / 60; Pulse 62; Resp 15; Pulse Ox 100% ; jl7 ED Course: 15:38 Patient arrived in ED. rg4 15:55 Triage completed. ap3 15:57 Adrian Jenkins MD is Attending Physician. ec2 15:57 Arm band placed on right wrist. ap3 16:27 Yulia Herrmann, BEAR is Primary Nurse. jl7 16:40 Initial lab(s) drawn, by me, sent to lab. Inserted saline lock: 20 gauge in right jl7 antecubital area, using aseptic technique. Blood collected. 17:49 Patient has correct armband on for positive identification. Provided Education on: use jl7 of call [place]. 18:45 No provider procedures requiring assistance completed. IV discontinued, intact, mb9 bleeding controlled, No redness/swelling at site. Pressure dressing applied. Administered Medications: 16:30 Drug: NS 0.9% IV 1000 ml IV at 1 bolus Per protocol; 1000 mL bolus Route: IV; Rate: 1 jl7 bolus; Site: right antecubital; 17:48 Not Given (Patient Refused): ondansetron 4 mg IVP once; over 2 minutes jl7 Medication: 17:49 VIS not applicable for this client. jl7 Outcome: 18:17 Discharge ordered by . ec2 18:44 Discharged to home ambulatory, mb9 18:44 Condition: stable 18:44 Discharge instructions given to patient, Instructed on discharge instructions, follow up and referral plans. Demonstrated understanding of instructions, follow-up care, 18:45 Patient left the ED. mb9 Signatures: Joy Monique4 Yulia Herrmann RN RN jl7 Adamaris Freeman RN RN ap3 Keysha Mock RN RN mb9 Adrian Jenkins MD MD ec2
--- NOTE | 2023-01-26 18:18 | EDPHYS ---
Physician Documentation [facility] Name: Kayla Tamayo Age: 77 yrs Sex: Female : 1945 Arrival Date: 01/26/2023 Time: 15:37 Bed 8 Private MD: ED Physician Adrian Jenkins HPI: 01/26 16:15 This 77 yrs old Female presents to ER via Ambulatory with complaints of ec2 Diarrhea. 16:15 Patient arrives today due to concern for diarrhea. Patient states that she been having ec2 loose stool for the past 4 days, states up to 15 times per day. Patient reports no issues with p.o. intake, no nausea or vomiting or abdominal pain. Does report increased urinary frequency. Patient reports otherwise surgical history pertinent for hysterectomy and cholecystectomy.. 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 - Social history:: Smoking status: Patient denies any tobacco usage or history of. ROS: 16:15 Constitutional: as per hpi ec2 Exam: 16:15 Constitutional: GEN: NAD Head: atraumatic Eyes: EOMI Ears: External ears are ec2 normal. CV: regular rate LUNGS: no respiratory distress ABD: non-distended, soft, nontender, no guarding, not rigid SKIN: no evidence of rashes MSK: no evidence of trauma NEURO: moves all extremities equally Vital Signs: 15:53 BP 155 / 87; Pulse 72; Resp 18; Temp 98.4; Pulse Ox 98% on R/A; Weight 58.97 kg; ap3 17:48 BP 159 / 60; Pulse 62; Resp 15; Pulse Ox 100% ; jl7 MDM: 15:57 Patient medically screened. ec2 16:15 ED course: Patient arrives today due to concern for diarrhea. Examination remarkable ec2 for well-appearing nontoxic individual is otherwise in no acute distress with a generally benign abdomen. Will obtain lab work, urine studies, fecal testing, treat the patient with crystalloid. Currently considering dehydration/JENNY, electrolyte disturbances, infectious diarrhea, viral process.. 17:38 ED course: Metabolic profile is reassuring with appropriate electrolytes and renal ec2 function. Lipase is minimally elevated above the upper limit, CBC is reassuring without marked leukocytosis, urine is noninfectious appearing. . 18:16 ED course: On reassessment patient is well-appearing and in no acute distress. Patient ec2 unable to provide stool specimen, will defer testing for this, will defer antibiotic coverage. Patient discharged home, return precautions given.. 18:17 Data reviewed: vital signs. ec2 01/26 16:14 Order name: CBC with Diff; Complete Time: 17:07 ec2 01/26 16:14 Order name: CMP; Complete Time: 17:38 ec2 01/26 16:14 Order name: Lipase; Complete Time: 17:38 ec2 01/26 16:14 Order name: Urinalysis w/ reflexes; Complete Time: 17:38 ec2 01/26 16:14 Order name: IV Saline Lock; Complete Time: 17:47 ec2 01/26 16:14 Order name: Labs collected and sent; Complete Time: 17:47 ec2 Administered Medications: 16:30 Drug: NS 0.9% IV 1000 ml IV at 1 bolus Per protocol; 1000 mL bolus Route: IV; Rate: 1 jl7 bolus; Site: right antecubital; 17:48 Not Given (Patient Refused): ondansetron 4 mg IVP once; over 2 minutes jl7 Disposition Summary: 01/26/23 18:17 Discharge Ordered Notes: Location: Home ec2 Condition: Stable ec2 Diagnosis - Diarrhea, unspecified ec2 Discharge Instructions: - Discharge Summary Sheet ec2 - Diarrhea, Adult ec2 Forms: - Medication Reconciliation Form ec2 - Thank You Letter ec2 - Antibiotic Education ec2 - Prescription Opioid Use ec2 - Patient Portal Instructions ec2 - Leadership Thank You Letter ec2 Signatures: Dispatcher [employer] Yulia Orellana RN RN jl7 Adamaris Freeman RN RN ap3 Adrian Jenkins MD MD ec2
[2023-01-26 18:54] VITALS: TEMP 98.4
[2023-01-26 19:00] VITALS: BP 159/60; O2SAT 100
== END 2023-01-26 18:45 | disposition home or self-care (01) ==
LOC: ER 15:37
DX: R19.7 Diarrhea, unspecified (principal); I10 Essential (primary) hypertension; Z88.0 Allergy status to penicillin; Z88.2 Allergy status to sulfonamides; Z88.5 Allergy status to narcotic agent; Z88.8 Allergy status to other drugs, medicaments and biological substances; Z28.310 Unvaccinated for COVID-19
CPT/HCPCS: 85025; 81001; 36415; 83690; 80053; 99284; J2405; J7030

== ENCOUNTER 2023-04-22 02:29 | Inpatient (IN) | payer OTHER ==
[2023-04-22 06:41] LABS: Albumin 3.4 g/dL (3.4-5.0); Bilirubin Total 0.3 mg/dL (0.2-1.0); Potassium 3.6 mEq/L (3.5-5.1); Protein, Total 7.3 g/dL (6.4-8.2); Troponin High Sensitivity 15.5 pg/mL (<58.9)
[2023-04-22 06:46] LABS: Specific Gravity 1.025 (1.005-1.030); Urine Bilirubin NEGATIVE (Negative); Urine Blood Negative (Negative); Urine Clarity Clear (Clear); Urine Color Colorless (Yellow); Urine Glucose NEGATIVE (Negative); Urine Protein NEGATIVE (Negative); Urine Urobilinogen Normal (Normal)
[2023-04-22 06:46] LABS: Absolute Lymphocytes (CBC) 1.4 K/uL (0.7-4.9); Hematocrit 36.7 % (36.0-45.0); Lymphocytes % 16.8 % (15.3-44.8); MCV 85.3 fL (80-100); MPV 7.7 fL (7.6-11.3); Platelets 296 thou/uL (152-406)
--- NOTE | 2023-04-22 07:00 | EDPHYS ---
Physician Documentation [facility] Name: Kayla Tamayo Age: 78 yrs Sex: Female : 1945 Arrival Date: 04/22/2023 Time: 02:29 Bed 14 Private MD: ED Physician Miguel Reyes HPI: 04/22 06:59 This 78 yrs old Female presents to ER via EMS with complaints of Abdominal sp4 Pain, Vomiting. 06:59 28-year-old female presents with acute moderate abdominal pain worsening since 4 AM sp4 today. Patient developed profuse vomiting and presents with EMS with profuse emesis. Patient has history of cholecystectomy, hysterectomy as well. Moderate distress secondary to vomiting and pain on arrival.. Home medications include acyclovir, alprazolam, amlodipine besylate, aspirin, atorvastatin, chlorhexidine, citalopram, clobetasol, clopidogrel, diclofenac, ezetimibe, fluticasone, [place] 10 as needed, ibuprofen, levothyroxine, lisinopril, pantoprazole, prednisone, pregabalin, ropinirole, tizanidine, tramadol, and trazodone. . Historical: - Allergies: 02:49 Codeine; jj7 02:49 LEFLUNOMIDE; jj7 02:49 Morphine; jj7 02:49 oxybutynin; jj7 02:49 PENICILLINS; jj7 02:49 Salogens; jj7 02:49 Sulfa (Sulfonamide Antibiotics); jj7 - PSHx: 02:49 Cholecystectomy; Total abdominal hysterectomy; jj7 - Family history:: not pertinent. ROS: 06:59 Constitutional: Negative for fever, chills, and weight loss, Eyes: Negative for injury, sp4 pain, redness, and discharge, ENT: Negative for injury, pain, and discharge, Neck: Negative for injury, pain, and swelling, Cardiovascular: Negative for chest pain, palpitations, and edema, Abdomen/GI: Positive abdominal pain, positive vomiting 06:59 All other systems are negative, Exam: 07:03 Constitutional: This is a well developed, well nourished patient who is awake, alert, sp4 profusely vomiting on arrival Head/Face: Normocephalic, atraumatic. Eyes: Pupils equal round and reactive to light, extra-ocular motions intact. Lids and lashes normal. Conjunctiva and sclera are not injected. Cornea within normal limits. Periorbital areas with no swelling, redness, or edema. ENT: Nares patent. No nasal discharge, no septal abnormalities noted. Tympanic membranes are normal and external auditory canals are clear. Oropharynx with no redness, swelling, or masses, exudates, or evidence of obstruction, uvula midline. Mucous membranes moist. Neck: Trachea midline, no thyromegaly or masses palpated, and no cervical lymphadenopathy. Supple, full range of motion without nuchal rigidity, or vertebral point tenderness. Chest/axilla: Normal chest wall appearance and motion. Nontender with no deformity. No lesions are appreciated. Cardiovascular: Regular rate and rhythm with a normal S1 and S2. No gallops, murmurs, or rubs. Normal PMI, no JVD. No pulse deficits. Respiratory: Lungs have equal breath sounds bilaterally, clear to auscultation and percussion. No rales, rhonchi or wheezes noted. No increased work of breathing, no retractions or nasal flaring. Abdomen/GI: Soft, No distension or tympany. No guarding or rebound. Positive diffuse abdominal tenderness Back: No spinal tenderness. No costovertebral tenderness. Skin: Warm, dry with normal turgor. Normal color with no rashes, no lesions, and no evidence of cellulitis. MS/ Extremity: Pulses equal, no cyanosis. Neurovascular intact. Full, normal range of motion. Neuro: Awake and alert, GCS 15, oriented to person, place, time, and situation. Cranial nerves II-XII grossly intact. Motor strength 5/5 in all extremities. Sensory grossly intact. Psych: Awake, alert, with orientation to person, place and time. Behavior, mood, and affect are within normal limits 07:03 ECG was reviewed by the Attending Physician. EKG at 0305 reveals sinus bradycardia at the rate of 53. Vital Signs: 02:46 BP 158 / 71; Pulse 55; Resp 17; Temp 97.8; Pulse Ox 98% ; Weight 58.97 kg; Height 5 ft. jj7 2 in. ; 03:49 BP 178 / 62; Pulse 55; Resp 17; Pulse Ox 98% ; jj7 05:00 BP 160 / 57; Pulse 65; Resp 17; Pulse Ox 96% ; j7 06:00 BP 147 / 43; Pulse 69; Resp 18; Pulse Ox 96% ; j7 07:14 BP 133 / 107; Pulse 65; Resp 18; Temp 95.0; j7 02:46 Body Mass Index 23.78 (58.97 kg, 157.48 cm) [facility] MDM: 02:46 Patient medically screened. 4 07:06 Differential diagnosis: Nonspecific abd pain, gastritis, pancreatitis, diverticulitis, sp4 viral gastroenteritis, gastroenteritis. Data reviewed: vital signs, nurses notes, EMS record, lab test result(s), electrolytes, Flu: positive EKG, radiologic studies, CT scan. Consideration of Admission/Observation Patient was admitted/placed on observation. Escalation of care including admission/observation considered. Management of patient was discussed with the following: Hospitalist: Admission team . Investment Director: Carmina MARQUEZ . ED course: IMPRESSION: 1. In the right lower quadrant/pelvis, there are nondilated mildly thickened small bowel loops with mesenteric edema raising suspicion for internal hernia. No pneumatosis. Mildly dilated small bowel loops with air-fluid levels in the central abdomen, suggesting ileus versus partial low-grade small bowel obstruction. 2. Cholecystectomy. Biliary dilatation is present without choledocholithiasis. 3. Additional non-emergent findings as above. . 04/22 02:46 Order name: CBC with Diff; Complete Time: 06:51 04/22 02:46 Order name: CMP; Complete Time: 06:51 04/22 02:46 Order name: Lipase; Complete Time: 06:51 04/22 02:46 Order name: Urinalysis w/ reflexes; Complete Time: 06:51 04/22 02:46 Order name: COVID-19 SARS RT PCR; Complete Time: 06:51 04/22 02:46 Order name: Influenza Screen (a \T\ B); Complete Time: 06:51 04/22 02:47 Order name: Troponin High Sensitivity; Complete Time: 06:51 04/22 02:47 Order name: BNP; Complete Time: 06:51 04/22 02:46 Order name: CT Abd/Pelvis - IV Contrast Only 4 04/22 08:39 Order name: XRAY Chest (1 view) 9 04/22 10:22 Order name: RAD EDGA 04/22 02:47 Order name: EKG; Complete Time: 06:11 sp4 04/22 07:08 Order name: EKG Electrocardiogram [facility] 04/22 07:18 Order name: CONS Physician Consult [facility] 04/22 02:46 Order name: IV Saline Lock; Complete Time: 03:20 sp4 04/22 02:46 Order name: Labs collected and sent; Complete Time: 03:20 sp4 04/22 02:47 Order name: EKG - Nurse/Tech; Complete Time: 03:20 sp4 04/22 06:54 Order name: NG Tube; Complete Time: 08:38 sp4 EC:03 Rate is 53 beats/min. Rhythm is regular, Sinus bradycardia. QRS [place] is Normal. [place] sp4 interval is normal. QRS interval is normal. QT interval is normal. No Q waves. T waves are Normal. No ST changes noted. Clinical impression: No evidence of ischemia. Interpreted by me. Reviewed by me. Administered Medications: 03:20 Drug: Famotidine IVP 20 mg IVP once; dilute with 10 mL 0.9% NaCl; give over 2 minutes jj7 Route: IVP; Site: right antecubital; 03:20 Drug: NS 0.9% IV 500 ml IV at bolus once Route: IV; Rate: bolus; Site: right 7 antecubital; 04:02 Follow up: IV Status: Completed infusion jj7 03:21 Drug: fentaNYL (PF) IVP 50 mcg IVP once Route: IVP; Site: right antecubital; jj7 03:45 Follow up: Response: Pain is decreased jj7 03:21 Drug: metoCLOPramide IVP 10 mg IVP once; over 1 to 2 minutes Route: IVP; Site: right jj7 antecubital; 04:02 Drug: NS 0.9% IV 1000 ml IV at 125 ml/hr continuous Route: IV; Rate: 125 ml/hr; Site: j right antecubital; 04:17 Drug: fentaNYL (PF) IVP 50 mcg IVP once Route: IVP; Site: right antecubital; jj7 04:30 Follow up: Response: Pain is unchanged, physician notified jj7 05:15 Drug: HYDROmorphone IVP 1 mg IVP once Route: IVP; Site: right antecubital; jj7 05:51 Follow up: Response: Marked relief of symptoms; Pain is increased jj7 07:14 Drug: D5-NS IV 1000 ml IV at 125 ml/hr continuous Route: IV; Rate: 125 ml/hr; Site: jj7 right antecubital; 07:14 Drug: HYDROmorphone IVP 0.5 mg IVP once Route: IVP; Site: right antecubital; jj7 07:14 Drug: Ondansetron IVP 4 mg IVP once; over 2 minutes Route: IVP; Site: right antecubital;jj7 Disposition Summary: 04/22/23 06:59 Hospitalization Ordered Notes: Hospitalization Status: Inpatient Admission sp4 Provider: Celestine Akbar spDiana Condition: Stable sp4 Problem: new sp4 Symptoms: have improved sp4 Bed/Room Type: Standard sp4 Location: Telemetry/MedSurg (Inpatient)(04/22/23 14:55) bd Room Assignment: 222(04/22/23 14:55) bd Diagnosis - Acute small bowel obstruction, acute ileus, acute influenza B, intractable vomiting sp4 - Influenza acute sp4 Forms: - Medication Reconciliation Form sp4 - SBAR form sp4 - Leadership Thank You Letter sp4 Signatures: Dispatcher [employer] Jackeline Daniel Juwairiyah RN RN jj7 Miguel Reyes MD MD sp4 Corrections: (The following items were deleted from the chart) 07:44 06:59 Telemetry/MedSurg (Inpatient) sp4 bd 07:44 06:59 sp4 bd 14:55 07:44 [facility] ER HOLD bd bd 14:55 07:44 ERHOLD- bd bd
--- NOTE | 2023-04-22 07:00 | ER ---
Nurse's Notes [facility] Name: Kayla Tamayo Age: 78 yrs Sex: Female : 1945 Arrival Date: 04/22/2023 Time: 02:29 Bed 14 Private MD: Diagnosis: Acute small bowel obstruction, acute ileus, acute influenza B, intractable vomiting;Influenza acute Presentation: 04/22 02:46 Chief complaint: Patient states: ABD PAIN,N/V STARTED AT 2300. Coronavirus screen: At jj7 this time, the client does not indicate any symptoms associated with coronavirus-19. Ebola Screen: No symptoms or risks identified at this time. Initial Sepsis Screen: Does the patient meet any 2 criteria? No. Patient's initial sepsis screen is negative. Does the patient have a suspected source of infection? No. Patient's initial sepsis screen is negative. Risk Assessment: Do you want to hurt yourself or someone else?. Risk Assessment: Do you want to hurt yourself or someone else? Patient reports no desire to harm self or others. Onset of symptoms was April 21, 2023 at 23:00. 02:46 Method Of Arrival: EMS: [facility] jj7 02:46 Acuity: ESTRELLA 3 jj7 Triage Assessment: 02:49 General: Appears in no apparent distress. uncomfortable, Behavior is calm, cooperative, jj7 appropriate for age. Pain: Complains of pain in abdomen. GI: Pt is actively vomiting bile, Reports lower abdominal pain, upper abdominal pain, nausea, vomiting. Historical: - Allergies: 02:49 Codeine; jj7 02:49 LEFLUNOMIDE; jj7 02:49 Morphine; jj7 02:49 oxybutynin; jj7 02:49 PENICILLINS; jj7 02:49 Salogens; jj7 02:49 Sulfa (Sulfonamide Antibiotics); jj7 - PSHx: 02:49 Cholecystectomy; Total abdominal hysterectomy; jj7 - Family history:: not pertinent. Screenin:17 [facility] ED Fall Risk Assessment (Adult) History of falling in the last 3 months, jj7 including since admission No falls in past 3 months (0 pts) Confusion or Disorientation No (0 pts) Intoxicated or Sedated No (0 pts) Impaired Gait No (0 pts) Mobility Assist Device Used No (0 pt) Altered Elimination No (0 pt) Score/Fall Risk Level 0 - 2 = Low Risk Oriented to surroundings, Maintained a safe environment, Assessed \T\ reinforced patient's understanding of fall precautions. Abuse screen: Denies threats or abuse. Nutritional screening: No deficits noted. Tuberculosis screening: No symptoms or risk factors identified. Assessment: 02:46 Reassessment: SEE TRIAGE ASSESSMENT. jj7 09:00 Reassessment: See [facility] for further charting. mb9 Vital Signs: 02:46 BP 158 / 71; Pulse 55; Resp 17; Temp 97.8; Pulse Ox 98% ; Weight 58.97 kg; Height 5 ft. jj7 2 in. ; 03:49 BP 178 / 62; Pulse 55; Resp 17; Pulse Ox 98% ; jj7 05:00 BP 160 / 57; Pulse 65; Resp 17; Pulse Ox 96% ; jj7 06:00 BP 147 / 43; Pulse 69; Resp 18; Pulse Ox 96% ; jj7 07:14 BP 133 / 107; Pulse 65; Resp 18; Temp 95.0; jj7 02:46 Body Mass Index 23.78 (58.97 kg, 157.48 cm) j7 ED Course: 02:39 Patient arrived in ED. gm2 02:40 Placed in gown. Bed in low position. Call light in reach. Side rails up X 1. Adult w/ jj7 patient. 02:45 Miguel Reyes MD is Attending Physician. sp4 02:49 Triage completed. jj7 02:49 Arm band placed on right wrist. jj7 02:51 Warm blanket given. jj7 02:51 Maintain EMS IV. Dressing intact. Good blood return noted. Site clean \T\ dry. Gauge \T\ jj 7 site: 20G RIGHT AC. 03:44 Imelda Anders RN is Primary Nurse. jj7 06:16 CT Abd/Pelvis - IV Contrast Only In Process Unspecified. EDMS 06:40 Urinalysis w/ reflexes Sent. jj7 06:58 Celestine Akbar is Hospitalizing Provider. sp4 08:38 NGT: inserted 16 Fr. via left nare. verified placement of air over stomach, verified mb9 return of gastric contents, Placement verified by X-ray, to intermittent suction. Returned gastric contents. Patient tolerated well. 12:02 Patient admitted, IV remains in place. mb9 Administered Medications: 03:20 Drug: Famotidine IVP 20 mg IVP once; dilute with 10 mL 0.9% NaCl; give over 2 minutes jj7 Route: IVP; Site: right antecubital; 03:20 Drug: NS 0.9% IV 500 ml IV at bolus once Route: IV; Rate: bolus; Site: right j7 antecubital; 04:02 Follow up: IV Status: Completed infusion jj7 03:21 Drug: fentaNYL (PF) IVP 50 mcg IVP once Route: IVP; Site: right antecubital; jj7 03:45 Follow up: Response: Pain is decreased jj7 03:21 Drug: metoCLOPramide IVP 10 mg IVP once; over 1 to 2 minutes Route: IVP; Site: right [facility] antecubital; 04:02 Drug: NS 0.9% IV 1000 ml IV at 125 ml/hr continuous Route: IV; Rate: 125 ml/hr; Site: j7 right antecubital; 04:17 Drug: fentaNYL (PF) IVP 50 mcg IVP once Route: IVP; Site: right antecubital; jj7 04:30 Follow up: Response: Pain is unchanged, physician notified jj7 05:15 Drug: HYDROmorphone IVP 1 mg IVP once Route: IVP; Site: right antecubital; jj7 05:51 Follow up: Response: Marked relief of symptoms; Pain is increased jj7 07:14 Drug: D5-NS IV 1000 ml IV at 125 ml/hr continuous Route: IV; Rate: 125 ml/hr; Site: j7 right antecubital; 07:14 Drug: HYDROmorphone IVP 0.5 mg IVP once Route: IVP; Site: right antecubital; jj7 07:14 Drug: Ondansetron IVP 4 mg IVP once; over 2 minutes Route: IVP; Site: right antecubital;jj7 Medication: 15:46 VIS not applicable for this client. mb9 Outcome: 06:59 Decision to Hospitalize by Provider. sp4 15:45 Admitted to Med/surg via wheelchair, room 222, with chart, Report called to Jayy finn 15:45 Condition: stable 16:02 Patient left the ED. mb9 Signatures: Dispatcher [employer] Imelda Arredondo RN RN jj7 Nish, Keysha Carrasco RN RN mb9 Miguel Reyes MD MD sp4 Alejandrina Duran 2
[2023-04-22] MEDS ORDERED: HYDROMORPHONE HCL 0.5 MG/0.5 ML INJ ONE ×2 (07:07→09:30)
[2023-04-22] MEDS ORDERED: D5 0.45 NS 0 ML IV ONE (07:08)
[2023-04-22] MEDS ORDERED: ONDANSETRON 4 MG/2 ML VIAL ONE ×2 (07:08→09:30)
[2023-04-22] MEDS ORDERED: D5 0.9 NS 1,000 ML IV ONE (07:10)
--- NOTE | 2023-04-22 07:15 | P.HP ---
Certification for Inpatient Patient admitted to: Inpatient With expected LOS: <2 Midnights Practitioner: I am a practitioner with admitting privileges, knowledge of patient current condition, hospital course, and medical plan of care. Services: Services provided to patient in accordance with Admission requirements found in Title 42 Section 412.3 of the Code of Federal Regulations Patient History Date of Service: 04/22/23 Reason for admission: Small bowel obstruction History of Present Illness: 78-year-old female with a past medical history of hypertension, arthritis, fibromyalgia presents to the emergency room with abdominal pain, she reports generalized abdominal pain lower worse over the last day. She reports associated nausea vomiting, and able to tolerate p.o. intake. She denies chest pain, shortness of breath, fever. ER course she was treated with Pepcid, Reglan, as needed analgesics fentanyl, Dilaudid, IV fluid, CT of the abdomen pelvis right lower quadrant mildly thickened small bowel loops with mesenteric edema raising suspicious for internal hernia, mildly dilated small bowel loops filled with air in the central abdomen suggesting ileus versus partial low-grade small bowel obstruction, laboratory evaluation no elevated WBCs, early left shift, BUN 19 creatinine 0.92 elevated BNP 489 lipase 39, influenza B positive COVID-negative UA within normal limit Allergies Sulfa (Sulfonamide Antibiotics) Allergy (Severe, Verified 04/22/23 09:25) Anaphylaxis codeine Allergy (Verified 04/22/23 09:14) Hives leflunomide Allergy (Verified 04/22/23 09:14) Hives morphine Allergy (Verified 04/22/23 09:14) Hives oxybutynin Allergy (Verified 04/22/23 09:14) Hives Penicillins Allergy (Verified 04/22/23 09:14) Anaphylaxis - Past Medical/Surgical History -: Hypertension -: GERD -: Insomnia -: Hypothyroidism -: Hyperlipidemia -: Cholecystectomy - Social History Smoking Status: Never smoker Alcohol use: No CD- Drugs: No Caffeine use: Yes Place of Residence: Home Review of Systems per HPI Physical Examination - Physical Exam General: Alert, In no apparent distress, Oriented x3 HEENT: Atraumatic, Normocephalic Neck: Supple, 2+ carotid pulse no bruit, Other (nonprodutive cough) Respiratory: Clear to auscultation bilaterally, Normal air movement Cardiovascular: No edema, Normal pulses Capillary refill: <2 Seconds Gastrointestinal: No tenderness (Generalized tenderness, no rebound) Musculoskeletal: No clubbing, No swelling Integumentary: No rashes, No breakdown Neurological: Normal speech, Normal strength at 5/5 x4 extr - Studies Laboratory Data (last 24 hrs) 04/22/23 04/22/23 04:00 04:00 WBC 8.40 Hgb 12.5 Hct 36.7 Plt Count 296 Sodium 140 Potassium 3.6 BUN 19 H Creatinine 0.92 Glucose 114 H Total Bilirubin 0.3 AST 31 ALT 30 Alkaline Phosphatase 124 H Lipase 39 Microbiology Data (last 24 hrs): 04/22/23 04:00 Nasopharnyx Influenza Type A Antigen Screen - Final 04/22/23 04:00 Nasopharnyx Influenza Type B Antigen Screen - Final Assessment and Plan - Plan Assessment plan Small bowel obstruction Surgery consult Dr. Duran, n.p.o., As needed analgesics, antiemetics, PPI, IV fluid Zosyn, CT of the abdomen pelvis right lower quadrant mildly thickened small bowel loops with mesenteric edema raising suspicious for internal hernia, mildly dilated small bowel loops filled with air in the central abdomen suggesting ileus versus partial low-grade small bowel obstruction, laboratory evaluation no elevated WBCs, early left shift, BUN 19 creatinine 0.92 elevated BNP 489 lipase 39, influenza B positive COVID-negative UA within normal limit Essential hypertension arthritis fibromyalgia Resume appropriate home meds Diet n.p.o. Full code DVT SCDs Discharge Plan: Home Plan to discharge in: 48 Hours - Advance Directives Does patient have a Living Will: No Does patient have a Durable POA for Healthcare: No - Code Status/Comfort Care Code Status: Full Code Critical Care: No Time Spent Managing Pts Care (In Minutes): 55
[2023-04-22 09:18] VITALS: BMI 23.8
[2023-04-22] MEDS: Ringers Lactate 1,000 ML IV SCH (09:18)
[2023-04-22] MEDS ORDERED: PIPER TAZO 3.375 GM in NA CHLORIDE 0.9% 100 ML IV SCH (09:18)
[2023-04-22] MEDS ORDERED: ONDANSETRON 4 MG/2 ML VIAL IV PRN (09:18)
[2023-04-22] MEDS ORDERED: Ringers Lactate 1,000 ML IV ONE (09:30)
[2023-04-22] MEDS: HYDROMORPHONE HCL 0.5 MG/0.5 ML INJ IV PRN ×3 (09:39→23:28)
[2023-04-22] MEDS: CIPROFLOXACIN 400mg IV 400 MG/200 ML BAG IV SCH ×2 (10:00→19:23)
[2023-04-22] MEDS: METRONIDAZOLE 500mg IVPB 500 MG/100 ML BAG IV SCH ×2 (10:00→17:07)
[2023-04-22] MEDS ORDERED: METRONIDAZOLE 500mg IVPB 500 MG/100 ML BAG IV ONE (10:16)
[2023-04-22] MEDS ORDERED: CIPROFLOXACIN 400mg IV 400 MG/200 ML BAG IV ONE (10:16)
--- NOTE | 2023-04-22 10:21 | RAD REPORT ---
EXAM DESCRIPTION: Yonis Single View04/22/2023 9:47 am CLINICAL HISTORY: Device placement with nasogastric tube placement IMPRESSION: Tip of a nasogastric tube lies within the lateral aspect of the gastric fundus
[2023-04-22] MEDS ORDERED: LORazepam 2 MG/ML VIAL ONE (11:54)
[2023-04-22] MEDS ORDERED: PNEUMOCOCCAL VACCINE 0.5 ML IMVAC ONE (12:00)
[2023-04-22] MEDS: LORazepam 2 MG/ML VIAL IV PRN ×3 (12:19→21:16)
--- NOTE | 2023-04-22 14:22 | RAD REPORT ---
EXAM DESCRIPTION: CT - Abdomen Pelvis W Contrast - 04/22/2023 7:01 am CLINICAL HISTORY: The patient is 78 years old and is Female; ABD PAIN TECHNIQUE: Axial computed tomography images of the abdomen and pelvis with intravenous contrast. S agittal and coronal reformatted images were created and reviewed. This CT exam was performed using one or more of the following dose reduction techniques: automated exposure control, adjustment of t he mA and/or kV according to patient size, and/or use of iterative reconstruction technique. COMPARISON: No relevant prior studies available. FINDINGS: Lung bases: Unremarkable. No mass. No consolidation. ABDOMEN: Liver: Unremarkable. No mass. Gallbladder and bile ducts: Cholecystectomy. Biliary dilatation is present without choledocholith iasis. Pancreas: No findings to suggest acute pancreatitis. No mass visualized. No ductal dilation. Spleen: Unremarkable. No splenomegaly. Adrenals: Unremarkable. No mass. Kidneys and ureters: Unremarkable. No solid mass. No hydronephrosis. Stomach and bowel: Mildly dilated small bowel loops with air-fluid levels in the central abdomen. In the right lower quadrant/pelvis there are nondilated mildly thickened small bowel loops with mese nteric edema raising suspicion for internal hernia. No pneumatosis. Stool throughout the colon. No evidence of colitis. Stomach is not well distended. PELVIS: Appendix: No findings to suggest acute appendicitis. Bladder: Unremarkable. No mass. Reproductive: Hysterectomy. No adnexal mass. ABDOMEN and PELVIS: Intraperitoneal space: Unremarkable. No free air. No significant fluid collection. Bones/joints: No acute fracture visualized. No dislocation. Soft tissues: Unremarkable. Vasculature: Unremarkable. No abdominal aortic aneurysm. Lymph nodes: No pathologically enlarged lymph nodes. IMPRESSION: 1. In the right lower quadrant/pelvis, there are nondilated mildly thickened small bow el loops with mesenteric edema raising suspicion for internal hernia. No pneumatosis. Mildly dilated small bowel loops with air-fluid levels in the central abdomen, suggesting ileus versus partial low-g rade small bowel obstruction. 2. Cholecystectomy. Biliary dilatation is present without choledocholithiasis. 3. Additional non-emergent findings as above. Electronically signed by: Shavonne Palumbo MD 04/22/2023 06:25 AM HYPOID GEAR GENERATOR Due to temporary technical issues with the PACS/Fluency reporting system, reports are being signed by the in house radiologist without review as a courtesy to ensure prompt reporting. The interpreting r adiologist is fully responsible for the content of the report.
--- NOTE | 2023-04-22 17:23 | EKG ---
Test Date: 2023-04-22 Test Time: 03:05:03 Md Senior Research Scientist: LAMONT MEASUREMENT RESULTS: Intervals: Rate: 53 FL: 190 QRSD: 68 QT: 474 QTc: 444 [place]: P: 82 FL: 190 QRS: 86 T: 86 INTERPRETIVE STATEMENTS: Sinus bradycardia Septal infarct, age undetermined Abnormal ECG No previous ECG available for comparison Electronically Signed On 04-22-23 17:22:54 CONSTRUCTION ADMINISTRATOR by Brando Arvizu
--- NOTE | 2023-04-22 17:23 | EKG ---
Test Date: 2023-04-22 Test Time: 05:35:08 Cable Braider: LAMONT MEASUREMENT RESULTS: Intervals: Rate: 119 AK: 166 QRSD: 86 QT: 328 QTc: 461 [place]: P: 58 AK: 166 QRS: 88 T: 58 INTERPRETIVE STATEMENTS: Sinus tachycardia Otherwise normal ECG Compared to ECG 04/22/2023 03:05:03 Sinus bradycardia no longer present Myocardial infarct finding no longer present Electronically Signed On 04-22-23 17:22:53 EMISSION SPECIALIST by Brando Arvizu
[2023-04-22] MEDS ORDERED: ALPRAZOLAM 0.25 MG TABLET PO PRN (18:00)
[2023-04-22] MEDS ORDERED: LEVOTHYROXINE SOD 0.088 MG TAB PO SCH (18:00)
[2023-04-22] MEDS ORDERED: HOME MED 1 EA UNK (Ropinirole Hcl [Ropinirole Hcl] 2 MG Tablet) PO SCH (18:00)
[2023-04-22] MEDS ORDERED: lisinopriL 10 MG TAB PO SCH (18:30)
[2023-04-22] MEDS: METOCLOPRAMIDE 10 MG/2mL INJ IV PRN (19:23)
[2023-04-23] MEDS: METRONIDAZOLE 500mg IVPB 500 MG/100 ML BAG IV SCH ×3 (00:14→16:28)
[2023-04-23] MEDS: LORazepam 2 MG/ML VIAL IV PRN ×3 (02:00→14:02)
[2023-04-23] MEDS: Ringers Lactate 1,000 ML IV SCH (03:18)
[2023-04-23] MEDS: METOCLOPRAMIDE 10 MG/2mL INJ IV PRN (04:45)
[2023-04-23] MEDS: LEVOTHYROXINE SOD 0.088 MG TAB PO SCH (06:11)
[2023-04-23] MEDS: HYDROMORPHONE HCL 0.5 MG/0.5 ML INJ IV PRN (06:49)
[2023-04-23 07:53] LABS: Absolute Lymphocytes (CBC) 1.5 K/uL (0.7-4.9); Hematocrit 35.2 % (36.0-45.0); Lymphocytes % 18.8 % (15.3-44.8); MCV 85.1 fL (80-100); MPV 7.5 fL (7.6-11.3); Platelets 305 thou/uL (152-406); RBC Red Blood Cell Count 4.14 M/uL (3.86-4.86)
[2023-04-23 08:02] LABS: Potassium 3.5 mEq/L (3.5-5.1)
--- NOTE | 2023-04-23 08:12 | P.PN ---
Subjective Date of Service: 04/23/23 Chief Complaint: Small bowel obstruction NG tube to low intermittent suction, mild anxiety, as needed analgesics, as needed Ativan ordered - Physical Exam General: Alert, In no apparent distress, Oriented x3 HEENT: Atraumatic, Normocephalic Neck: Supple, 2+ carotid pulse no bruit, Other (nonprodutive cough) Respiratory: Clear to auscultation bilaterally, Normal air movement Cardiovascular: No edema, Normal pulses Capillary refill: <2 Seconds Gastrointestinal: No tenderness (Generalized tenderness, no rebound) Musculoskeletal: No clubbing, No swelling Integumentary: No rashes, No breakdown Neurological: Normal speech, Normal strength at 5/5 x4 extr Review of Systems per HPI Physical Examination - Vital Signs Temperature: 98.4 F Blood Pressure: 155/69 Pulse: 72 Respirations: 18 Pulse Ox (%): 93 - Studies Microbiology Data (last 24 hrs): 04/22/23 04:00 Nasopharnyx Influenza Type A Antigen Screen - Final 04/22/23 04:00 Nasopharnyx Influenza Type B Antigen Screen - Final Assessment And Plan - Plan Assessment plan Small bowel obstruction Surgery consult Dr. Grewal, n.p.o except ice chips., As needed analgesics, antiemetics, PPI, Flagyl Cipro, as needed antianxiety meds CT of the abdomen pelvis right lower quadrant mildly thickened small bowel loops with mesenteric edema raising suspicious for internal hernia, mildly dilated small bowel loops filled with air in the central abdomen suggesting ileus versus partial low-grade small bowel obstruction, laboratory evaluation no elevated WBCs, early left shift, BUN 19 creatinine 0.92 elevated BNP 489 lipase 39, influenza B positive COVID-negative UA within normal limit 04/23 Repeat KUB today IMPRESSION: Mildly distended small bowel loops in the central abdomen, suggestive persistent ileus or low-grade obstruction. . NG to low intermittent suction Elevated BNP Lasix given x 1 Essential hypertension arthritis fibromyalgia Resume appropriate home meds Diet n.p.o. Full code DVT SCDs Discharge Plan: Home - Code Status/Comfort Care Code Status: Full Code Critical Care: No Time Spent Managing PTS Care (In Minutes): 35
[2023-04-23] MEDS: CIPROFLOXACIN 400mg IV 400 MG/200 ML BAG IV SCH ×2 (08:51→21:17)
[2023-04-23] MEDS: ATORVASTATIN 40 MG TAB PO SCH (08:52)
[2023-04-23] MEDS: AMLODIPINE 2.5 MG TAB PO SCH (08:52)
[2023-04-23] MEDS: ROPINIROLE HCL 1 MG TAB PO SCH (08:52)
[2023-04-23] MEDS: EZETIMIBE 10 MG TAB PO SCH (08:52)
[2023-04-23] MEDS: ASPIRIN 81 MG CHEWABLE TABLET PO SCH (08:52)
[2023-04-23] MEDS: CITALOPRAM 10 MG TABLET PO SCH (08:53)
[2023-04-23] MEDS: lisinopriL 10 MG TAB PO SCH (08:53)
[2023-04-23] MEDS ORDERED: HOME MED 1 EA UNK (Citalopram Hydrobromide [Celexa] 20 MG Tablet) PO SCH (09:00)
[2023-04-23] MEDS: PREGABALIN 25 MG PO SCH (09:00)
--- NOTE | 2023-04-23 11:07 | RAD REPORT ---
EXAM DESCRIPTION: RAD - Abdomen 1 View (KUB) - 04/23/2023 10:20 am CLINICAL HISTORY: SBO COMPARISON: Abdomen Pelvis W Contrast dated 04/22/2023 TECHNIQUE: Single AP view of the abdomen. FINDINGS: Mildly distended small bowel loops in the central abdomen. No evidence of free air or pneu matosis. Enteric tube in place. Surgical clips present in the right upper quadrant. No suspicious greg cifications. No significant bony abnormality. IMPRESSION: Mildly distended small bowel loops in the central abdomen, suggestive persistent ileus o r low-grade obstruction. .
[2023-04-23] MEDS: OSELTAMIVIR 75 MG CAP PO SCH ×2 (12:29→21:16)
[2023-04-23] MEDS: KCL 20 MEQ/100 mL IVPB 20 MEQ/100 ML BAG IV SCH ×2 (12:30→14:45)
[2023-04-23] MEDS ORDERED: NA CHLORIDE 0.9% 500 ML ONE (12:37)
--- NOTE | 2023-04-23 13:38 | P.PN ---
Subjective Date of Service: 04/24/23 Chief Complaint: Small bowel obstruction, N/V, general abdominal pain Subjective: Improving (Diet trial today.) Physical Examination - Vital Signs Temperature: 99.1 F Blood Pressure: 152/70 Pulse: 86 Respirations: 16 Pulse Ox (%): 94 Assessment And Plan - Plan REC: 1) continue IVFs 2) diet as per surgery
[2023-04-24] MEDS: METRONIDAZOLE 500mg IVPB 500 MG/100 ML BAG IV SCH ×2 (00:57→08:58)
[2023-04-24] MEDS: LEVOTHYROXINE SOD 0.088 MG TAB PO SCH (05:40)
[2023-04-24 06:44] LABS: Absolute Lymphocytes (CBC) 1.4 K/uL (0.7-4.9); Hematocrit 32.9 % (36.0-45.0); Lymphocytes % 22.4 % (15.3-44.8); MCV 84.2 fL (80-100); MPV 7.6 fL (7.6-11.3); Platelets 261 thou/uL (152-406); RBC Red Blood Cell Count 3.91 M/uL (3.86-4.86)
[2023-04-24 06:59] LABS: Magnesium 1.9 mg/dL (1.6-2.4); Potassium 3.4 mEq/L (3.5-5.1)
[2023-04-24 08:51] VITALS: O2SAT 97
[2023-04-24] MEDS: CIPROFLOXACIN 400mg IV 400 MG/200 ML BAG IV SCH (08:58)
[2023-04-24] MEDS: EZETIMIBE 10 MG TAB PO SCH (08:59)
[2023-04-24] MEDS: PREGABALIN 25 MG PO SCH (09:00)
[2023-04-24] MEDS: CITALOPRAM 10 MG TABLET PO SCH (09:00)
[2023-04-24] MEDS: AMLODIPINE 2.5 MG TAB PO SCH (09:00)
[2023-04-24] MEDS: OSELTAMIVIR 75 MG CAP PO SCH (09:00)
[2023-04-24] MEDS: ASPIRIN 81 MG CHEWABLE TABLET PO SCH (09:00)
[2023-04-24] MEDS: ROPINIROLE HCL 1 MG TAB PO SCH (09:00)
[2023-04-24] MEDS: ATORVASTATIN 40 MG TAB PO SCH (09:01)
[2023-04-24] MEDS: lisinopriL 10 MG TAB PO SCH (09:01)
--- NOTE | 2023-04-24 12:01 | RAD REPORT ---
EXAM DESCRIPTION: RAD - Abdomen 1 View (KUB) - 04/24/2023 9:47 am CLINICAL HISTORY: SBO COMPARISON: Abdomen 1 View (KUB) dated 04/23/2023; Abdomen Pelvis W Contrast dated 04/22/2023 TECHNIQUE: Single AP view of the abdomen. FINDINGS: Improving small-bowel distention, currently with a nonobstructive bowel gas pattern. Enter ic tube has been removed. No air-fluid levels, free air, or pneumatosis. Mild stool burden throughout the colon. No suspicious calcifications. No significant bony abnormality. IMPRESSION: Improving central small bowel gaseous distension.
[2023-04-24] MEDS ORDERED: POLYVINYL ALCOHOL 1.4% 15 ML EACH EYE SCH (13:00)
[2023-04-24] MEDS ORDERED: CARBOXYMETHYLCELLULOSE SODIUM 0.5% 15 ML EACH EYE SCH (13:00)
[2023-04-24] MEDS ORDERED: HYDROCODONE/APAP 10/325 TAB PO PRN (13:35)
[2023-04-24] MEDS ORDERED: FUROSEMIDE 40 MG/4 ML VIAL IV ONE (13:45)
[2023-04-24] MEDS ORDERED: POTASSIUM 25 MEQ EFFERV TAB PO ONE (13:46)
--- NOTE | 2023-04-24 13:48 | P.DS ---
Admission Date: 04/22/23 Discharge Date: 04/24/23 Disposition: ROUTINE DISCHARGE Reason for Admission: Small bowel obstruction, N/V, general abdominal pain Brief History of Present Illness: 78-year-old female with a past medical history of hypertension, arthritis, fibromyalgia presents to the emergency room with abdominal pain, she reports generalized abdominal pain lower worse over the last day. She reports associated nausea vomiting, and able to tolerate p.o. intake. She denies chest pain, shortness of breath, fever. ER course she was treated with Pepcid, Reglan, as needed analgesics fentanyl, Dilaudid, IV fluid, CT of the abdomen pelvis right lower quadrant mildly thickened small bowel loops with mesenteric edema raising suspicious for internal hernia, mildly dilated small bowel loops filled with air in the central abdomen suggesting ileus versus partial low-grade small bowel obstruction, laboratory evaluation no elevated WBCs, early left shift, BUN 19 creatinine 0.92 elevated BNP 489 lipase 39, influenza B positive COVID-negative UA within normal limit - Physical Exam General: Alert, In no apparent distress, Oriented x3 HEENT: Atraumatic, Normocephalic Neck: Supple, 2+ carotid pulse no bruit, Respiratory: Clear to auscultation bilaterally, Normal air movement Cardiovascular: No edema, Normal pulses Capillary refill: <2 Seconds Gastrointestinal: No tenderness Musculoskeletal: No clubbing, No swelling Integumentary: No rashes, No breakdown Neurological: Normal speech, Normal strength at 5/5 x4 extr Hospital Course: 78-year-old femaleyear-old female patient with a past medical history of arthritis, hypertension, presented with with abdominal pain. Was noted to have small bowel obstruction. Was treated with n.p.o., IV fluids, IV pain med ications, surgical evaluation. Condition improved with treatment plan. She has had a bowel movement daily for 2 days. Tolerated p.o. diet Stable for discharge with follow-up appointment with primary care physician. PROBLEM: Small bowel obstruction Influenza asymptomatic Continue home medicines as previously prescribed Need to take daily stool softeners BM daily or every other day. Per surgery patient can discharge home Follow-up with GI for routine colonoscopy screening after discharge. GOAL: Clear understanding of disease process INSTRUCTIONS: Physician Discharge Instructions: -DC IV and DC home -Follow-up with PCP in 1 to 2 weeks -Please call Dr. Anguiano at [phone] if any questions regarding hospital stay -Please call nursing station at [phone] if any nursing or medication questions -Return to the emergency room if symptoms worsen Diet: ADA, low sodium Activity: Fall precautions DME: None Date Ordered: Name of Company: [employer] Services Needed: None Date or Referral: IMMUNIZATION Influenza Vaccine Indicated: Influenza Vaccine Given: Date Given: Pneumonia Vaccine Indicated: Pneumonia Vaccine Given: Date Given: Vital Signs/Physical Exam: Temp Pulse Resp BP Pulse Ox 98.0 F 80 18 159/75 H 98 04/24/23 08:00 04/24/23 09:01 04/24/23 08:00 04/24/23 09:01 04/24/23 08:00 Laboratory Data at Discharge: WBC 6.40 thou/uL (4.3-10.9) 04/24/23 06:19 Hgb 11.3 g/dL (12.0-15.0) L 04/24/23 06:19 Hct 32.9 % (36.0-45.0) L 04/24/23 06:19 Plt Count 261 thou/uL (152-406) 04/24/23 06:19 Sodium 137 mEq/L (136-145) 04/24/23 06:19 Potassium 3.4 mEq/L (3.5-5.1) L 04/24/23 06:19 BUN 10 mg/dL (7-18) 04/24/23 06:19 Creatinine 0.70 mg/dL (0.55-1.02) 04/24/23 06:19 Glucose 123 mg/dL (74-106) H 04/24/23 06:19 Magnesium 1.9 mg/dL (1.6-2.4) 04/24/23 06:19 Total Bilirubin 0.3 mg/dL (0.2-1.0) 04/22/23 04:00 AST 31 U/L (15-37) 04/22/23 04:00 ALT 30 U/L (13-56) 04/22/23 04:00 Alkaline Phosphatase 124 U/L (45-117) H 04/22/23 04:00 Lipase 39 U/L (13-75) 04/22/23 04:00 Home Medications: Alprazolam [Xanax] 0.25 mg PO PRN 04/22/23 Amlodipine Besylate [Norvasc] 2.5 mg PO BREAKFAST 04/22/23 Aspirin 81 mg PO DAILY 04/22/23 Atorvastatin Calcium 40 mg PO DAILY 04/22/23 Citalopram Hydrobromide [Celexa] 20 mg PO DAILY 04/22/23 Clopidogrel Bisulfate [Plavix] 75 mg PO DAILY 04/22/23 Ezetimibe 10 mg PO DAILY 04/22/23 Levothyroxine [Synthroid*] 0.088 mg PO [id number] 04/22/23 Lisinopril [Zestril] 10 mg PO DAILY 04/22/23 Pregabalin 25 mg PO DAILY 04/22/23 Ropinirole HCl 2 mg PO DAILY 04/22/23 Diet: AHA Followup: NONE,NONE [Primary Care Provider] - Time spent managing pt's care (in minutes): 55
[2023-04-24] MEDS ORDERED: metroNIDAZOLE 500 MG TABLET PO SCH (14:45)
--- NOTE | 2023-04-24 15:16 | P.PN ---
Subjective Date of Service: 04/24/23 Chief Complaint: Small bowel obstruction, N/V, general abdominal pain Subjective: Improving (SBO resolved. Tolerating po diet. Patient is going home.) Review of Systems 10-point ROS is otherwise unremarkable General: Weakness (Improved. ) Physical Examination - Vital Signs Temperature: 98.0 F Blood Pressure: 128/77 Pulse: 72 Respirations: 16 Pulse Ox (%): 97 - Physical Exam General: Alert, In no apparent distress, Oriented x3, Cooperative HEENT: Atraumatic, Normocephalic, PERRLA, EOMI Neck: Supple Cardiovascular: Normal pulses Gastrointestinal: Soft and benign, No tenderness, No rebound, No guarding Neurological: Normal speech, Normal strength at 5/5 x4 extr Assessment And Plan - Plan REC: 1) follow-up with surgery 2) GI clinic follow-up
[2023-04-24 15:22] VITALS: BP 152/70; TEMP 99.1
--- NOTE | 2023-04-24 19:57 | CON ---
Date of Consultation: 04/22/2023 Reason For Consultation: Small bowel obstruction. History Of Present Illness: This patient is a 78-year-old white female with history of hypertension, arthritis, fibromyalgia, presented to the hospital due to generalized abdominal pain with nausea and vomiting. CT revealed looks like probable obstruction in the right lower quadrant area with mildly thickened small bowel loops and mesenteric edema arising suspicious for internal hernia and mildly di lated small bowel loops in the central abdomen suggests an ileus versus partial low-grade small bowel obstruction. White count had left shift. The patient was brought in the hospital for further manag ement and care. The patient was started on IV fluids and NG tube to low intermittent wall suction. She has been doing better since admission. Past Medical History: Significant for hypertension, gastroesophageal reflux disease, insomnia, hypot hyroidism, hyperlipidemia, cholecystectomy. Home Medications: See note. Allergies: TO SULFA, CODEINE, LEFLUNOMIDE, MORPHINE, OXYBUTYNIN, AND PENICILLINS. Social History: She is . No children. No tobacco. Occasional alcohol. Family History: Father with dementia. Mother with colon cancer at age of 80. Review of Systems: The patient has generalized abdominal pain, nausea, vomiting, better now on NG tube to low intermitte nt wall suction. CT reveals small bowel obstruction in right lower quadrant and possible one in the central abdomen or mid abdomen as well. Physical Examination: Vital Signs: The patient is afebrile. Vital signs stable. She is 5 feet 2 inches, 130 pounds, BMI of 23.8 kg/m2. She had temperature of 98 degrees Fahrenheit, pulse 70, respirations 17, blood pressu re 154/67, O2 saturation 94% to 98%. General: She is a well-nourished, well-developed female, lying in bed, in no acute distress with an NG tube in place. HEENT: Normocephalic, atraumatic. Anicteric. Pupils equal, round, and reactive to light. NG tube in nares to low intermittent wall suction. Neck: Supple. No masses. Respirations: Clear to auscultation bilaterally. Cardiac: Regular rate and rhythm. Gastrointestinal: Positive bowel sounds, although hypoactive, possibly from the suction of NG tube. Extremities: No clubbing, cyanosis, or edema. 2+ pulses. Neuro: Alert and oriented x3. Grossly nonfocal. 5/5 motor strength. Sensation is intact to light touch. Laboratory Data: The patient has white count of 8.4, hemoglobin of 12.5, hematocrit 37, MCV of 85, p latelet count 296, polys 75%, lymphocytes 17%, monocytes 7%, eosinophils 1%. Sodium 140, potassium 3 .6, chloride 107, bicarb 30, BUN of 19, creatinine of 0.92, glucose 114, calcium 9.1, total bilirubin 0.3, AST of 31, ALT of 30, alkaline phosphatase 124. Troponin I of 15.5. Beta-natriuretic peptide of 489, total protein 7.3, albumin 3.4, lipase 39. UA negative. COVID-[address] abdo men and pelvis revealed small bowel obstruction in the right lower quadrant with nondistended mildly thickened small bowel loops and mesenteric edema raising suspicions for internal hernia and then in t he central abdomen, the patient had mildly dilated small bowel loops or fluid levels suggesting parti al small bowel obstruction or ileus. Cholecystectomy changes, change in biliary dilatation present p robably secondary to cholecystectomy in the past. Impression: 1.Probable small bowel obstruction, right lower quadrant, and suspicion of partial small bowel obstr uction in the central abdomen with CT scan of abdomen revealing this. The patient with generalized p ain, nausea, vomiting, improved on NG tube and nasogastric tube to low intermittent wall suction. 2.History of hypertension, hyperlipidemia, coronary artery disease in 90s, gastric reflux disease, i nsomnia, cholecystectomy, dementia, arthritis, fibromyalgia, and hypothyroidism. Recommendation: 1.Continue with an NG tube to low intermittent wall suction. Continue IV fluids gently. 2.Surgery consult. 3.Monitor labs and replete lytes. WS/MODL Voice ID: [id number] Report ID: [id number]
[2023-04-24] MEDS ORDERED: CIPROFLOXACIN HCL 500 MG TAB PO SCH (21:00)
[2023-04-25] MEDS ORDERED: POTASSIUM 25 MEQ EFFERV TAB PO SCH (09:00)
== END 2023-04-24 16:50 | disposition home or self-care (01) | DRG 390 ==
LOC: ER 02:29 → ERHOLD 07:38 → 2ND 15:46
PROVIDERS: ADMIT Hospitalist; ATTEND Hospitalist
DX: K56.609 Unspecified intestinal obstruction, unspecified as to partial versus complete obstruction (principal); E03.9 Hypothyroidism, unspecified; F03.90 Unspecified dementia, unspecified severity, without behavioral disturbance, psychotic disturbance, mood disturbance, and anxiety; I10 Essential (primary) hypertension; E78.5 Hyperlipidemia, unspecified; F41.9 Anxiety disorder, unspecified; J10.2 Influenza due to other identified influenza virus with gastrointestinal manifestations; M19.90 Unspecified osteoarthritis, unspecified site; M79.7 Fibromyalgia; I25.10 Atherosclerotic heart disease of native coronary artery without angina pectoris; K21.9 Gastro-esophageal reflux disease without esophagitis; Z11.52 Encounter for screening for COVID-19
CPT/HCPCS: 36415; 71045; 74018; 74177; 80048; 80053; 81003; 83690; 83735; 83880; 84484; 85025; 87635; 87804; 93005; 94760; J0744; J1170; J2405; J2765; J3480; J7040; J7042; J7120; J7799; Q9967

== ENCOUNTER 2024-08-24 07:36 | Observation (INO) | payer MEDICAID, OTHER ==
[2024-08-24] MEDS ORDERED: NA CHLORIDE 0.9% 1,000 ML ONE (08:09)
[2024-08-24] MEDS ORDERED: TDAP (DIPHTH,PERTUSS(ACELL),TET VAC) 0.5 ML VIAL IMVAC ONE (08:09)
[2024-08-24 08:22] LABS: Absolute Eosinophils 0.1 K/uL (0-0.5); Absolute Lymphocytes (CBC) 1.3 K/uL (0.7-4.9); Absolute Monocytes 0.4 K/uL (0.1-1.3); Absolute Neutrophil 3.3 K/uL (1.8-8.0); Basophils % 0.6 % (0-1.3); Eosinophils % 2.7 % (0-4.4); Hematocrit 35.3 % (36.0-45.0); Hemoglobin 12.2 g/dL (12.0-15.0); Lymphocytes % 26.1 % (15.3-44.8); MCH 29.2 pg (27.0-35.0); MCHC 34.6 g/dL (32.0-36.0); MCV 84.3 fL (80-100); MPV 7.9 fL (7.6-11.3); Monocytes % 7.6 % (3.3-12.3); Nucleated Red Blood Cells % 0.2 % (0-0); Platelets 284 thou/uL (152-406); RBC Red Blood Cell Count 4.19 M/uL (3.86-4.86); Red Cell Distribution Width 14.6 % (12.1-15.2)
--- NOTE | 2024-08-24 08:23 | RAD REPORT ---
EXAMINATION: ONE VIEW CHEST XR CLINICAL INDICATION: BLUNT CHEST TRAUMA TECHNIQUE: Frontal chest projection is submitted. Examination is limited by patient positioning and t echnique. COMPARISON: 04/22/2023 FINDINGS: [id number] bilateral pulmonary opacities are present likely representing pulmonary edema or pne umonia. Mild linear atelectasis in the right midlung. The heart is upper limit of normal in size. No displaced fractures identified.
[2024-08-24 08:31] LABS: PT Prothrombin Time 11.5 SECONDS (10-13.0); PTT, Activated Partial Thromb 27.2 SECONDS (27.2-37.4); Protime INR 1.01
[2024-08-24 08:41] LABS: Albumin 3.4 g/dL (3.4-5.0); Anion Gap 7.9 mEq/L (5.0-15.0); Bilirubin Direct 0.2 mg/dL (0-0.2); Bilirubin Indirect, Calculated 0.3 mg/dL (0.2-0.8); Bilirubin Total 0.5 mg/dL (0.2-1.0); Globulin 3.3 g/dL (2.3-3.5); Magnesium 2.1 mg/dL (1.6-2.4); Potassium 3.9 mEq/L (3.5-5.1); Protein, Total 6.7 g/dL (6.4-8.2); Troponin High Sensitivity 12.8 pg/mL (<58.9)
--- NOTE | 2024-08-24 08:47 | RAD REPORT ---
EXAM: CT brain without contrast HISTORY: fell on plavix COMPARISON: None TECHNIQUE: Multiple contiguous axial images were obtained and a CT of the brain without contrast. Sag ittal and coronal reformats were performed. One or more of the following dose reduction techniques were used: Automated exposure control, adjust ment of the mA and/or kV according to patient size, and/or iterative reconstruction. FINDINGS: No evidence of hydrocephalus, intracranial hemorrhage, or extra-axial fluid collection. Moderate brain atrophy with moderate periventricular and deep white matter chronic microvascular isc hemic changes present. Small area of encephalomalacia right posterior parietal region. No evidence of midline shift or areas of brain edema. Vertebrobasilar atherosclerosis. The calvarium is intact. Mild left mastoid effusion. IMPRESSION: No evidence of acute intracranial abnormality.
--- NOTE | 2024-08-24 08:49 | RAD REPORT ---
EXAMINATION: CT LUMBAR SPINE WITHOUT CONTRAST CLINICAL INDICATION: Female, 79 years old. fall TECHNIQUE: Axial CT images were obtained through the lumbar spine in soft tissue and bone windows wit hout intravenous contrast. Coronal and Sagittal reformatted images were created from the data set. One or more of the following dose reduction techniques were used: Automated exposure control, adjustm ent of the mA and/ or kV according to patient size, and/or iterative reconstruction. Unless otherwise specified, incidental findings do not require dedicated imaging follow-up. COMPARISON: No prior exam. FINDINGS: For purposes of this dictation, it is assumed that there are 5 non rib-bearing lumbar type vertebrae, and the most caudal fully segmented lumbar vertebra is labeled L5. ALIGNMENT: The lumbar spine demonstrates normal alignment without scoliosis or spondylolisthesis. BONES: No significant soft tissue abnormalities. No aggressive osseous lesions. Diffuse osteopenia. DISCS: Disc thinning is present at L2-3. LEVELS: Posterior disc bulge is present at L1-2 and L2-3 resulting in mild central canal narrowing. T here is [id number] exit foraminal narrowing bilaterally. SOFT TISSUE: Prominent stool retention throughout the colon. IMPRESSION: No acute lumbar spine abnormalities. Moderate upper lumbar spondylosis.
--- NOTE | 2024-08-24 09:57 | EDPHYS ---
Physician Documentation [facility] Name: Kayla Tamayo Age: 79 yrs Sex: Female : 1945 Arrival Date: 08/24/2024 Time: 07:36 Bed 14 Private MD: ED Physician Cierra Navarrete HPI: 08/24 09:56 This 79 yrs old Female presents to ER via Ambulatory with complaints of Passed Out cp3 Prior To Arrival, Head Injury-Adult. 07:59 The patient is a 79-year-old female presents to ED status post passing out while cp3 washing her hands. The patient denies chest pain, shortness of breath, neurologic change. The patient did hit her head and her lower back when she hit the floor. The patient is on Plavix. The patient denies fever, chills, nausea, vomiting, diarrhea, chest pain, shortness of breath. Past medical history reviewed in the nursing notes. 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 - Infectious Disease History:: Denies. - Social history:: Smoking status: Patient denies any tobacco usage or history of. ROS: 07:59 Constitutional: cp3 07:59 Cardiovascular: Negative for chest pain, edema, orthopnea, palpitations, paroxysmal nocturnal dyspnea, 07:59 Respiratory: Negative for cough, dyspnea on exertion, hemoptysis, orthopnea, pleurisy, shortness of breath, sputum production, wheezing, 07:59 Abdomen/GI: Negative for vomiting, diarrhea, 07:59 Neuro: Positive for syncope, 07:59 All other systems are negative, 09:58 Constitutional: Negative for fever, chills, and weight loss, cp3 Exam: 07:59 Constitutional: This is a well developed, well nourished patient who is awake, alert, cp3 and in no acute distress. Head/Face: lower lip with small abrasion Eyes: Pupils equal round and reactive to light, extra-ocular motions intact. Lids and lashes normal. Conjunctiva and sclera are non-icteric and not injected. Cornea within normal limits. Periorbital areas with no swelling, redness, or edema. ENT: Nares patent. No nasal discharge, no septal abnormalities noted. Tympanic membranes are normal and external auditory canals are clear. Oropharynx with no redness, swelling, or masses, exudates, or evidence of obstruction, uvula midline. Mucous membranes moist. Neck: Trachea midline, no thyromegaly or masses palpated, and no cervical lymphadenopathy. Supple, full range of motion without nuchal rigidity, or vertebral point tenderness. No Meningismus. Chest/axilla: Normal chest wall appearance and motion. Nontender with no deformity. No lesions are appreciated. Cardiovascular: Regular rate and rhythm with a normal S1 and S2. No gallops, murmurs, or rubs. Normal PMI, no JVD. No pulse deficits. Respiratory: Lungs have equal breath sounds bilaterally, clear to auscultation and percussion. No rales, rhonchi or wheezes noted. No increased work of breathing, no retractions or nasal flaring. Abdomen/GI: Soft, non-tender, with normal bowel sounds. No distension or tympany. No guarding or rebound. No evidence of tenderness throughout. Back: right lower back with bruising Skin: Warm, dry with normal turgor. Normal color with no rashes, no lesions, and no evidence of cellulitis. MS/ Extremity: Pulses equal, no cyanosis. Neurovascular intact. Full, normal range of motion. Neuro: Awake and alert, GCS 15, oriented to person, place, time, and situation. Cranial nerves II-XII grossly intact. Motor strength 5/5 in all extremities. Sensory grossly intact. Cerebellar exam normal. Normal gait. Psych: Awake, alert, with orientation to person, place and time. Behavior, mood, and affect are within normal limits. Vital Signs: 07:48 BP 145 / 57; Pulse 50; Resp 17; Temp 97.9; Pulse Ox 98% ; Weight 58.97 kg; Height 5 ft. jl7 2 in. ; Pain 10/10; 07:50 BP 145 / 57; Pulse 52; Resp 18; Pulse Ox 99% on R/A; Pain 10/10; ap3 08:20 BP 143 / 49 Supine; Pulse 59; ap3 08:25 BP 144 / 60 Sitting; Pulse 62; ap3 08:34 BP 142 / 53 Standing; Pulse 63; ap3 09:39 BP 141 / 77; Pulse 59; Resp 17; Pulse Ox 99% on R/A; ap3 07:48 Body Mass Index 23.78 (58.97 kg, 157.48 cm) jl7 07:48 Pain Scale: Adult jl7 07:50 Pain Scale: Adult ap3 [place] Coma Score: 07:48 Eye Response: spontaneous(4). Motor Response: obeys commands(6). Verbal Response: jl7 oriented(5). Total: 15. Procedures: 09:57 ekg interpreted by ga - rate 50, bradycardia, no stemi. cp3 MDM: 07:41 Medical Screening Exam initiated cp3 07:59 Differential Diagnosis: cardiac arrhythmia, cerebrovascular accident, idiopathic cp3 syncope, transient ischemic attack, vasovagal episode. Data reviewed: vital signs, nurses notes, EKG, radiologic studies, CT scan, plain films. Consideration of Admission/Observation Escalation of care including admission/observation considered. 09:57 Management of patient was discussed with the following: Hospitalist: dr akbar. cp3 Independent interpretation of the following test(s) in the Emergency Department CT Scan: My interpretation is no bleed or mass. 08/24 07:57 Order name: Basic Metabolic Panel; Complete Time: 09:38 3 08/24 07:57 Order name: CBC with Diff; Complete Time: 09:38 3 08/24 07:57 Order name: Hepatic Function; Complete Time: 09:38 cp3 08/24 07:57 Order name: Magnesium; Complete Time: 09:38 cp3 08/24 07:57 Order name: Protime (+inr); Complete Time: 09:38 3 08/24 07:57 Order name: Ptt, Activated; Complete Time: 09:38 cp3 08/24 07:57 Order name: Troponin High Sensitivity; Complete Time: 09:38 cp3 08/24 07:57 Order name: UA Rfx Reji Cult if indicated cp3 08/24 07:57 Order name: CT Head Brain wo Cont; Complete Time: 09:38 cp3 08/24 07:57 Order name: Chest Single View XRAY; Complete Time: 09:38 cp3 08/24 07:57 Order name: CT Lumbar Spine Wo Con; Complete Time: 09:38 cp3 08/24 07:57 Order name: Cardiac monitoring; Complete Time: 08:01 cp3 08/24 07:57 Order name: EKG - Nurse/Tech; Complete Time: 08:01 cp3 08/24 07:57 Order name: Labs collected and sent; Complete Time: 08:13 cp3 08/24 07:57 Order name: NPO; Complete Time: 08:01 cp3 08/24 07:57 Order name: O2 Per Protocol; Complete Time: 08:01 cp3 08/24 07:57 Order name: Orthostatics; Complete Time: 08:32 cp3 Administered Medications: 08:17 Not Given (Patient Objection): tetanus-diphtheria toxoidadult 0.5 ml IM once; Provide ap3 Vaccine Information Statement (VIS). 08:32 Drug: NS 0.9% IV 1000 ml IV at 1000 ml once; to be given as a bolus over 60 minutes ap3 Route: IV; Rate: 1000 ml; Site: left antecubital; 11:36 Follow up: Response: No adverse reaction; IV Status: Infusion continued upon admission; kc6 IV Intake: 1000ml Disposition Summary: 08/24/24 09:56 Hospitalization Ordered Notes: Provider: Celestine Akbar Location: Telemetry/MedSurg (observation) cp3 Condition: Stable cp3 Problem: new cp3 Symptoms: have improved cp3 Bed/Room Type: Standard 3 Room Assignment: [facility](08/24/24 10:46) bd Hospitalization Status: Inpatient Admission(08/24/24 10:56) cp3 Diagnosis - Syncope cp3 - CAD cp3 - closed head injury cp3 - back contusion cp3 - facial contusion cp3 Discharge Instructions: - Discharge Summary Sheet jl7 Forms: - Medication Reconciliation Form cp3 - Leadership Thank You Letter cp3 - SBAR form jl7 Signatures: Dispatcher [employer] Jackeline Daniel Cwanza, MD MD cp3 Yulia Herrmann RN RN jl7 Adamaris Freeman RN RN ap3 Yanira Rodriges RN kc6 Corrections: (The following items were deleted from the chart) 07:58 07:58 BASIC METABOLIC PANEL+C.LAB.BRZ ordered. EDMS EDMS 07:58 07:58 CBC+H.LAB.BRZ ordered. EDMS EDMS 07:58 07:58 HEPATIC FUNCTION+C.LAB.BRZ ordered. EDMS EDMS 07:58 07:58 MAGNESIUM+C.LAB.BRZ ordered. EDMS EDMS 07:58 07:58 PROTIME (+INR)+COAG.LAB.BRZ ordered. EDMS EDMS 07:58 07:58 PTT, ACTIVATED+COAG.LAB.BRZ ordered. EDMS EDMS 07:58 07:58 Troponin High Sensitivity+C.LAB.BRZ ordered. EDMS EDMS 07:58 07:58 UA Rfx Reji Cult if indicated+U.LAB.BRZ ordered. EDMS EDMS 07:58 07:58 Head Brain Wo Cont+CT.RAD.BRZ ordered. EDMS EDMS 07:58 07:58 Chest Single View+RAD.RAD.BRZ ordered. EDMS EDMS 07:58 07:58 Spine Lumbar Wo Con+CT.RAD.BRZ ordered. EDMS EDMS 10:46 09:56 cp3 bd 10:56 09:56 Observation cp3 cp3
--- NOTE | 2024-08-24 09:57 | ER ---
Nurse's Notes [facility] Name: Kayla Tamayo Age: 79 yrs Sex: Female : 1945 Arrival Date: 08/24/2024 Time: 07:36 Bed 14 Private MD: Diagnosis: Syncope;CAD;closed head injury;back contusion;facial contusion Presentation: 08/24 07:48 Chief complaint: Patient states: Reports syncopal episode while standing at sink, fell jl7 back and hit posterior head on door. Coronavirus screen: At this time, the client does not indicate any symptoms associated with coronavirus-19. Ebola Screen: No symptoms or risks identified at this time. Mechanism of Injury: resulted from a fall, from a standing position. Initial Sepsis Screen: Does the patient meet any 2 criteria? No. Patient's initial sepsis screen is negative. Does the patient have a suspected source of infection? No. Patient's initial sepsis screen is negative. Risk Assessment: Do you want to hurt yourself or someone else? Patient reports no desire to harm self or others. Onset of symptoms was August 24, 2024. 07:48 Method Of Arrival: Ambulatory jl7 07:48 Acuity: ESTRELLA 3 jl7 Triage Assessment: 07:50 General: Appears in no apparent distress. uncomfortable, Behavior is calm, cooperative, jl7 appropriate for age. Pain: Complains of pain in head Pain currently is 10 out of 10 on a pain scale. Neuro: [place] Agitation-Sedation Scale (RASS): 0 - Alert and Calm Level of Consciousness is awake, alert, obeys commands, Oriented to person, place, time, situation, Speech is normal, Facial symmetry appears normal. Cardiovascular: Patient's skin is warm and dry. Respiratory: Airway is patent Respiratory effort is even, unlabored, Respiratory pattern is regular, symmetrical. Derm: Skin is pink, warm \T\ dry. 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 - Infectious Disease History:: Denies. - Social history:: Smoking status: Patient denies any tobacco usage or history of. Screenin:50 [facility] ED Fall Risk Assessment (Adult) History of falling in the last 3 months, ap3 including since admission Yes- single mechanical fall (1 pt) Confusion or Disorientation No (0 pts) Intoxicated or Sedated No (0 pts) Impaired Gait No (0 pts) Mobility Assist Device Used No (0 pt) Altered Elimination No (0 pt) Score/Fall Risk Level 3 or more points = High Risk Oriented to surroundings, Maintained a safe environment, Educated pt \T\ family on fall prevention, incl call for assistance when getting out of bed, Assessed \T\ reinforced patient's understanding of fall precautions, Provided non-skid footwear, Hourly rounding (assess needs \T\ fall precautionary measures) done, Used ambulatory aids as needed (educated on \T\ assisted with), Used gait belt as appropriate Remained w/in arm's length of patient and in sight while toileting, Offered frequent toileting (1:1 observation), Remained with patient while ambulating, Utilized family, sitter, or virtual rolling machine operator automatic as indicated. Abuse screen: Denies threats or abuse. Nutritional screening: No deficits noted. Tuberculosis screening: No symptoms or risk factors identified. Assessment: 07:48 General: Appears comfortable, Behavior is calm, cooperative, appropriate for age. Pain: ap3 Complains of pain in head Pain currently is 10 out of 10 on a pain scale. Neuro: Level of Consciousness is awake, alert, obeys commands, Oriented to person, place, time, situation, Speech is normal, Reports a syncopal episode. Cardiovascular: Patient's skin is warm and dry. Respiratory: Airway is patent Respiratory effort is even, unlabored, Respiratory pattern is regular, symmetrical. 10:01 Reassessment: Patient and/or family updated on plan of care and expected duration. Pain ap3 level reassessed. Patient is alert, oriented x 3, equal unlabored respirations, skin warm/dry/pink. General: Appears comfortable, Behavior is calm, cooperative, appropriate for age. Neuro: Level of Consciousness is awake, alert, obeys commands, Oriented to person, place, time, situation. Vital Signs: 07:48 BP 145 / 57; Pulse 50; Resp 17; Temp 97.9; Pulse Ox 98% ; Weight 58.97 kg; Height 5 ft. jl7 2 in. ; Pain 10/10; 07:50 BP 145 / 57; Pulse 52; Resp 18; Pulse Ox 99% on R/A; Pain 10/10; ap3 08:20 BP 143 / 49 Supine; Pulse 59; ap3 08:25 BP 144 / 60 Sitting; Pulse 62; ap3 08:34 BP 142 / 53 Standing; Pulse 63; ap3 09:39 BP 141 / 77; Pulse 59; Resp 17; Pulse Ox 99% on R/A; ap3 07:48 Body Mass Index 23.78 (58.97 kg, 157.48 cm) jl7 07:48 Pain Scale: Adult jl7 07:50 Pain Scale: Adult ap3 [place] Coma Score: 07:48 Eye Response: spontaneous(4). Motor Response: obeys commands(6). Verbal Response: jl7 oriented(5). Total: 15. ED Course: 07:38 Patient arrived in ED. im 07:40 Cierra Navarrete MD is Attending Physician. cp3 07:48 Adamaris Freeman, BEAR is Primary Nurse. ap3 07:48 EKG done, by ED staff, reviewed by Cierra Navarrete MD. ap3 07:49 Patient has correct armband on for positive identification. Placed in gown. Bed in low ap3 position. Call light in reach. Side rails up X2. Adult w/ patient. Provided Education on: call light education. Client placed on continuous cardiac and pulse oximetry monitoring. NIBP monitoring applied. phototypesetting equipment monitor on. Pulse ox on. NIBP on. Door closed. Warm blanket given. Pillow given. 07:50 Triage completed. jl7 07:51 Arm band placed on right wrist. ap3 08:18 Inserted saline lock: 22 gauge in left antecubital area, using aseptic technique. Blood am7 collected. Flushed with 10 mL NS. 08:19 Chest Single View XRAY In Process Unspecified. EDMS 08:22 CT Head Brain wo Cont In Process Unspecified. EDMS 08:22 CT Lumbar Spine Wo Con In Process Unspecified. EDMS 09:54 Celestine Akbar is Hospitalizing Provider. cp3 09:55 No provider procedures requiring assistance completed. ap3 10:15 Report received from Adamaris Fry RN. kc6 11:35 Patient admitted, IV remains in place. kc6 Administered Medications: 08:17 Not Given (Patient Objection): tetanus-diphtheria toxoidadult 0.5 ml IM once; Provide ap3 Vaccine Information Statement (VIS). 08:32 Drug: NS 0.9% IV 1000 ml IV at 1000 ml once; to be given as a bolus over 60 minutes ap3 Route: IV; Rate: 1000 ml; Site: left antecubital; 11:36 Follow up: Response: No adverse reaction; IV Status: Infusion continued upon admission; kc6 IV Intake: 1000ml Medication: 08:34 VIS not applicable for this client. ap3 Intake: 11:36 IV: 1000ml; Total: 1000ml. kc6 Outcome: 09:56 Decision to Hospitalize by Provider. cp3 11:35 Admitted to Med/surg accompanied by tech, via wheelchair, room 209, with chart, kc6 11:35 Condition: good 11:35 Instructed on the need for admit, 11:36 Patient left the ED. kc6 Signatures: Dispatcher [employer] Cierra Campos MD MD cp3 Yulia Herrmann RN RN jl7 Adamaris Freeman RN RN ap3 Yanira Rodriges RN RN kc6 Komal Mijares Abigail am7
[2024-08-24] MEDS ORDERED: HYDRALAZINE HCL 20 MG/ML VIAL IV PRN (10:45)
--- NOTE | 2024-08-24 11:13 | EKG ---
Test Date: 2024-08-24 Test Time: 07:45:00 [employer] Candy Maker: ALP MEASUREMENT RESULTS: Intervals: Rate: 50 CO: 176 QRSD: 76 QT: 462 QTc: 421 [place]: P: 72 CO: 176 QRS: 32 T: 75 INTERPRETIVE STATEMENTS: Sinus bradycardia Low voltage QRS Septal infarct, age undetermined Abnormal ECG Compared to ECG 04/22/2023 05:35:08 Low QRS voltage now present Myocardial infarct finding now present Sinus tachycardia no longer present Electronically Signed On 08-24-24 11:12:12 CDT by Ike Calhoun
[2024-08-24] MEDS ORDERED: ONDANSETRON 4 MG/2 ML VIAL IV PRN (11:44)
--- NOTE | 2024-08-24 12:46 | P.HP ---
Certification for Inpatient Patient admitted to: Observation With expected LOS: <2 Midnights Patient will require the following post-hospital care: None Practitioner: I am a practitioner with admitting privileges, knowledge of patient current condition, hospital course, and medical plan of care. Services: Services provided to patient in accordance with Admission requirements found in Title 42 Section 412.3 of the Code of Federal Regulations Patient History Date of Service: 08/24/24 Reason for admission: Syncope History of Present Illness: This is a 79-year-old female patient with a history of coronary artery disease, chronic pain, arthritis, high blood pressure that presented to the emergency room status post syncopal episode. Patient stated that upon awakening this morning had utilized the bathroom and then went to wash her hands and while washing her hands fell backwards hitting her head. Patient stated that she had trouble remembering the event and did not know if she completely blacked out or not prior to falling. Patient stated that she is on sleeping medicine and pain medicine and often times is woozy in the morning initially when getting up. Patient stated that she is also normally unsteady in her gait which is also normal for her. Upon questioning denies any shortness of breath, palpitations, chest tightness or other neurologic events preceding the episode today. Patient was worked up in the emergency room and found to have a white blood cell count of 5.2 hemoglobin of 12.2 hematocrit of 35.3 and platelet of 14.6. Patient had a sodium of 141, potassium 3.9, chloride 108, bicarb of 24, BUN of 17, creatinine 0.94, glucose of 147. EKG showed sinus bradycardia with no other acute abnormalities and troponin was initially 12.8 which is not acute. CT of the head and lumbar spine were without acute finding. Chest x-ray did show bilateral pulmonary opacities concerning for either volume overload or pneumonia. Orthostatic blood pressures were also completed and were negative. Patient denies any fever, recent illness, cough, congestion. Patient also denies any cardiopulmonary history. Allergies Sulfa (Sulfonamide Antibiotics) Allergy (Severe, Verified 04/22/23 09:25) Anaphylaxis codeine Allergy (Verified 04/22/23 09:14) Hives leflunomide Allergy (Verified 04/22/23 09:14) Hives morphine Allergy (Verified 04/22/23 09:14) Hives oxybutynin Allergy (Verified 04/22/23 09:14) Hives Penicillins Allergy (Verified 04/22/23 09:14) Anaphylaxis Home Medications: Amlodipine Besylate [Norvasc] 2.5 mg PO BREAKFAST 04/22/23 Atorvastatin Calcium 40 mg PO DAILY 04/22/23 Citalopram Hydrobromide [Celexa] 10 mg PO DAILY 04/22/23 Clopidogrel Bisulfate [Plavix] 75 mg PO DAILY 04/22/23 Ezetimibe 10 mg PO DAILY 04/22/23 Levothyroxine [Synthroid*] 50 mcg PO [id number] 04/22/23 Pregabalin 25 mg PO DAILY 04/22/23 Ropinirole HCl 2 mg PO DAILY 04/22/23 lisinopriL [Zestril] 10 mg PO DAILY 04/22/23 ALPRAZolam [Xanax] 0.25 mg PO BID PRN 08/24/24 Acyclovir 400 mg PO 5XD PRN 08/24/24 Fluticasone Propionat,Microniz [Fluticasone Propionate Micro] 2 spray NICKO DAILY 08/24/24 Pantoprazole [Protonix Tab] 40 mg PO DAILY 08/24/24 Solifenacin Succinate 5 mg PO DAILY 08/24/24 Tizanidine HCl 4 mg PO Q8HP PRN 08/24/24 Trazodone HCl 50 mg PO BEDTIME 08/24/24 - Past Medical/Surgical History Has patient received pneumonia vaccine in the past: No Diabetic: No -: Hypertension -: GERD -: Insomnia -: Hypothyroidism -: Hyperlipidemia -: Cholecystectomy -: Hysterectomy -: Tonislectomy - Social History Smoking Status: Never smoker Alcohol use: Yes CD- Drugs: No Caffeine use: No Place of Residence: Home Review of Systems General: Unremarkable Eyes: Unremarkable ENT: Unremarkable Respiratory: Unremarkable Cardiovascular: Unremarkable Gastrointestinal: Unremarkable Musculoskeletal: Unremarkable Integumentary: Unremarkable Neurological: As per HPI Physical Examination - Vital Signs Temperature: 97.9 F Blood Pressure: 141/77 Pulse: 59 Respirations: 17 Pulse Ox (%): 94 - Physical Exam General: Alert, In no apparent distress, Oriented x3, Cooperative HEENT: Normocephalic, PERRLA, Other (Small hematoma to the occipital region left side of the head.), EOMI Neck: Supple, 2+ carotid pulse no bruit, JVD not distended Respiratory: Clear to auscultation bilaterally, Normal air movement Cardiovascular: No edema, Normal pulses, Regular rate/rhythm, Normal S1 S2, No gallops, No rubs, No murmurs Capillary refill: <2 Seconds Gastrointestinal: Normal bowel sounds, Soft and benign, Non-distended, No tenderness, No masses Musculoskeletal: No clubbing, No swelling, No contractures, No erythema, No tenderness, No warmth Integumentary: No rashes, No breakdown, No significant lesion, No tenderness/swelling, No erythema, No warmth, No cyanosis Neurological: Normal speech, Normal strength at 5/5 x4 extr, Normal tone, Sensation intact, Cranial nerves 3-12 intact, Normal reflexes 2+ Lymphatics: No axilla or inguinal lymphadenopathy - Studies Laboratory Data (last 24 hrs) 08/24/24 08/24/24 08/24/24 08:13 08:13 08:13 WBC 5.20 Hgb 12.2 Hct 35.3 L Plt Count 284 PT 11.5 INR 1.01 APTT 27.2 Sodium 141 Potassium 3.9 BUN 17 Creatinine 0.94 Glucose 147 H Magnesium 2.1 Total Bilirubin 0.5 AST 23 ALT 30 Alkaline Phosphatase 118 H Assessment and Plan - Problems (Diagnosis) (1) Syncope Current Visit: Yes Status: Acute Qualifiers: Syncope type: unspecified Qualified Code(s): R55 - Syncope and collapse (2) Hypertension Current Visit: Yes Status: Chronic Qualifiers: Hypertension type: primary hypertension Qualified Code(s): I10 - Essential (primary) hypertension (3) Chronic pain Current Visit: Yes Status: Chronic Qualifiers: Chronic pain type: other chronic pain Qualified Code(s): G89.29 - Other chronic pain (4) Coronary artery disease Current Visit: Yes Status: Chronic Qualifiers: Coronary Disease-Associated Artery/Lesion type: [place] artery [place] vs. transplanted heart: [place] heart Associated angina: without angina Qualified Code(s): I25.10 - Atherosclerotic heart disease of [place] coronary artery without angina pectoris (5) Arthritis Current Visit: No Status: Chronic (6) Pulmonary congestion Current Visit: Yes Status: Acute - Plan 1. Syncope Patient admitted for acute syncopal episode, serial troponins along with daily l abs will be monitored, EKGs as necessary. Patient remain on telemetry, adding BNP, getting echocardiogram. 2. Hypertension We will continue to monitor blood pressure with routine vital signs and treat blood pressure accordingly 3. Coronary artery disease Chronic coronary artery disease, no active chest pain or anginal equivalent findings. Will continue to monitor and serial troponins and EKGs as necessary will be completed 4. Chronic pain We will continue to monitor patient's chronic pain and address it as needed with oral medications. 5. Arthritis We will continue to monitor patient and any pain is necessary 6. Pulmonary congestion New finding of pulmonary congestion on chest x-ray in which patient does not have history of recent pneumonia or congestive heart failure. Patient will have a CT of the chest for further delineation along with echocardiogram. 7. DVT prophylaxis DVT prophylaxis protocol initiated. Discharge Plan: Home Plan to discharge in: 24 Hours - Advance Directives Does patient have a Living Will: No Does patient have a Durable POA for Healthcare: No - Code Status/Comfort Care Code Status Assessed: Yes Code Status: Full Code Critical Care: No Time Spent Managing Pts Care (In Minutes): 45
--- NOTE | 2024-08-24 13:20 | RAD REPORT ---
EXAM: Chest Abdomen Pelvis W Cont CLINICAL INDICATION: Female, 79 years Abnormal CXR TECHNIQUE: CT chest, abdomen and pelvis was performed, with IV contrast, as per department protocol. Axial, sagittal and coronal reconstructions were obtained. One or more of the following dose reduction techniques were used: Automated exposure control, adjustment of the mA and/or kV according to the patient size, and/or iterative reconstruction. Unless otherwise specified, incidental findings do not require dedicated imaging follow-up. [id number]. COMPARISON: Same-day lumbar spine CT, CT 04/22/2023 FINDINGS: ---THORAX--- LOWER NECK AND CHEST WALL: Visualized thyroid gland and soft tissues are normal. MEDIASTINUM AND LYMPH NODES: No mediastinal mass or fluid collection. Normal size mediastinal, hilar, and axillary lymph nodes. Mild distal esophageal thickening. THORACIC AORTA: No thoracic aortic aneurysm. Atherosclerotic changes are present. PULMONARY ARTERIES: Caliber is within normal limits. No pulmonary emboli identified. HEART: Normal heart size. No coronary calcifications.No significant pericardial effusion. LUNGS AND AIRWAYS: Airways are clear. No evidence of airspace or interstitial process. Motion artifac t limits evaluation for pulmonary nodule detection. PLEURA: No pleural effusion. No pneumothorax. ---ABDOMEN/PELVIS--- UPPER GI: No significant abnormality. LIVER: Steatosis. No intrahepatic biliary duct dilatation. GALLBLADDER/BILE DUCTS: Cholecystectomy. Moderate extrahepatic biliary ductal dilatation. This could be secondary to the post-cholecystectomy state. Recommend correlation with LFT's. If abnormal, consider MRCP for further evaluation. ? PANCREAS: No mass, ductal dilation, or zulma-pancreatic fluid. SPLEEN: Unremarkable. ADRENALS: No adrenal masses. KIDNEYS AND URETERS: No hydronephrosis.No suspicious renal mass.Nonobstructing renal calculi. ABDOMINAL AORTA AND OTHER VESSELS: Mild atherosclerotic changes. PERITONEUM: No abnormal free fluid. No free air. LYMPH NODES: No pathologic lymphadenopathy. ABDOMINAL WALL: Unremarkable SMALL BOWEL/COLON: Small bowel has normal course and caliber. No colonic wall thickening or pericolon ic inflammatory changes. Moderate formed stool burden. URINARY BLADDER: Nonspecific circumferential bladder wall thickening. REPRODUCTIVE ORGANS: Uterus surgically absent. No adnexal abnormality. ---COMBINED--- MUSCULOSKELETAL: No acute or suspicious osseous abnormality. ADDITIONAL FINDINGS: None. IMPRESSION: No acute findings within the chest, abdomen, or pelvis. Cholecystectomy. Chronic extrahepatic biliary duct dilatation. Correlate with LFTs. If abnormal, coul d consider ERCP for further evaluation to exclude choledocholithiasis or stricture.
[2024-08-24] MEDS: ACETAMINOPHEN 325 MG TABLET PO PRN (20:17)
[2024-08-25 04:40] VITALS: O2SAT 96
[2024-08-25] MEDS: AMLODIPINE 2.5 MG TAB PO SCH (04:48)
[2024-08-25 07:04] LABS: Absolute Eosinophils 0.2 K/uL (0-0.5); Absolute Monocytes 0.6 K/uL (0.1-1.3); Absolute Neutrophil 3.1 K/uL (1.8-8.0); Basophils % 0.8 % (0-1.3); Eosinophils % 2.9 % (0-4.4); Hematocrit 36.9 % (36.0-45.0); Hemoglobin 12.7 g/dL (12.0-15.0); Lymphocytes % 34.5 % (15.3-44.8); MCH 29.1 pg (27.0-35.0); MCHC 34.4 g/dL (32.0-36.0); MCV 84.4 fL (80-100); MPV 8.6 fL (7.6-11.3); Monocytes % 9.6 % (3.3-12.3); Neutrophils % 52.2 % (41.7-73.7); Platelets 270 thou/uL (152-406); RBC Red Blood Cell Count 4.37 M/uL (3.86-4.86); Red Cell Distribution Width 14.4 % (12.1-15.2)
[2024-08-25 07:21] LABS: Anion Gap 7.5 mEq/L (5.0-15.0); Potassium 3.5 mEq/L (3.5-5.1); Troponin High Sensitivity 13.9 pg/mL (<58.9)
[2024-08-25] MEDS ORDERED: TIZANIDINE 4 MG TABLET PO PRN (08:28)
[2024-08-25] MEDS: VESICARE 5 MG PO SCH (09:00)
[2024-08-25] MEDS: [UNRECOGNIZED DRUG - OTHER] NAS SCH (09:00)
[2024-08-25] MEDS: CITALOPRAM 10 MG TABLET PO SCH (09:00)
[2024-08-25] MEDS: CLOPIDOGREL 75 MG TABLET PO SCH (09:02)
[2024-08-25] MEDS: lisinopriL 10 MG TAB PO SCH (09:02)
[2024-08-25] MEDS: PANTOPRAZOLE 40MG TABLET PO SCH (09:02)
[2024-08-25] MEDS: ROPINIROLE HCL 1 MG TAB PO SCH (09:02)
[2024-08-25] MEDS: EZETIMIBE 10 MG TAB PO SCH (09:02)
[2024-08-25] MEDS: PREGABALIN 25 MG CAPSULE PO SCH (09:03)
--- NOTE | 2024-08-25 11:49 | P.CNS ---
Date of Consult: 08/25/24 Chief Complaint: Syncope History of Present Illness: Patient with PMH of CAD, no stents, HTN, presented with a fall, patient mention that she is not sure if she passed out, she did not sleep for the last 4 days, as she has been having insomnia, denies chest pain, no palpitation , no breathing problems. Allergies Sulfa (Sulfonamide Antibiotics) Allergy (Severe, Verified 04/22/23 09:25) Anaphylaxis codeine Allergy (Verified 04/22/23 09:14) Hives leflunomide Allergy (Verified 04/22/23 09:14) Hives morphine Allergy (Verified 04/22/23 09:14) Hives oxybutynin Allergy (Verified 04/22/23 09:14) Hives Penicillins Allergy (Verified 04/22/23 09:14) Anaphylaxis Home medications list reviewed: Yes Home Medications: Amlodipine Besylate [Norvasc] 2.5 mg PO BREAKFAST 04/22/23 Atorvastatin Calcium 40 mg PO DAILY 04/22/23 Citalopram Hydrobromide [Celexa] 10 mg PO DAILY 04/22/23 Clopidogrel Bisulfate [Plavix] 75 mg PO DAILY 04/22/23 Ezetimibe 10 mg PO DAILY 04/22/23 Levothyroxine [Synthroid*] 50 mcg PO [id number] 04/22/23 Pregabalin 25 mg PO DAILY 04/22/23 Ropinirole HCl 2 mg PO DAILY 04/22/23 lisinopriL [Zestril] 10 mg PO DAILY 04/22/23 ALPRAZolam [Xanax] 0.25 mg PO BID PRN 08/24/24 Acyclovir 400 mg PO 5XD PRN 08/24/24 Fluticasone Propionat,Microniz [Fluticasone Propionate Micro] 2 spray NICKO DAILY 08/24/24 Pantoprazole [Protonix Tab] 40 mg PO DAILY 08/24/24 Solifenacin Succinate 5 mg PO DAILY 08/24/24 Tizanidine HCl 4 mg PO Q8HP PRN 08/24/24 Trazodone HCl 50 mg PO BEDTIME 08/24/24 - Past Medical/Surgical History Diabetic: No -: Hypertension -: GERD -: Insomnia -: Hypothyroidism -: Hyperlipidemia -: Cholecystectomy -: Hysterectomy -: Tonislectomy - Social History Alcohol use: Yes CD- Drugs: No Caffeine use: No Place of Residence: Home Review of Systems 10-point ROS is otherwise unremarkable Physical Examination Temp Pulse Resp BP Pulse Ox 98.2 F 59 18 184/80 H 96 08/25/24 08:00 08/25/24 09:02 08/25/24 08:00 08/25/24 09:02 08/25/24 08:00 General: Alert, In no apparent distress HEENT: Atraumatic, PERRLA, Mucous membr. moist/pink, EOMI, Sclerae nonicteric Neck: Supple, 2+ carotid pulse no bruit, No LAD, Without JVD or thyroid abnormality Respiratory: Clear to auscultation bilaterally, Normal air movement Cardiovascular: Regular rate/rhythm, Normal S1 S2 Gastrointestinal: Normal bowel sounds, No tenderness Musculoskeletal: No tenderness Integumentary: No rashes Neurological: Normal gait, Normal speech, Normal tone, Normal affect Lymphatics: No axilla or inguinal lymphadenopathy - Problems (1) Syncope Current Visit: Yes Status: Acute Plan: most likely non cardiac and secondary to lack of sleep for the last 4 days, tele did not show any arrhythmia. get echo EKG and cardiac enzymes are negative. recommend patient to follow up with her ocean forwarder for an event monitor. Qualifiers: Syncope type: unspecified Qualified Code(s): R55 - Syncope and collapse (2) Coronary artery disease Current Visit: Yes Status: Chronic Plan: no stents, EKG and cardiac enzymes are negative, outpatient follow up with cardiology. Qualifiers: Coronary Disease-Associated Artery/Lesion type: [place] artery [place] vs. transplanted heart: [place] heart Associated angina: without angina Qualified Code(s): I25.10 - Atherosclerotic heart disease of [place] coronary artery without angina pectoris (3) Hypertension Current Visit: Yes Status: Chronic Plan: patient BP is still high increase lisinopril to 20 mg daily increase Norvasc to 5 mg daily continue to monitor. Qualifiers: Hypertension type: primary hypertension Qualified Code(s): I10 - Essential (primary) hypertension
[2024-08-25] MEDS ORDERED: HYDRALAZINE HCL 20 MG/ML VIAL IV PRN (11:58)
--- NOTE | 2024-08-25 13:53 | P.DS ---
Admission Date: 08/24/24 Discharge Date: 08/25/24 Disposition: ROUTINE DISCHARGE Discharge Condition: GOOD Reason for Admission: Syncope Brief History of Present Illness: 79-year-old woamn with a history of coronary artery disease, chronic pain, arthritis, high blood pressure presented to the emergency room after syncopal episode with a fall from the standing position. No reported chest pain or palpitation prior to the fall or after the fall. Evaluation in the emergency department showed unremarkable blood work, negative troponin. CT head and lumbar spine were without acute findings. Chest x-ray did show bilateral pulmonary opacities concerning for either volume overload or pneumonia. Orthostatic blood pressures were also completed and were negative. Patient denied any fever. She has a history of coronary artery disease status post cardiac stent. Patient was hospitalized for further evaluation management. Hospital Course: Diagnosis Syncope Uncontrolled hypertension History of coronary artery disease Chronic pain syndrome Patient placed under observation on the medical floor. Troponin trended negative. EKG did not show any acute ischemia. Telemetry was unremarkable. Patient was seen and evaluated by cardiology given her cardiac history. Syncopal episode deemed noncardiac, no arrhythmia. Echocardiogram done showed normal EF, no wall motion abnormality. Patient blood pressure was elevated during the hospital stay. Her amlodipine dose increased from 2.5 mg to 5 mg daily and lisinopril increased from 10 mg to 20 mg daily per cardiology recommendation. Patient blood pressure readings improved with these measures. Patient chest x-ray suggested possible pulmonary congestion versus pneumonia. This was followed by CT chest which showed no acute lung disease. Patient has been asymptomatic during the hospital stay. She is ambulatory and currently has no symptoms. Patient is discharged stable for discharge per cardiology. Patient is informed to follow-up with her websphere commerce developer as outpatient. Vital Signs/Physical Exam: Temp Pulse Resp BP Pulse Ox 97.7 F 64 18 144/67 H 96 08/25/24 12:00 08/25/24 13:00 08/25/24 12:00 08/25/24 13:00 08/25/24 12:00 General: Alert, In no apparent distress, Oriented x3 HEENT: Mucous membr. moist/pink, Sclerae nonicteric Neck: Supple, JVD not distended Respiratory: Clear to auscultation bilaterally, Normal air movement Cardiovascular: No edema, Regular rate/rhythm, Normal S1 S2 Gastrointestinal: Normal bowel sounds, Soft and benign, Non-distended, No tenderness Musculoskeletal: No swelling Integumentary: No rashes, No cyanosis Neurological: Normal speech, Normal strength at 5/5 x4 extr, Cranial nerves 3-12 intact Laboratory Data at Discharge: WBC 5.90 thou/uL (4.3-10.9) 08/25/24 06:47 Hgb 12.7 g/dL (12.0-15.0) 08/25/24 06:47 Hct 36.9 % (36.0-45.0) 08/25/24 06:47 Plt Count 270 thou/uL (152-406) 08/25/24 06:47 PT 11.5 SECONDS (10-13.0) 08/24/24 08:13 INR 1.01 08/24/24 08:13 APTT 27.2 SECONDS (27.2-37.4) 08/24/24 08:13 Sodium 142 mEq/L (136-145) 08/25/24 06:47 Potassium 3.5 mEq/L (3.5-5.1) 08/25/24 06:47 BUN 13 mg/dL (7-18) 08/25/24 06:47 Creatinine 0.89 mg/dL (0.55-1.02) 08/25/24 06:47 Glucose 110 mg/dL (74-106) H 08/25/24 06:47 Magnesium 2.1 mg/dL (1.6-2.4) 08/24/24 08:13 Total Bilirubin 0.5 mg/dL (0.2-1.0) 08/24/24 08:13 AST 23 U/L (15-37) 08/24/24 08:13 ALT 30 U/L (13-56) 08/24/24 08:13 Alkaline Phosphatase 118 U/L (45-117) H 08/24/24 08:13 Home Medications: Atorvastatin Calcium 40 mg PO DAILY 04/22/23 Citalopram Hydrobromide [Celexa] 10 mg PO DAILY 04/22/23 Clopidogrel Bisulfate [Plavix] 75 mg PO DAILY 04/22/23 Ezetimibe 10 mg PO DAILY 04/22/23 Levothyroxine [Synthroid*] 50 mcg PO [id number] 04/22/23 Pregabalin 25 mg PO DAILY 01/24/24 Ropinirole HCl 2 mg PO DAILY 04/22/23 ALPRAZolam [Xanax*] 0.25 mg PO BID PRN 08/24/24 Acyclovir 400 mg PO 5XD PRN 08/24/24 Fluticasone Propionat,Microniz [Fluticasone Propionate Micro] 2 spray NICKO DAILY 08/24/24 Pantoprazole [Protonix Tab*] 40 mg PO DAILY 08/24/24 Solifenacin Succinate 5 mg PO DAILY 08/24/24 Tizanidine HCl 4 mg PO Q8HP PRN 08/24/24 Trazodone HCl 50 mg PO BEDTIME 08/24/24 Amlodipine [Norvasc*] 5 mg PO DAILY #30 tab 08/25/24 lisinopriL [Lisinopril] 20 mg PO DAILY #30 tab 08/25/24 New Medications: lisinopriL [Lisinopril] 20 mg PO DAILY #30 tab Amlodipine [Norvasc*] 5 mg PO DAILY #30 tab Diet: AHA Activity: Fall precautions Followup: Carl Berg DO [Primary Care Provider] - 1-2 Weeks Time spent managing pt's care (in minutes): 33
--- NOTE | 2024-08-25 14:33 | ECHO ---
HEIGHT: 5 ft 2 in WEIGHT: 130 lb 0 oz DATE OF STUDY: 08/24/[address]: Eb Donaldson 2-DIMENSIONAL: YES M.MODE: YES DOPPLER: YES COLOR FLOW: YES TDS: PORTABLE: YES DEFINITY: BUBBLE STUDY: DIAGNOSIS: CORONARY ARTERY DISEASE WITH SYNCOPE CARDIAC HISTORY: CATHERIZATION: SURGERY: PROSTHETIC VALVE: PACEMAKER: MEASUREMENTS (cm) DIASTOLIC (NORMALS) SYSTOLIC (NORMALS) IVSd 1.1 (0.6-1.2) LA Diam 3.1 (1.9-4.0) LVEF 60-65% LVIDd 4.0 (3.5-5.7) LVIDs 2.7 (2.0-3.5) %FS 33% LVPWd 1.1 (0.6-1.2) Ao Diam 3.1 (2.0-3.7) 2 DIMENSIONAL ASSESSMENT: RIGHT ATRIUM: NORMAL LEFT ATRIUM: NORMAL RIGHT VENTRICLE: NORMAL LEFT VENTRICLE: NORMAL TRICUSPID VALVE: MILD TRICUSPID REGURGITATION MITRAL VALVE: NORMAL PULMONIC VALVE: NORMAL AORTIC VALVE: MILD AORTIC REGURGITATION PERICARDIAL EFFUSION: NONE AORTIC ROOT: NORMAL LEFT VENTRICULAR WALL MOTION: NORMAL DOPPLER/COLOR FLOW: NORMAL COMMENTS: 1. NORMAL LEFT VENTRICULAR SYSTOLIC FUNCTION, EJECTION FRACTION 60-65%, NORMAL WALL MOTION 2. NORMAL DIASTOLIC FUNCTION 3. MILD AORTIC REGURGITATION TECHNOLOGIST: JULIAN MATTHEW
[2024-08-25 15:29] VITALS: BP 151/66
[2024-08-25] MEDS: AMLODIPINE 2.5 MG TAB PO ONE (15:29)
[2024-08-25 15:54] VITALS: BMI 23.8
[2024-08-25 16:52] VITALS: TEMP 98.2
[2024-08-25] MEDS ORDERED: ATORVASTATIN 40 MG TAB PO SCH (21:00)
[2024-08-25] MEDS ORDERED: TRAZODONE 50 MG TABLET PO SCH (21:00)
[2024-08-26] MEDS ORDERED: LEVOTHYROXINE SOD 0.05 MG TABLET PO SCH (06:00)
[2024-08-26] MEDS ORDERED: AMLODIPINE 5 MG TAB PO SCH (08:00)
[2024-08-26] MEDS ORDERED: AMLODIPINE 2.5 MG TAB PO SCH (08:00)
[2024-08-26] MEDS ORDERED: lisinopriL 20 MG TAB PO SCH (09:00)
== END 2024-08-25 17:19 | disposition home or self-care (01) ==
LOC: ER 07:36 → ERHOLD 10:26 → 2ND 11:03
PROVIDERS: ADMIT Internal Medicine; ATTEND Internal Medicine
DX: R55 Syncope and collapse (principal); I25.10 Atherosclerotic heart disease of native coronary artery without angina pectoris; G89.29 Other chronic pain; M19.90 Unspecified osteoarthritis, unspecified site; I10 Essential (primary) hypertension; R09.89 Other specified symptoms and signs involving the circulatory and respiratory systems; Z88.5 Allergy status to narcotic agent; Z88.3 Allergy status to other anti-infective agents; Z88.0 Allergy status to penicillin
CPT/HCPCS: 96361; 93005; 93306; 85025 ×2; 80048 ×2; 36415; 83735; 85610; 80076; 85730; 83036; 84484 ×3; 83880; 72131; 70450; 71260; 74177; 71045; 96360; 99285; Q9967; J7030; G0378 ×3; 90715; J0360